=== PATIENT | male | born 1955 | race Caucasian/White ===

== ENCOUNTER 2023-06-20 19:10 | Inpatient (IN) | payer BC, MEDICARE, SELFPAY ==
--- NOTE | 2023-06-19 19:23 | ECG_ITS ---
The [facility] Test Date: 2023-06-20 Pat Name: FIONA BOSS Department: Room: [facility] Gender: Male [employer]: : 1955 Requested By: [id number] Order Number: [id number] Reading MD: RANJANA JOSEPH Measurements Intervals Murray Rate: 116 P: 16 HI: 172 QRS: -42 QRSD: 86 T: 26 QT: 298 QTc: 367 Interpretive Statements 1120 Sinus tachycardia 7200 Abnormal left axis deviation 9140 abnormal rhythm ECG No previous ECG available for comparison Electronically Signed On 06-21-2023 6:45:12 EDT by RANJANA JOSEPH
[2023-06-20] VITALS (19 sets, daily range): BP systolic 83–149; BP diastolic 59–100; PULSE 18–118; TEMP 36.6–40.3; O2SAT 90–95; BMI 25.7; BMI 27.1
--- NOTE | 2023-06-20 19:26 | XR_ITS ---
The [place] [id number] Patient Name: FIONA BOSS MRN: [id number] date: 1955 Sex: M Assigned Patient Location: ED.MAIN Current Patient Location: ED.MAIN Accession/Order Number: [id number] Exam Date: 06/20/2023 19:48 Report Date: 06/20/2023 21:07 At the request of: LINDY MARKER Procedure: XR chest 2V EXAMINATION: XR chest 2V, , 06/20/2023 7:48 PM EDT INDICATION: fever, cough HISTORY: Ordering Provider Reason for Exam: fever, cough Technologist Note: Additional: COMPARISON: None. TECHNIQUE: Chest x-ray: Two views. FINDINGS: Patchy infiltrates are seen in the right lung. No significant pleural effusion or obvious pneumothorax is seen. Heart is normal in size. Bony thorax is unremarkable. XR/XR chest 2V IMPRESSION: Patchy infiltrates are seen in the right lung. Electronically authenticated by: KEELEY VILLAR Date: 06/20/2023 21:07
--- NOTE | 2023-06-20 19:33 | ED_ITS ---
HPI HPI - General Adult General Chief complaint: Weakness Stated complaint: General Weakness Time Seen by Provider: 06/20/23 19:16 Source: patient and family Mode of arrival: Wheelchair Limitations: physical limitation History of Present Illness HPI narrative: 68-year-old male with history of hypothyroidism is brought to the emergency department by his for evaluation of a fever that started Ortega night. She has not taken his temperature but he has felt hot and had chills and been weak. His appetite has been decreased. He has had an occasional dry cough. He has also had body aches. He has been urinating normally and denies any dysuria or hematuria. She has been giving him ibuprofen and Advil for the fever. He did not have any medications since this morning before the patient's went to work. He has been eating, mostly fruit. He has not had any nausea vomiting and diarrhea. He admits to a mild headache. He appears weak. He does not have any skin rash. He has no neck pain or stiffness. He denies any chest pain. He has has been occasional dry cough. Related Data Home Medications ?Medication ?Instructions ?Recorded ?Confirmed levothyroxine 100 mcg tablet 100 mcg PO .once daily 06/20/23 06/20/23 Allergies Allergy/AdvReac Type Severity Reaction Status Date / Time aspirin Allergy Severe Anaphylaxis Verified 06/20/23 19:24 Penicillins Allergy Hives Verified 06/20/23 19:24 Opioid HPI Opioid Management Most Recent Opioid Data: Last Pain Assessment 06/21/23 02:00 Last MAR Pain Assessment 06/20/23 19:58 Last ORT Total Score 0 06/20/23 22:33 Last ORT Risk Category Low Risk 06/20/23 22:33 Review of Systems ROS Status of ROS 10 or more systems reviewed and unremark able except as noted in history and below [facility] Medical History (Updated 06/21/23 @ 02:42 by Meaghan Rowan MD) Hypothyroidism ?E03.9 - Hypothyroidism, unspecified (ICD-10) Family History (Updated 06/20/23 @ 22:37 by Bee Kuo) Other Family history of cancer Family history of stroke Social History (Updated 06/20/23 @ 22:38 by Bee Kuo) Within the past year, how often did you have a drink containing alcohol: never Score interpretation: A score less than 4 is consistent with normal alcohol consumption. Smoking status: Never smoker Non-prescribed substance use: denies use Previous occupational history: [employer] Highest level of school completed/degree received: Associate degree: occupational, technical, vocational program Are you now , , , , never or living with a partner: In a typical week, how many times do you talk on the telephone with family, friends, or neighbors: 3 or more times per week How often do you get together with friends or relatives: 3 or more times per week Little interest or pleasure in doing things: not at all Feeling down, depressed, or hopeless: not at all Feel stressed/tense/nervous/anxious/difficulty sleeping: not at all Do you think of yourself as: straight/heterosexual Gender Identity: male Exam Narrative Exam Narrative: Nurses note and vital signs reviewed; He is febrile, tachycardic and mildly hypoxic with pulse ox of 91 percent on room air General: Generally weak and pale, no respiratory distress Skin: Warm, dry, no pallor noted. There is no rash noted. Head: Normocephalic, atraumatic Eye: Normal conjunctiva, no drainage, EOMI. PERRL Ears, Nose, Mouth, and Throat: oral mucosa is sticky, there is no swelling of the tongue, uvula or pharyngeal soft tissues, no tonsillar erythema or hypertrophy noted Cardiovascular: Regular Rate and Rhythm S1S2, no murmurs, rubs or gallops, pulses are brisk and equal bilaterally Respiratory: Patient is in no distress, no accessory muscle use, lungs are clear to auscultation, no wheezing, rales or rhonchi Back: non-tender, no CVA tenderness bilaterally to percussion. GI: Normal bowel sounds, no tenderness to palpation, no masses appreciated. No rebound, guarding, or rigidity noted. Musculoskeletal: The patient has no evidence of calf tenderness, no pitting edema, symmetrical pulses noted bilaterally Neurological: A&O x4, normal speech, no focal deficits, generalized weakness requiring nurses to help him out of car Psychiatric: Cooperative Constitutional Vital Signs, click to edit/add: Last Vital Signs Temp 97.8 F 06/20/23 22:14 Pulse 69 06/21/23 02:00 Resp 20 06/20/23 22:44 BP 100/72 06/20/23 22:25 Pulse Ox 90 L 06/20/23 22:44 O2 Del Method Room Air 06/20/23 22:44 Course Vital Signs Vital signs: Vital Signs Temperature 98.3 F 06/20/23 19:19 Pulse Rate 118 H 06/20/23 19:19 Respiratory Rate 24 H 06/20/23 19:19 Blood Pressure 148/100 H 06/20/23 19:19 Pulse Oximetry 91 L 06/20/23 19:19 Oxygen Delivery Method Room Air 06/20/23 19:19 Temperature 97.8 F 06/20/23 22:14 Pulse Rate 69 06/21/23 02:00 Respiratory Rate 20 06/20/23 22:44 Blood Pressure 100/72 06/20/23 22:25 Pulse Oximetry 90 L 06/20/23 22:44 Oxygen Delivery Method Room Air 06/20/23 22:44 Medical Decision Making MDM Narrative Medical decision making narrative: This 68-year-old male history of hypothyroidism is brought to the emergency department by his for evaluation of a fever since last Sunday. He has a mild dry cough. He is very weak with body aches and chills. His appetite is been decreased but he has been eating fruit according to his . She has been giving him ibuprofen and Aleve for his fever. His last dose was earlier in the day. On arrival he had to be helped out of the car due to his generalized weakness. He was very warm to the touch and an oral temperature was normal. Rectal temperature was 104.5. A septic workup was ordered and he was given IV fluids, Tylenol and Toradol. He has a normal white count and hemoglobin. Electrolytes are normal with the exception of a mildly low sodium of 132 and potassium of 3.1. He had a normal lactic acid but procalcitonin was elevated. He was given oral potassium replacement. Chest x-ray shows right sided infiltrate and he was medicated with IV Levaquin as he is penicillin ALLERGIC. Respiratory panel was negative. His pulse ox on room air was in the low 90s and he was given a respiratory treatment and 125 mg of IV Solu-Medrol. Due to his high fever and pneumonia with hypoxia he will be admitted. The case was discussed with the hosp italist he is accepted for admission to [facility]. Blood cultures are pending at this time. Lab Data Labs: Lab Results 06/20/23 06/20/23 Range/Units 19:36 19:41 WBC 10.6 (4.0-11.0) 10^3/uL RBC 5.22 (4.70-6.10) 10^6/uL Hgb 15.3 (14.0-18.0) g/dL Hct 45.5 (42.0-54.0) % MCV 87.2 (80.0-94.0) fL MCH 29.3 (25.9-34.0) pg MCHC 33.6 (29.9-35.2) g/dL RDW 13.0 (11.0-15.0) % Plt Count 217 (150-450) 10^3/uL MPV 9.6 (9.5-13.5) fL Neut % (Auto) 85.6 H (43.0-75.0) % Lymph % (Auto) 7.8 L (20.5-60.0) % [place] % (Auto) 5.5 (1.7-12.0) % Eos % (Auto) 0.0 L (0.9-7.0) % Baso % (Auto) 0.3 (0.2-2.0) % Neut # (Auto) 9.1 H (1.4-6.5) 10^3/uL Lymph # (Auto) 0.8 L (1.2-3.8) 10^3/uL [place] # (Auto) 0.6 (0.3-0.8) 10^3/uL Eos # (Auto) 0.0 (0.0-0.7) 10^3/uL Baso # (Auto) 0.0 (0.0-0.1) 10^3/uL Abs Immat Gran (auto) 0.08 H (0.00-0.03) 10^3/uL Imm/Tot Granulo (auto) 0.8 H (0.0-0.5) % PT 11.2 (9.0-11.6) sec INR 1.06 APTT 32.6 (22.3-36.2) sec Sodium 132 L (136-145) mmol/L Potassium 3.1 L (3.5-5.1) mmol/L Chloride 97 L (98-107) mmol/L Carbon Dioxide 20.4 L (21.0-32.0) mmol/L Anion Gap 17.7 BUN 23.0 H (7.0-18.0) mg/dL Creatinine 1.68 H (0.70-1.30) mg/dL Est GFR ( Amer) 49 L (>=60) Est GFR (Non-Af Amer) 41 L (>=60) BUN/Creatinine Ratio 13.7 Glucose 141 H (74-106) mg/dL Lactate 2.0 (0.4-2.0) mmol/L Calcium 8.8 (8.5-10.1) mg/dL Total Bilirubin 1.2 H (0.2-1.0) mg/dL AST 38 H (15-37) U/L ALT 27 (16-63) U/L Alkaline Phosphatase 70 (46-116) U/L Total Protein 7.1 (6.4-8.2) g/dL Albumin 2.9 L (3.4-5.0) g/dL Globulin 4.2 g/dL Albumin/Globulin Ratio 0.7 Procalcitonin 0.63 H (0.00-0.50) ng/mL Adenovirus (PCR) Not detected (NOT DETECTE) C. pneumoniae DNA (PCR) Not detected (NOT DETECTE) Coronavirus Type OC43 Not detected (NOT DETECTE) Coronavirus Type HKU1 Not detected (NOT DETECTE) Coronavirus Type 229E Not detected (NOT DETECTE) Coronavirus Type NL63 Not detected (NOT DETECTE) Human Metapneumovir PCR Not detected (NOT DETECTE) M. pneumoniae (PCR) Not detected (NOT DETECTE) Parainfluenza PCR Not detected (NOT DETECTE) Parainfluenza 2 (PCR) Not detected (NOT DETECTE) Parainfluenza 3 (PCR) Not detected (NOT DETECTE) Parainfluenza 4 (PCR) Not detected (NOT DETECTE) RSV (RT-PCR) Not detected (NOT DETECTE) Entero/Rhino (PCR) Not detected (NOT DETECTE) SARS-CoV-2 (PCR) Not detected (NOT DETECTE) Bordetella pertussis (PCR) Not detected (NOT DETECTE) B parapertussis DNA PCR Not detected (NOT DETECTE) Influenza Type A (PCR) Not detected (NOT DETECTE) Influenza Type B (PCR) Not detected (NOT DETECTE) ECG Data Attestation: I personally reviewed and interpreted this ECG as follows: (Sinus tachycardia at 116 beats for minute, left axis deviation, no acute ST segment elevation or T-wave inversion) Discharge Plan Discharge Chief Complaint: Weakness Clinical Impression: Pneumonia Patient Disposition: Admitted As Inpatient Time of Disposition Decision: 21:48 Condition: Fair Discharge Date/Time: 06/20/23 22:25
[2023-06-20 19:54] LABS: Basophils Percent Auto 0.3 % (0.2-2.0); Hematocrit 45.5 % (42.0-54.0); Hemoglobin 15.3 g/dL (14.0-18.0); Immature Granulocytes Abs Auto 0.08 10^3/uL (0.00-0.03); Immature Granulocytes Pct Auto 0.8 % (0.0-0.5); Lymphocytes Absolute Auto 0.8 10^3/uL (1.2-3.8); Lymphocytes Percent Auto 7.8 % (20.5-60.0); Mean Corpuscular HGB Conc 33.6 g/dL (29.9-35.2); Mean Corpuscular Hemoglobin 29.3 pg (25.9-34.0); Mean Corpuscular Volume 87.2 fL (80.0-94.0); Mean Platelet Volume 9.6 fL (9.5-13.5); Monocytes Absolute Auto 0.6 10^3/uL (0.3-0.8); Monocytes Percent Auto 5.5 % (1.7-12.0); Neutrophils Absolute Auto 9.1 10^3/uL (1.4-6.5); Neutrophils Percent Auto 85.6 % (43.0-75.0); Platelet Count 217 10^3/uL (150-450); Red Blood Count 5.22 10^6/uL (4.70-6.10); White Blood Count 10.6 10^3/uL (4.0-11.0)
[2023-06-20 19:55] LABS: Adenovirus NOT DETECTED (NOT DETECTE); Bordetella parapertussis NOT DETECTED (NOT DETECTE); Coronavirus 229E NOT DETECTED (NOT DETECTE); Coronavirus HKU1 NOT DETECTED (NOT DETECTE); Coronavirus NL63 NOT DETECTED (NOT DETECTE); Coronavirus OC43 NOT DETECTED (NOT DETECTE); Human Metapneumovirus NOT DETECTED (NOT DETECTE); Human Rhinovirus/Enterovirus NOT DETECTED (NOT DETECTE); Influenza A NOT DETECTED (NOT DETECTE); Influenza B NOT DETECTED (NOT DETECTE); Mycoplasma pneumoniae NOT DETECTED (NOT DETECTE); Parainfluenza Virus 1 NOT DETECTED (NOT DETECTE); Parainfluenza Virus 2 NOT DETECTED (NOT DETECTE); Parainfluenza Virus 3 NOT DETECTED (NOT DETECTE); Parainfluenza Virus 4 NOT DETECTED (NOT DETECTE); Respiratory Syncytial Virus NOT DETECTED (NOT DETECTE); SARS-CoV-2 NOT DETECTED (NOT DETECTE)
[2023-06-20] MEDS: ACETAMINOPHEN 325 MG TABLET 650 MG PO (19:58)
[2023-06-20] MEDS: LACTATED RINGER'S SOLUTION 1,000 ML 1000 ML IV ×2 (19:58→22:19)
[2023-06-20 20:19] LABS: Alanine Aminotransferase 27 U/L (16-63); Albumin Globulin Ratio 0.7; Albumin Level 2.9 g/dL (3.4-5.0); Alkaline Phosphatase 70 U/L (46-116); Anion Gap 17.7; Aspartate Amino Transferase 38 U/L (15-37); BUN Creatinine Ratio 13.7; Bilirubin Total 1.2 mg/dL (0.2-1.0); Calcium 8.8 mg/dL (8.5-10.1); Carbon Dioxide 20.4 mmol/L (21.0-32.0); Chloride 97 mmol/L (98-107); Estimated GFR (African America 49 (>=60); Estimated GFR (Non-African Ame 41 (>=60); Globulin 4.2 g/dL; Glucose 141 mg/dL (74-106); Potassium 3.1 mmol/L (3.5-5.1); Sodium 132 mmol/L (136-145); Total Protein 7.1 g/dL (6.4-8.2)
[2023-06-20 20:21] LABS: Partial Thromboplastin Time 32.6 sec (22.3-36.2)
[2023-06-20 20:22] LABS: INR 1.06; Prothrombin Time 11.2 sec (9.0-11.6)
[2023-06-20] MEDS: LEVOFLOXACIN IN DEXTROSE 5 % 750 MG/150 ML IV.SOLN 100 MG IV (20:28)
[2023-06-20 20:31] LABS: PROCALCITONIN 0.63 ng/mL (0.00-0.50)
[2023-06-20] MEDS: KETOROLAC TROMETHAMINE 30 MG/ML VIAL IVP (20:31)
[2023-06-20] MEDS: POTASSIUM CHLORIDE 10 MEQ ER TABLET 20 MEQ PO (21:10)
[2023-06-20] MEDS: IPRATROPIUM/ALBUTEROL SULFATE 3 ML AMPUL.NEB IH (21:24)
[2023-06-20] MEDS: METHYLPREDNISOLONE SOD SUCC PF 125 MG/2 ML VIAL IVP (22:03)
[2023-06-20 23:22] LABS: Lactate/Lactic Acid 2.7 mmol/L (0.4-2.0)
[2023-06-20] MEDS: 0.9 % SODIUM CHLORIDE 1,000 ML 100 ML IV (23:38)
[2023-06-21] VITALS (57 sets, daily range): BP systolic 110–166; BP diastolic 72–108; PULSE 62–85; TEMP 34.4–36.4; O2SAT 87–96
[2023-06-21 04:52] LABS: Basophils Percent Auto 0.1 % (0.2-2.0); Hematocrit 42.6 % (42.0-54.0); Hemoglobin 14.3 g/dL (14.0-18.0); Immature Granulocytes Abs Auto 0.06 10^3/uL (0.00-0.03); Immature Granulocytes Pct Auto 0.7 % (0.0-0.5); Lymphocytes Absolute Auto 0.7 10^3/uL (1.2-3.8); Mean Corpuscular HGB Conc 33.6 g/dL (29.9-35.2); Mean Corpuscular Hemoglobin 29.4 pg (25.9-34.0); Mean Corpuscular Volume 87.7 fL (80.0-94.0); Mean Platelet Volume 9.9 fL (9.5-13.5); Monocytes Absolute Auto 0.4 10^3/uL (0.3-0.8); Monocytes Percent Auto 4.1 % (1.7-12.0); Neutrophils Absolute Auto 7.9 10^3/uL (1.4-6.5); Neutrophils Percent Auto 87.1 % (43.0-75.0); Platelet Count 206 10^3/uL (150-450); Red Blood Count 4.86 10^6/uL (4.70-6.10)
[2023-06-21 05:09] LABS: Lactate/Lactic Acid 1.8 mmol/L (0.4-2.0)
[2023-06-21] MEDS: LEVOTHYROXINE SODIUM 100 MCG TABLET PO (05:37)
[2023-06-21] MEDS: METHYLPREDNISOLONE SOD SUCC PF 125 MG/2 ML VIAL 40 MG IVP (05:40)
[2023-06-21 05:47] LABS: Alanine Aminotransferase 22 U/L (16-63); Albumin Globulin Ratio 0.6; Albumin Level 2.4 g/dL (3.4-5.0); Alkaline Phosphatase 60 U/L (46-116); Anion Gap 14.1; Aspartate Amino Transferase 27 U/L (15-37); BUN Creatinine Ratio 17.3; Calcium 8.6 mg/dL (8.5-10.1); Carbon Dioxide 22.1 mmol/L (21.0-32.0); Chloride 102 mmol/L (98-107); Estimated GFR (African America 54 (>=60); Estimated GFR (Non-African Ame 44 (>=60); Globulin 4.1 g/dL; Glucose 189 mg/dL (74-106); Potassium 3.2 mmol/L (3.5-5.1); Sodium 135 mmol/L (136-145); Total Protein 6.5 g/dL (6.4-8.2)
[2023-06-21 05:50] LABS: TSH W/ REFLEX FT4 2.896 uIU/mL (0.358-3.740)
--- NOTE | 2023-06-21 06:04 | CT_ITS ---
The [address] [address] Patient Name: FIONA BOSS MRN: [id number] date: 1955 Sex: M Assigned Patient Location: MS Current Patient Location: ICU Accession/Order Number: [id number] Exam Date: 06/21/2023 06:30 Report Date: 06/21/2023 06:45 At the request of: CALDERON APPLE Procedure: CT head/brain wo con INDICATION: 68 years old; Male. Tremors. Hypothermia. TECHNIQUE: CT Head (ax/cor/sag reformats). Ionizing radiation dose reduced via iterative reconstruction/FBP blend and body size kV/mA adjustment. Comparison: None FINDINGS: POSTOPERATIVE CHANGES: None. BRAIN PARENCHYMA: No intraparenchymal or extra-axial hemorrhage. No mass effect. No midline shift or herniation. Normal waldrop/white differentiation. VENTRICLES/EXTRA-AXIAL SPACES: Enlarged, consistent with atrophy. SINUSES/MASTOIDS: There is opacification of the visualized portion of the maxillary sinus on the right. Maxillary sinuses are not completely visible. Mastoids and middle ears are clear. MSK: No displaced or depressed calvarial fracture. OTHER: No hyperdense intraluminal thrombus. Vascular calcifications are present in the anterior and posterior circulation. CT/CT head/brain wo con IMPRESSION: 1. No acute intracranial abnormality. No hemorrhage or mass effect. 2. Atrophy. 3. Vascular calcification. 4. Opacification of the visualized portion of the maxillary sinus on the right. Electronically authenticated by: MARILYN DUTTON Date: 06/21/2023 06:45
--- NOTE | 2023-06-21 06:52 | PC.NURSE ---
arrived to room from CT on bed. transferred self onto ICU bed. Pt weak and fatigued. A and O x3. pale in color and clammy/diaphoretic. denies complaints of pain. report received from Bee KNAPP at bedside.
--- NOTE | 2023-06-21 08:52 | P.HP_ITS ---
HPI H&P: HPI History of Present Illness Chief complaint: Fever, Pneumonia with Hypoxia Narrative: Patient is a 68 y.o white male with past history only of hypothyroidism. He was in his normal state of health until this past sunday when he developed body aches, weakness, dry cough, fevers and chills. His is present at bedside and states he went to Urgent Care on sunday where they performed Covid and flu test that were negative. He was told he had a virus and it just needed to run it's course. Patient denies n/v/d, or urinary symptoms. He presented to the ER last night with increased weakness, Fever 104, chills, sweats, cough. ER evaluation showed infiltrates on the right lung consistent with Community acquired Pneumonia. Viral testing here was also negative. Patient was also found to have severe sepsis, with elevated lactate 2.7, elevated procalcitonin 0.63, tachycardia of 110, fever 104 and acute renal failure. He was given fluid resusitation which improved his lactate levels. Started on Levaquin of CAP. Patient also given Tylenol and Toradol for fever. 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 CT of the head obtained which was negative. repeat lactate normal 1.8. Bear Hugger placed and at my request patient was transferred to ICU. Thyroid labs were normal. Patient is not taking any other medications other than thyroid meds. Troponin and ProBNP, ddimer ordered and both normal but elevated Ddimer of 9.18. UA obtained which showed microscopic hematuria. CTA of the chest and abdomen pending. At the time of admission, patient complains only of significant chills and sweats. I have also encouraged warming IVF. Opioid HPI Opioid Management Most Recent Opioid Data: Last Pain Assessment 06/21/23 12:00 Last APR Pain Assessment 06/20/23 19:58 Last ORT Total Score 0 06/20/23 22:33 Last ORT Risk Category Low Risk 06/20/23 22:33 Review of Systems ROS Narrative ROS: a complete review of systems were reviewed with patient and are positive as below or listed in History of Chief Complaint. General: fever, chills, sweats Head: no headache, trauma, visual changes, nausea or vomiting Skin: no reported rashes, itching or sores Eyes: no blurriness of vision Ears: no reported hearing loss, vertigo, earache, or tinnitus Throat: no sore throat, hoarseness, swelling of neck, or tongue pain Heart: no chest pain Lungs: no shortness of breath but dry cough GI: no diarrhea or vomiting/nausea Urinary: no urinary urgency, frequency or pain Neuro: no numbness or tingling HEM: no bleeding issues or bruising ENDO: thyroid problems Psych: no anxiety or depression PFSH PFS Medical History (Updated 06/21/23 @ 12:29 by Arlene Mccracken DO) Hypothyroidism ?E03.9 - Hypothyroidism, unspecified (ICD-10) Family History Other Family history of cancer Family history of stroke Social History Within the past year, how often did you have a drink containing alcohol: never Score interpretation: A score less than 4 is consistent with normal alcohol consumption. Smoking status: Never smoker Non-prescribed substance use: denies use Previous occupational history: [employer] Highest level of school completed/degree received: Associate degree: occupational, technical, vocational program Are you now , , , , never or living with a partner: In a typical week, how many times do you talk on the telephone with family, friends, or neighbors: 3 or more times per week How often do you get together with friends or relatives: 3 or more times per week Little interest or pleasure in doing things: not at all Feeling down, depressed, or hopeless: not at all Feel stressed/tense/nervous/anxious/difficulty sleeping: not at all Do you think of yourself as: straight/heterosexual Gender Identity: male Meds Home Medications and Allergies Home Medications ?Medication ?Instructions ?Recorded ?Confirmed ?Type levothyroxine 100 mcg tablet 100 mcg PO .once daily 06/20/23 06/20/23 History Allergies Allergy/AdvReac Type Severity Reaction Status Date / Time aspirin Allergy Severe Anaphylaxis Verified 06/20/23 19:24 latex Allergy Mild Verified 06/21/23 08:49 Penicillins Allergy Hives Verified 06/20/23 19:24 Exam Narrative Exam Narrative: General: Patient is alert, and oriented to person, place and time with normal affect, proper hygiene Skin: no visible rashes, or ulcers, but skin pallor Head: atraumatic, acephalic Eyes: PERRLA, no nystagmus present, conjunctiva clear, no scleral icterus Ears: normal Tympanic Membrane on right, cerumen impaction of the left ear, normal gross auditory acuity Nose: symmetric, no discharge, no maxillary or frontal sinus tenderness Mouth/Throat: some erythema, no exudate, or tonsillar enlargement, normal dentition Neck: no masses palpated, normal thyroid Heart: Normal rate and rhythm, no murmurs/rubs/gallops Lungs: no audible wheezes, crackles and normal breath sounds all lung wallace Abdomen: Normal audible bowel sounds, no distension, No palpable masses, no organomegaly, no rebound/guarding/ or rigidity Musculoskeletal: no swelling bilateral lower extremities Neuro: CN II-X grossly intact Constitutional Vital Signs, click to edit/add: Last Vital Signs Temp 93.9 F L 06/21/23 05:44 Pulse 77 06/21/23 07:46 Resp 16 06/21/23 07:35 BP 120/79 06/21/23 06:55 Pulse Ox 93 L 06/21/23 06:43 O2 Del Method Room Air 06/21/23 06:43 Results Labs Labs: Short CBC 06/20/23 06/21/23 Range/Units 19:41 04:10 WBC 10.6 9.0 (4.0-11.0) 10^3/uL Hgb 15.3 14.3 (14.0-18.0) g/dL Hct 45.5 42.6 (42.0-54.0) % Plt Count 217 206 (150-450) 10^3/uL BMP 06/20/23 06/21/23 19:41 04:10 Sodium 132 L 135 L Potassium 3.1 L 3.2 L Chloride 97 L 102 Carbon Dioxide 20.4 L 22.1 BUN 23.0 H 27.0 H Creatinine 1.68 H 1.56 H Glucose 141 H 189 H Calcium 8.8 8.6 Liver Function 06/20/23 06/21/23 Range/Units 19:41 04:10 Total Bilirubin 1.2 H 1.0 (0.2-1.0) mg/dL AST 38 H 27 (15-37) U/L ALT 27 22 (16-63) U/L Alkaline Phosphatase 70 60 (46-116) U/L Albumin 2.9 L 2.4 L (3.4-5.0) g/dL Assessment and Plan Assessment and Plan (1) Severe sepsis: Assessment and Plan: Please see labs findings that support the diagnosis above, received IVF, continue with warm fluids NS @200, UA negative but with hematuria, chest x-ray positive for pneumonia, continue Levaquin but may need additional staph coverage. No history of MRSA or drug resistant infections. Blood cultures pending. trop and probnp ok but elevated d-dimer, CTA pending. Hypothermia most likely from severe sepsis. (2) Pneumonia: Assessment and Plan: as seen on chest X-ray, no hypoxia, continue levaquin. Qualifiers: Laterality: right Lung location: unspecified part of lung Pneumonia type: due to unspecified organism Qualified Code(s): J18.9 - Pneumonia, unspecified organism (3) Hypothermia: Assessment and Plan: sepsis causing. continue warm fluids, Bear hugger. Monitor for acute cardiac/ or systems decompensation as hypothermia that does not improve is concerning for serious deterioration. Qualifiers: Encounter type: initial encounter Qualified Code(s): T68.XXXA - Hypothermia, initial encounter (4) Hypothyroidism: Assessment and Plan: NOrmal TFT's, continue levothyroxine, appears in no thyroid storm. Qualifiers: Hypothyroidism type: acquired Qualified Code(s): E03.9 - Hypothyroidism, unspecified (5) JOE (acute kidney injury): Assessment and Plan: with UA showing microscopic hematuria, order CT abdomen. continue levaquin. IVF. Plan Patient is a full code continue lovenox for DVT prophylaxis Critical Care Time is 40min Patient is inpatient status and is expected to cross 2 midnights for medically necessary hospital care/treatment for severe sepsis and hypothermia.
[2023-06-21] MEDS: 0.9 % SODIUM CHLORIDE 1,000 ML 150 ML IV (09:44)
[2023-06-21 10:03] LABS: Troponin I High Sensitivity 5.1 pg/mL (4.0-76.1)
[2023-06-21 10:43] LABS: D Dimer 9.18 mg/L FEU (<=0.59)
[2023-06-21 10:46] LABS: Bilirubin Urine SMALL (NEGATIVE); Blood Urine MODERATE (NEGATIVE); Clarity Urine CLEAR (CLEAR); Color Urine DK. YELLOW (YELLOW); Glucose Urine UA NEGATIVE (NEGATIVE); Ketones Urine 15 mg/dL (NEGATIVE); Leukocyte Esterase Urine NEGATIVE (NEGATIVE); Nitrite Urine NEGATIVE (NEGATIVE); Protein Urine 100 mg/dL (NEG/TRACE); Specific Gravity Urine >=1.030 (1.005-1.025)
--- NOTE | 2023-06-21 10:53 | CT_ITS ---
[address] [address] Patient Name: FIONA BOSS MRN: [id number] date: 1955 Sex: M Assigned Patient Location: ICU Current Patient Location: ICU Accession/Order Number: [id number] Exam Date: 06/21/2023 11:28 Report Date: 06/21/2023 12:33 At the request of: CARLITOS OLIVEIRA Procedure: CT angio chest EXAMINATION: CT angio chest, CT abdomen w con HISTORY: elevated D-dimer COMPARISON: No relevant comparison available. TECHNIQUE: Multi-planar CT images were created with IV contrast. Axial, Coronal, and Sagittal images. Dose reduction techniques were achieved by using automated exposure control and/or adjustment of mA and/or kV according to patient size and/or use of iterative reconstruction technique. 3-D reconstruction was performed on a separate workstation. FINDINGS: VASCULATURE: Single, long strand of nonocclusive thrombus beginning at origin of left lower lobe pulmonary artery extending into lateral basilar segmental artery. LUNGS: Dense infiltrates versus partial consolidation of the basilar segments of the lower lobes bilaterally, and small amount within the posterior segment of the right upper lobe. PLEURA: No mass, effusion, or pneumothorax. MATILDA: Mild lymphadenopathy bilaterally. MEDIASTINUM: Minimal adenopathy. CARDIAC: No enlargement, pericardial effusion, or pericardial thickening. AORTA: No aneurysm or dissection. CHEST WALL: No mass or axillary adenopathy. BONES: No bone lesion or fracture. LIVER: A few small hypodensities favoring cysts or hemangiomas. BILIARY: Nonobstructing stone within gallbladder. PANCREAS: No lesion, fluid collection, ductal dilatation, or atrophy. SPLEEN: No enlargement or focal lesion. ADRENALS: No mass or enlargement. KIDNEYS: Nonobstructing 10 mm stone within left kidney. BOWEL/MESENTERY: Prominent diverticulosis throughout the visible colon without acute inflammatory changes. Normal appendix. No abnormal dilation, obstruction, or acute inflammatory changes. AORTA/VASCULAR: No aneurysm or dissection. RETROPERITONEUM: No mass or adenopathy. ABDOMINAL WALL: No mass or hernia. BONES: No bony lesion or fracture. OTHER: Negative. CT/CT angio chest IMPRESSION: 1. Small burden of nonobstructive pulmonary embolus within left lower lobe. 2. Dense, moderate-large amount of infiltrates versus consolidation within bilateral lower lobes and small amount within right upper lobe; pneumonia versus extensive atelectasis. 3. Mild lymphadenopathy, likely reactive. 4. Cholelithiasis. 5. Nonobstructing left nephrolithiasis. 6. Colonic diverticulosis. No acute bowel findings. Findings of pulmonary embolism or discussed with Nely in the radiology department via telephone at 12:24 PM to be relayed to the patient's location within the hospital and the ordering physician. . Electronically authenticated by: AMMY SABILLON Date: 06/21/2023 12:33
--- NOTE | 2023-06-21 10:53 | CT_ITS ---
[address] [address] Patient Name: FIONA BOSS MRN: [id number] date: 1955 Sex: M Assigned Patient Location: ICU Current Patient Location: ICU Accession/Order Number: [id number] Exam Date: 06/21/2023 11:28 Report Date: 06/21/2023 12:33 At the request of: CARLITOS OLIVEIRA Procedure: CT abdomen w con EXAMINATION: CT angio chest, CT abdomen w con HISTORY: elevated D-dimer COMPARISON: No relevant comparison available. TECHNIQUE: Multi-planar CT images were created with IV contrast. Axial, Coronal, and Sagittal images. Dose reduction techniques were achieved by using automated exposure control and/or adjustment of mA and/or kV according to patient size and/or use of iterative reconstruction technique. 3-D reconstruction was performed on a separate workstation. FINDINGS: VASCULATURE: Single, long strand of nonocclusive thrombus beginning at origin of left lower lobe pulmonary artery extending into lateral basilar segmental artery. LUNGS: Dense infiltrates versus partial consolidation of the basilar segments of the lower lobes bilaterally, and small amount within the posterior segment of the right upper lobe. PLEURA: No mass, effusion, or pneumothorax. MATILDA: Mild lymphadenopathy bilaterally. MEDIASTINUM: Minimal adenopathy. CARDIAC: No enlargement, pericardial effusion, or pericardial thickening. AORTA: No aneurysm or dissection. CHEST WALL: No mass or axillary adenopathy. BONES: No bone lesion or fracture. LIVER: A few small hypodensities favoring cysts or hemangiomas. BILIARY: Nonobstructing stone within gallbladder. PANCREAS: No lesion, fluid collection, ductal dilatation, or atrophy. SPLEEN: No enlargement or focal lesion. ADRENALS: No mass or enlargement. KIDNEYS: Nonobstructing 10 mm stone within left kidney. BOWEL/MESENTERY: Prominent diverticulosis throughout the visible colon without acute inflammatory changes. Normal appendix. No abnormal dilation, obstruction, or acute inflammatory changes. AORTA/VASCULAR: No aneurysm or dissection. RETROPERITONEUM: No mass or adenopathy. ABDOMINAL WALL: No mass or hernia. BONES: No bony lesion or fracture. OTHER: Negative. CT/CT abdomen w con IMPRESSION: 1. Small burden of nonobstructive pulmonary embolus within left lower lobe. 2. Dense, moderate-large amount of infiltrates versus consolidation within bilateral lower lobes and small amount within right upper lobe; pneumonia versus extensive atelectasis. 3. Mild lymphadenopathy, likely reactive. 4. Cholelithiasis. 5. Nonobstructing left nephrolithiasis. 6. Colonic diverticulosis. No acute bowel findings. Findings of pulmonary embolism or discussed with Nely in the radiology department via telephone at 12:24 PM to be relayed to the patient's location within the hospital and the ordering physician. . Electronically authenticated by: AMMY SABILLON Date: 06/21/2023 12:33
[2023-06-21 11:00] LABS: Urine Microscopic Indicated YES
[2023-06-21 11:20] LABS: Bacteria Urine TRACE #/HPF (NONE SEEN)
[2023-06-21 11:21] LABS: Crystals Seen? None Seen #/HPF (None Seen); Mucus Urine MODERATE (NONE SEEN); Squamous Epithelial Cell Urine RARE #/LPF (NONE/RARE)
[2023-06-21 11:23] LABS: Cast Seen? SEEN #/LPF (NONE SEEN); Coarse Granular Casts Urine MODERATE
[2023-06-21 11:24] LABS: Urine Culture Indicated NO
--- NOTE | 2023-06-21 11:50 | CM.NOTE ---
Rounds made with Dr. Mccracken, discussed plan of care with nursing. Pt has not had any urinary output, plan to bladder scan and send UA. Awaiting AM lab work for further testing. No discharge today. Dr. Mccracken will add PT and OT for evaluation.
[2023-06-21] MEDS: 0.9 % SODIUM CHLORIDE 1,000 ML 200 ML IV ×2 (12:09→19:33)
[2023-06-21] MEDS: GUAIFENESIN 600 MG TAB.ER.12H PO ×2 (12:09→22:04)
--- NOTE | 2023-06-21 12:31 | CA_ITS ---
Patient Name: FIONA BOSS MR#: [id number] : 1955 Exam Date: 06/21/2023 Ordering Doctor: CARLITOS OLIVEIRA . ECHOCARDIOGRAM REPORT PROCEDURE: CA ECHO DOPPLER COMPLETE INDICATIONS: new/acute Pulmonary embolus, severe sepsis, pneumonia COMPARISON: None. DESCRIPTION: COMPLETE ECHOCARDIOGRAM Real-time transthoracic echocardiography with 2D, M-mode, spectral and color flow Doppler performed. QUALITY: Technical quality was good. 74 , 210#, BSA 2.22 m2, BP 131/92 LEFT VENTRICLE: Normal chamber size. LV EF: Global left ventricular systolic function is difficult to assess but appears preserved; visually estimated ejection fraction is 60%. Unable to assess regional wall motion abnormalities. DIASTOLIC: Normal diastolic function. ATRIAL SEPTUM: Inadequately seen. LEFT ATRIUM: Normal chamber size. RIGHT ATRIUM: Normal chamber size. RIGHT VENTRICLE: Poorly seen but appears normal in size and systolic function. TRICUSPID VALVE: Normal mobility and thickness. No stenosis with no regurgitation. MITRAL VALVE: Normal mobility and thickness. No evidence of mitral valve stenosis. There is no mitral annular calcification. Trivial mitral regurgitation. AORTIC VALVE: Normal trileaflet appearance. No visible sclerosis. Normal leaflet mobility. No evidence of aortic valve stenosis. No aortic regurgitation. AORTIC ROOT: Normal diameter and appearance. Ascending aorta is normal in size. PULMONIC VALVE: Normal thickness and mobility. No stenosis. Trivial regurgitation. PERICARDIUM: No evidence of pericardial effusion. IVC: Not well visualized. CONCLUSION: 1. Global left ventricular systolic function is difficult to assess but appears preserved; visually estimated ejection fraction is 60% 2. Poorly seen right ventricle; appears normal in size and systolic function 3. Normal diastolic function 4. Valves are poorly seen; no significant valvular abnormalities Adult Echocardiography Procedure Report Left Ventricle LVEDD (3.7 - 5.6 cm): 4.94 cm LVESD (2.2 - 4.0 cm): 3.66 cm LVIVS thickness (0.6 - 1.2 cm): 0.95 cm LVPW thickness (0.5 - 1.0 cm): 0.86 cm e': 0.10 m/s E - e': 4.85 LVOT Max Gradient: 2.36 mm[Hg] LVOT Area (cm2): 0.77 m/s Peak Velocity (LVOT): 0.77 m/s Mean Velocity (LVOT): 0.51 m/s LVOT Diameter 2.40 cm Left Atrium Left Atrium Systolic Dimension: 3.63 cm Mitral Valve MV E to A Ratio: 0.59 Mitral Valve A-Wave Peak Velocity: 0.81 m/s Mitral Valve E-Wave Peak Velocity: 0.47 m/s Right Ventricle Aorta AO Root Diam: 3.15 cm Ascending Ao Diam: 3.45 cm Aortic Valve AoV Area (Peak Himanshu): 3.61 cm2, 3.61 cm2 AoV Area (VTI): 4.00 cm2, 4.00 cm2 Peak Velocity(Antegrade Flow): 0.96 m/s Peak Gradient(Antegrade Flow): 3.66 mm[Hg] Mean Velocity(Antegrade Flow): 0.67 m/s Mean Gradient(Antegrade Flow): 2.00 mm[Hg] Velocity Time Integral: 18.78 cm Tricuspid Valve Pulmonic Valve Peak Velocity: 0.62 m/s Peak Gradient: 1.56 mm[Hg] Right Atrium Dictated by: Savana Melo M.D. on 06/21/2023 at 16:02 Approved by: Savana Melo M.D. on 06/21/2023 at 16:07
[2023-06-21] MEDS: APIXABAN 5 MG TABLET 10 MG PO ×2 (14:10→22:04)
[2023-06-21] MEDS: LEVOFLOXACIN IN DEXTROSE 5 % 750 MG/150 ML IV.SOLN 100 MG IV (20:29)
[2023-06-22] VITALS (32 sets, daily range): BP systolic 103–149; BP diastolic 62–97; PULSE 67–104; TEMP 36.4–36.9; O2SAT 89–106
[2023-06-22] MEDS: 0.9 % SODIUM CHLORIDE 1,000 ML 200 ML IV ×2 (00:08→05:09)
[2023-06-22 05:06] LABS: Basophils Percent Auto 0.1 % (0.2-2.0); Hematocrit 41.5 % (42.0-54.0); Hemoglobin 13.9 g/dL (14.0-18.0); Immature Granulocytes Abs Auto 0.13 10^3/uL (0.00-0.03); Lymphocytes Absolute Auto 0.9 10^3/uL (1.2-3.8); Lymphocytes Percent Auto 6.4 % (20.5-60.0); Mean Corpuscular HGB Conc 33.5 g/dL (29.9-35.2); Mean Corpuscular Hemoglobin 29.3 pg (25.9-34.0); Mean Corpuscular Volume 87.4 fL (80.0-94.0); Mean Platelet Volume 9.9 fL (9.5-13.5); Monocytes Absolute Auto 0.9 10^3/uL (0.3-0.8); Monocytes Percent Auto 6.7 % (1.7-12.0); Neutrophils Absolute Auto 11.7 10^3/uL (1.4-6.5); Neutrophils Percent Auto 85.8 % (43.0-75.0); Platelet Count 221 10^3/uL (150-450); Red Blood Count 4.75 10^6/uL (4.70-6.10); Red Cell Distribution Width 13.2 % (11.0-15.0); White Blood Count 13.7 10^3/uL (4.0-11.0)
[2023-06-22 05:24] LABS: Alanine Aminotransferase 17 U/L (16-63); Albumin Globulin Ratio 0.6; Albumin Level 2.2 g/dL (3.4-5.0); Alkaline Phosphatase 65 U/L (46-116); Anion Gap 14.3; Aspartate Amino Transferase 25 U/L (15-37); BUN Creatinine Ratio 23.5; Bilirubin Total 0.6 mg/dL (0.2-1.0); Calcium 8.1 mg/dL (8.5-10.1); Carbon Dioxide 18.7 mmol/L (21.0-32.0); Chloride 112 mmol/L (98-107); Estimated GFR (African America >60 (>=60); Estimated GFR (Non-African Ame 52 (>=60); Globulin 3.8 g/dL; Glucose 231 mg/dL (74-106); Sodium 142 mmol/L (136-145)
[2023-06-22] MEDS: LEVOTHYROXINE SODIUM 100 MCG TABLET PO (06:43)
[2023-06-22] MEDS: APIXABAN 5 MG TABLET 10 MG PO ×2 (08:29→21:10)
--- NOTE | 2023-06-22 09:25 | PM.PN ---
Progress Note: Subjective Subjective Interval history: Patient has been off the bear hugger now for 12 hours. Maintaining core temp 97. Patient with hypoxia and was placed on [place] oxygen yesterday. Echo was good. He says overall feels better today, still weak but no fevers, chills or sweats today. Exam Narrative Exam Narrative: General: Patient is alert, and oriented to person, place and time with normal affect, proper hygiene Skin: no visible rashes, or ulcers, skin pallor Head: atraumatic, acephalic Eyes: PERRLA, no nystagmus present, conjunctiva clear, no scleral icterus Ears: normal gross auditory acuity Heart: Normal rate and rhythm, no murmurs/rubs/gallops Lungs: audible wheezes, no crackles Abdomen: Normal audible bowel sounds, no distension, No palpable masses, no organomegaly, no rebound/guarding/ or rigidity Musculoskeletal: no swelling bilateral lower extremities Neuro: CN II-X grossly intact Constitutional Vital Signs, click to edit/add: Last Vital Signs Temp 97.6 F 06/22/23 08:30 Pulse 76 06/22/23 08:30 Resp 26 H 06/22/23 08:30 BP 149/97 H 06/22/23 08:00 Pulse Ox 95 06/22/23 08:30 O2 Del Method Nasal Cannula 06/22/23 04:29 O2 Flow Rate 4 06/22/23 06:30 Progress Note: Objective Labs Labs: Short CBC 06/22/23 Range/Units 04:40 WBC 13.7 H (4.0-11.0) 10^3/uL Hgb 13.9 L (14.0-18.0) g/dL Hct 41.5 L (42.0-54.0) % Plt Count 221 (150-450) 10^3/uL BMP 06/22/23 04:40 Sodium 142 Potassium 3.0 L Chloride 112 H Carbon Dioxide 18.7 L BUN 32.0 H Creatinine 1.36 H Glucose 231 H Calcium 8.1 L Liver Function 06/22/23 Range/Units 04:40 Total Bilirubin 0.6 (0.2-1.0) mg/dL AST 25 (15-37) U/L ALT 17 (16-63) U/L Alkaline Phosphatase 65 (46-116) U/L Albumin 2.2 L (3.4-5.0) g/dL Urine 06/20/ Range/Units 10:20 Urine Color Dk. yellow (YELLOW) Urine Clarity Clear (CLEAR) Urine pH 6.0 (5.0-9.0) Ur Specific [place] >=1.030 A (1.005-1.025) Urine Protein 100 A (NEG/TRACE) mg/dL Urine Glucose (UA) Negative (NEGATIVE) mg/dL Progress Note: A&P Assessment and Plan (1) Pneumonia: Assessment and Plan: Blood cultures pending. as seen on chest X-ray, hypoxia, continue levaquin. Viral panel negative. Qualifiers: Laterality: right Lung location: unspecified part of lung Pneumonia type: due to unspecified organism Qualified Code(s): J18.9 - Pneumonia, unspecified organism (2) Pulmonary embolism on left: Assessment and Plan: diagnosed with positive ddimer and CTA of the chest. started on therapeutic Eliquis 10mg BID. Will need hypercoagulable work up as outpatient, no promoting/known family history, or history of cancers. Most likely provoked in the setting of severe sepsis. (3) Acute respiratory failure with hypoxia: Assessment and Plan: from #1 and #2, improving. add scheduled duonebs today, scheduled pulmicort, and OPEP (4) Hypothermia: Assessment and Plan: resolved. Qualifiers: Encounter type: initial encounter Qualified Code(s): T68.XXXA - Hypothermia, initial encounter (5) Hypothyroidism: Assessment and Plan: continue levothyroxine, normal TFT's Qualifiers: Hypothyroidism type: acquired Qualified Code(s): E03.9 - Hypothyroidism, unspecified (6) JOE (acute kidney injury): Assessment and Plan: improving with IVF, stopped fluids today. (7) Severe sepsis: Assessment and Plan: resolved. Plan Patient is a full code continue eliquis. Hopeful discharge in the 1-2 days given hypoxia, active PE and active pneumonia still concern for decompensation. Once discharged will need close follow up with PCP and referral to hem/onc for hypercoag work up.
[2023-06-22] MEDS: POTASSIUM CHLORIDE 10 MEQ ER TABLET 20 MEQ PO ×2 (10:30→21:11)
[2023-06-22] MEDS: GUAIFENESIN 600 MG TAB.ER.12H PO ×2 (10:30→21:11)
[2023-06-22] MEDS: BUDESONIDE 0.5 MG/2 ML AMPULE NEB IH ×2 (11:33→23:59)
[2023-06-22] MEDS: IPRATROPIUM/ALBUTEROL SULFATE 3 ML AMPUL.NEB IH ×3 (11:33→23:59)
--- NOTE | 2023-06-22 11:59 | CM.NOTE ---
Rounds made with Dr. Mccracken, pt verbalizes feeling better today. Dr. Mccracken discussed with patient plan of care moving forward, no discharge today and increase activity. Pt will also start Pep therapy today.
--- NOTE | 2023-06-22 12:40 | CM.NOTE ---
Pt and concerned regarding pt's job and [facility] paperwork to be completed. Talked with pt and , they have received [facility] paperwork. Directed to take paperwork to his family doctor, Dr. Field to complete and fax back to pt's place of employment ([employer]). Attempted to contact HR at [employer] per pt and request, went to voicemail and mailbox is full. Pt's states she has attempted to contact [employer] [facility] [employer] [facility] also and unable to leave message.
[2023-06-22] MEDS: LEVOFLOXACIN IN DEXTROSE 5 % 750 MG/150 ML IV.SOLN 100 MG IV (21:10)
[2023-06-23] VITALS (33 sets, daily range): BP systolic 106–147; BP diastolic 63–103; PULSE 78–110; TEMP 35.9–36.6; O2SAT 75–95
[2023-06-23 04:43] LABS: Basophils Percent Auto 0.2 % (0.2-2.0); Hematocrit 35.5 % (42.0-54.0); Hemoglobin 11.9 g/dL (14.0-18.0); Immature Granulocytes Pct Auto 1.1 % (0.0-0.5); Lymphocytes Absolute Auto 1.3 10^3/uL (1.2-3.8); Lymphocytes Percent Auto 14.4 % (20.5-60.0); Mean Corpuscular HGB Conc 33.5 g/dL (29.9-35.2); Mean Corpuscular Hemoglobin 29.2 pg (25.9-34.0); Mean Corpuscular Volume 87.2 fL (80.0-94.0); Mean Platelet Volume 10.2 fL (9.5-13.5); Monocytes Absolute Auto 1.1 10^3/uL (0.3-0.8); Monocytes Percent Auto 12.3 % (1.7-12.0); Neutrophils Absolute Auto 6.7 10^3/uL (1.4-6.5); Platelet Count 261 10^3/uL (150-450); Red Blood Count 4.07 10^6/uL (4.70-6.10); Red Cell Distribution Width 13.7 % (11.0-15.0); White Blood Count 9.3 10^3/uL (4.0-11.0)
[2023-06-23 05:01] LABS: Alanine Aminotransferase 18 U/L (16-63); Albumin Globulin Ratio 0.7; Albumin Level 2.1 g/dL (3.4-5.0); Alkaline Phosphatase 51 U/L (46-116); Anion Gap 14.9; Aspartate Amino Transferase 19 U/L (15-37); BUN Creatinine Ratio 21.8; Bilirubin Total 0.3 mg/dL (0.2-1.0); Carbon Dioxide 21.8 mmol/L (21.0-32.0); Chloride 107 mmol/L (98-107); Estimated GFR (African America >60 (>=60); Estimated GFR (Non-African Ame 53 (>=60); Globulin 3.2 g/dL; Glucose 238 mg/dL (74-106); Sodium 141 mmol/L (136-145); Total Protein 5.3 g/dL (6.4-8.2)
[2023-06-23 05:30] LABS: Potassium 2.7 mmol/L (3.5-5.1)
[2023-06-23] MEDS: IPRATROPIUM/ALBUTEROL SULFATE 3 ML AMPUL.NEB IH ×4 (05:56→23:03)
[2023-06-23] MEDS: LEVOTHYROXINE SODIUM 100 MCG TABLET PO (06:08)
[2023-06-23] MEDS: POTASSIUM CHLORIDE 40 MEQ in 0.9 % SODIUM CHLORIDE 250 ML 67.5 MEQ IV (07:39)
--- NOTE | 2023-06-23 09:21 | P.DS_ITS ---
DS: Providers Provider Date of admission: 06/20/23 22:25 Primary care physician: ARIANA MAGDALENO Consults: 06/21/23 Occupational Therapy Eval and Treat Routine Reason for consultation: weakness Physical Therapy Eval and Treat Routine Reason for consultation: weakness DS: Diagnosis Discharge Diagnosis (1) Pneumonia: Qualifiers: Laterality: right Lung location: unspecified part of lung Pneumonia type: due to unspecified organism Qualified Code(s): J18.9 - Pneumonia, unspecified organism (2) Pulmonary embolism on left: (3) Acute respiratory failure with hypoxia: (4) Hypothermia: Qualifiers: Encounter type: initial encounter Qualified Code(s): T68.XXXA - Hypothermia, initial encounter (5) Hypothyroidism: Qualifiers: Hypothyroidism type: acquired Qualified Code(s): E03.9 - Hypothyroidism, unspecified (6) JOE (acute kidney injury): (7) Severe sepsis: Plan (1) Pneumonia: Assessment and Plan: Blood cultures pending. as seen on chest X-ray, hypoxia, continue levaquin. Viral panel negative. Qualifiers: Laterality: right Lung location: unspecified part of lung Pneumonia type: due to unspecified organism Qualified Code(s): J18.9 - Pneumonia, unspecified organism (2) Pulmonary embolism on left: Assessment and Plan: diagnosed with positive ddimer and CTA of the chest. started on therapeutic Eliquis 10mg BID. Will need hypercoagulable work up as outpatient, no promoting/known family history, or history of cancers. Most likely provoked in the setting of severe sepsis. (3) Acute respiratory failure with hypoxia: Assessment and Plan: from #1 and #2, improving. add scheduled duonebs today, scheduled pulmicort, and OPEP (4) Hypothermia: Assessment and Plan: resolved. Qualifiers: Encounter type: initial encounter Qualified Code(s): T68.XXXA - Hypothermia, initial encounter (5) Hypothyroidism: Assessment and Plan: continue levothyroxine, normal TFT's Qualifiers: Hypothyroidism type: acquired Qualified Code(s): E03.9 - Hypothyroidism, unspecified (6) JOE (acute kidney injury): Assessment and Plan: improving with IVF, stopped fluids today. (7) Severe sepsis: Assessment and Plan: resolved. DS: Summary Hospital Course Hospital Course: [id number] evaluation for wheeled walker. Recommended by physical therapy based on their evaluation for strength and gait training. Likely needs outpatient physical therapy as well. Walker necessary for safe ambulation, getting to the bathroom, getting to the kitchen for food, outside ambulation as well. Time Spent with Patient Time attestation: Total time spent providing and/or coordinating discharge services: Time spent: greater than 30 minutes Exam Constitutional Vital Signs, click to edit/add: Last Vital Signs Temp 97.8 F 06/23/23 07:41 Pulse 92 H 06/23/23 08:00 Resp 24 H 06/23/23 07:41 BP 112/63 06/23/23 07:41 Pulse Ox 91 L 06/23/23 08:00 O2 Del Method Room Air 06/23/23 06:00 O2 Flow Rate 2 06/22/23 11:35 DS: Data Data Completed and Pending Labs on day of discharge: Labs from last 24 hours 06/23/23 03:52 WBC 9.3 RBC 4.07 L Hgb 11.9 L Hct 35.5 L MCV 87.2 MCH 29.2 MCHC 33.5 RDW 13.7 Plt Count 261 MPV 10.2 Neut % (Auto) 72.0 Lymph % (Auto) 14.4 L [place] % (Auto) 12.3 H Eos % (Auto) 0.0 L Baso % (Auto) 0.2 Neut # (Auto) 6.7 H Lymph # (Auto) 1.3 [place] # (Auto) 1.1 H Eos # (Auto) 0.0 Baso # (Auto) 0.0 Abs Immat Gran (auto) 0.10 H Imm/Tot Granulo (auto) 1.1 H Sodium 141 Potassium 2.7 L* Chloride 107 Carbon Dioxide 21.8 Anion Gap 14.9 BUN 29.0 H Creatinine 1.33 H Est GFR ( Amer) >60 Est GFR (Non-Af Amer) 53 L BUN/Creatinine Ratio 21.8 Glucose 238 H Calcium 8.0 L Total Bilirubin 0.3 AST 19 ALT 18 Alkaline Phosphatase 51 Total Protein 5.3 L Albumin 2.1 L Globulin 3.2 Albumin/Globulin Ratio 0.7 Preliminary micro results at discharge 06/20/23 19:41 - Preliminary Blood NO GROWTH AT 36-48 HOURS. FINAL TO FOLLOW. 06/20/23 19:30 Blood Culture Result 1 - Preliminary Blood NO GROWTH AT 36-48 HOURS. FINAL TO FOLLOW. Discharge Plan Discharge Disposition: Home, Self-Care Condition: Fair Discharge Medications: New benzonatate 100 mg Capsule 200 mg PO Q8H PRN (Reason: Cough) Qty: 20 1RF potassium chloride 10 mEq Tablet,Er Particles/Crystals 20 meq PO TID Qty: 40 0RF Eliquis 5 mg Tablet 10 mg PO BID Qty: 60 11RF Rx Instructions: 2 tabs bid for 5 days then 1 po BID levofloxacin 750 mg tablet 750 mg PO DAILY 10 Days Qty: 10 0RF Continued levothyroxine 100 mcg tablet 100 mcg PO .once daily Print Language: Citizen Of [place] Forms: Portal Instructions
[2023-06-23] MEDS: GUAIFENESIN 600 MG TAB.ER.12H PO ×2 (09:47→22:20)
[2023-06-23] MEDS: POTASSIUM CHLORIDE 10 MEQ ER TABLET 20 MEQ PO ×3 (09:48→22:21)
[2023-06-23] MEDS: APIXABAN 5 MG TABLET 10 MG PO ×2 (09:51→22:22)
--- NOTE | 2023-06-23 10:28 | P.PN_ITS ---
Progress Note: Subjective Subjective Interval history: Temperature down slightly overnight. But improved this morning. Patient states his breathing is overall improved. Does still seem to have some mild conversational dyspnea. Exam Constitutional Vital Signs, click to edit/add: Last Vital Signs Temp 97.8 F 06/23/23 07:41 Pulse 100 H 06/23/23 10:00 Resp 27 H 06/23/23 10:00 BP 112/63 06/23/23 07:41 Pulse Ox 93 L 06/23/23 10:00 O2 Del Method Room Air 06/23/23 06:00 O2 Flow Rate 2 06/22/23 11:35 Documenting provider has reviewed patient's vital signs: yes Common normals: apparent distress (Mild conversational dyspnea) Respiratory Common normals: no retractions and no use of accessory muscles; abnormal respiratory effort (Mild conversational dyspnea) and not clear to ascultation bilaterally (Right lower lobe bronchi) Cardio Common normals: regular rate and regular rhythm GI Common normals: Normal to inspection, nondistended, normoactive bowel sounds present Extremity Common normals: normal to inspection, full ROM and normal capillary refill Progress Note: Objective Labs Labs: Short CBC 06/23/23 Range/Units 03:52 WBC 9.3 (4.0-11.0) 10^3/uL Hgb 11.9 L (14.0-18.0) g/dL Hct 35.5 L (42.0-54.0) % Plt Count 261 (150-450) 10^3/uL BMP 06/23/23 03:52 Sodium 141 Potassium 2.7 L* Chloride 107 Carbon Dioxide 21.8 BUN 29.0 H Creatinine 1.33 H Glucose 238 H Calcium 8.0 L Liver Function 06/23/23 Range/Units 03:52 Total Bilirubin 0.3 (0.2-1.0) mg/dL AST 19 (15-37) U/L ALT 18 (16-63) U/L Alkaline Phosphatase 51 (46-116) U/L Albumin 2.1 L (3.4-5.0) g/dL Progress Note: A&P Assessment and Plan (1) Pneumonia: Qualifiers: Laterality: right Lung location: unspecified part of lung Pneumonia type: due to unspecified organism Qualified Code(s): J18.9 - Pneumonia, unspecified organism (2) Pulmonary embolism on left: (3) Acute respiratory failure with hypoxia: (4) Hypothermia: Qualifiers: Encounter type: initial encounter Qualified Code(s): T68.XXXA - Hypothermia, initial encounter (5) Hypothyroidism: Qualifiers: Hypothyroidism type: acquired Qualified Code(s): E03.9 - Hypothyroidism, unspecified (6) JOE (acute kidney injury): (7) Severe sepsis: Plan Community-acquired pneumonia: - RLL -still has some significant dyspnea with conversation. Will see how he does with ambulation. Patient highly motivated for returning to home just not sure his strength and shortness of breath would warrant that today. Pulmonary embolism on left: Continue with Eliquis Acute respiratory failure with hypoxia: Improving-back to baseline of supplemental oxygen is being off Hypothermia: Likely related to the pneumonia as outlined above. Was a little bit low overnight but has improved this morning. Hypothyroidism: Continue with supplementation JOE (acute kidney injury): Continues to improve Severe sepsis: With overall state resolving with white blood cell count improving, still hypothermia overnight but is improved this morning. Moderate protein calorie malnutrition-continue supplementation Iron deficiency anemia-continue to monitor is down somewhat today Hypokalemia-increase supplementation Severe hyperglycemia may be related to current treatment plan, higher yesterday. Improved this morning. Continue to monitor Admission status: Community-acquired pneumonia, medically necessary treatment spanning 2 midnights secondary to all of the diagnoses as outlined above. Inpatient status
--- NOTE | 2023-06-23 10:49 | PT.DAILY ---
Physical Therapy Daily Note PT Daily Note/Assess Start: 06/23/23 10:41 Freq: Status: Active Protocol: Document 06/23/23 09:50 SILVESTRE (Rec: 06/23/23 10:49 [id number]) Physical Therapy Daily Note/Assessment Time In/Time Out Time In 09:50 Time Out 10:15 Subjective Subjective Patient reports feeling much better. Eager to work with PT today. Per nursing to ambulate without O2 and to check SPO2 pre and post gait. Therapeutic Activity Time Therapeutic Activity Minutes (minutes) 10 Therapeutic Activity Units 1 Therapeutic Activity Treatment Bed Mobility Ability Modified Independent Chair Transfer Ability Modified Independent Therapeutic Activity Comments SPO2 pre gait 96 percent. Gait 150' with RW SBA with assist for IV follow. Verbal cues to slow gabriel, and energy conservation. Patient verbalizes understanding. SPO2 post gait 93 percent. Neuromuscular Reeducation Neuromuscular Reeducation Minutes ( 15 minutes) Neuromuscular Reeducation Units 1 Neuromuscular Reeducation Static and dynamic balance training x 15 min using Modified Rhomberg, Rhomberg, Tandem stance, and initiating standing CC exercises. Patient demonstrates fair plus balance. Total Physical Therapy Time Total Therapy Minutes 25 Total Physical Therapy Units 2 Summary Daily Note Summary Improved ability with gait and standing tolerance today. At this time PT recommends patient using RW at home due to decreased balance, and for energy conservation with gait. Also would recommend OP PT or HH PT depending on patient's medical status and endurance at time of DC. Patient would like to RTW multimedia specialist, and due to balance issues would benefit from additional therapy.
[2023-06-23] MEDS: BUDESONIDE 0.5 MG/2 ML AMPULE NEB IH ×2 (11:42→23:03)
[2023-06-23 12:46] LABS: Anion Gap 16.6; BUN Creatinine Ratio 18.5; Calcium 8.6 mg/dL (8.5-10.1); Carbon Dioxide 20.8 mmol/L (21.0-32.0); Chloride 107 mmol/L (98-107); Estimated GFR (African America >60 (>=60); Estimated GFR (Non-African Ame 52 (>=60); Glucose 191 mg/dL (74-106); Potassium 3.4 mmol/L (3.5-5.1); Sodium 141 mmol/L (136-145)
[2023-06-23] MEDS: LEVOFLOXACIN IN DEXTROSE 5 % 750 MG/150 ML IV.SOLN 100 MG IV (22:20)
[2023-06-24] VITALS (7 sets, daily range): BP systolic 134–155; BP diastolic 96–103; PULSE 91–110; TEMP 36.3–37.2; O2SAT 90–95
[2023-06-24] MEDS: IPRATROPIUM/ALBUTEROL SULFATE 3 ML AMPUL.NEB IH (04:49)
[2023-06-24] MEDS: POTASSIUM CHLORIDE 10 MEQ ER TABLET 20 MEQ PO (05:38)
[2023-06-24] MEDS: LEVOTHYROXINE SODIUM 100 MCG TABLET PO (05:39)
[2023-06-24 05:41] LABS: Alanine Aminotransferase 26 U/L (16-63); Albumin Globulin Ratio 0.7; Albumin Level 2.4 g/dL (3.4-5.0); Alkaline Phosphatase 58 U/L (46-116); Aspartate Amino Transferase 35 U/L (15-37); BUN Creatinine Ratio 11.6; Bilirubin Total 0.5 mg/dL (0.2-1.0); Calcium 8.8 mg/dL (8.5-10.1); Carbon Dioxide 23.7 mmol/L (21.0-32.0); Chloride 107 mmol/L (98-107); Estimated GFR (African America >60 (>=60); Estimated GFR (Non-African Ame 59 (>=60); Globulin 3.5 g/dL; Glucose 115 mg/dL (74-106); Potassium 3.7 mmol/L (3.5-5.1); Sodium 141 mmol/L (136-145); Total Protein 5.9 g/dL (6.4-8.2)
[2023-06-24 05:44] LABS: Basophils Percent Auto 0.4 % (0.2-2.0); Eosinophils Absolute Auto 0.1 10^3/uL (0.0-0.7); Eosinophils Percent Auto 1.9 % (0.9-7.0); Hematocrit 37.7 % (42.0-54.0); Hemoglobin 12.8 g/dL (14.0-18.0); Immature Granulocytes Abs Auto 0.25 10^3/uL (0.00-0.03); Immature Granulocytes Pct Auto 3.3 % (0.0-0.5); Lymphocytes Absolute Auto 1.3 10^3/uL (1.2-3.8); Lymphocytes Percent Auto 16.7 % (20.5-60.0); Mean Corpuscular Volume 88.5 fL (80.0-94.0); Mean Platelet Volume 9.6 fL (9.5-13.5); Monocytes Absolute Auto 1.3 10^3/uL (0.3-0.8); Monocytes Percent Auto 16.8 % (1.7-12.0); Neutrophils Absolute Auto 4.6 10^3/uL (1.4-6.5); Neutrophils Percent Auto 60.9 % (43.0-75.0); Platelet Count 348 10^3/uL (150-450); Red Blood Count 4.26 10^6/uL (4.70-6.10); Red Cell Distribution Width 14.1 % (11.0-15.0); White Blood Count 7.6 10^3/uL (4.0-11.0)
[2023-06-24] MEDS: APIXABAN 5 MG TABLET 10 MG PO (08:31)
--- NOTE | 2023-06-24 09:36 | P.DS_ITS ---
DS: Providers Provider Date of admission: 06/20/23 22:25 Primary care physician: ARIANA FIELD Consults: 06/21/23 Occupational Therapy Eval and Treat Routine Reason for consultation: weakness Physical Therapy Eval and Treat Routine Reason for consultation: weakness DS: Diagnosis Discharge Diagnosis (1) Pneumonia: Qualifiers: Laterality: right Lung location: unspecified part of lung Pneumonia type: due to unspecified organism Qualified Code(s): J18.9 - Pneumonia, unspecified organism (2) Pulmonary embolism on left: (3) Acute respiratory failure with hypoxia: (4) Hypothermia: Qualifiers: Encounter type: initial encounter Qualified Code(s): T68.XXXA - Hypothermia, initial encounter (5) Hypothyroidism: Qualifiers: Hypothyroidism type: acquired Qualified Code(s): E03.9 - Hypothyroidism, unspecified (6) JOE (acute kidney injury): (7) Severe sepsis: Plan (1) Pneumonia: Qualifiers: Laterality: right Lung location: unspecified part of lung Pneumonia type: due to unspecified organism Qualified Code(s): J18.9 - Pneumonia, unspecified organism - Improving at time of discharge (2) Pulmonary embolism on left: Improving at time of discharge (3) Acute respiratory failure with hypoxia: Improving at time of discharge (4) Hypothermia: Qualifiers: Encounter type: initial encounter Qualified Code(s): T68.XXXA - Hypothermia, initial encounter-resolved at discharge (5) Hypothyroidism: Qualifiers: Hypothyroidism type: acquired Qualified Code(s): E03.9 - Hypothyroidism, unspecified -stable discharge (6) JOE (acute kidney injury): Improving at time of discharge (7) Severe sepsis: Resolved at discharge Plan Community-acquired pneumonia: - RLL - improving at the time of discharge Pulmonary embolism on left: Continue with Eliquis - improving at the time of discharge Acute respiratory failure with hypoxia: - improving at the time of discharge Hypothermia: Likely related to the pneumonia as outlined above. - improving at the time of discharge Hypothyroidism: Continue with supplementation JOE (acute kidney injury): Continues to improve Severe sepsis: - improving at the time of discharge Moderate protein calorie malnutrition-continue supplementation Iron deficiency anemia-continue to monitor is down somewhat today Hypokalemia- - improving at the time of discharge Severe hyperglycemia may be related to current treatment plan, higher yesterday. - improving at the time of discharge Admission status: Community-acquired pneumonia, medically necessary treatment spanning 2 midnights secondary to all of the diagnoses as outlined above. Inpatient status ? DS: Summary Hospital Course Hospital Course: Patient admitted with increasing cough and shortness of breath. In the emergency room found to have right-sided pneumonia, also left pulmonary embolism. Uncertain source. No signs of DVT, echocardiogram was normal. Patient was placed on Eliquis for the pulmonary embolism placed on antibiotics and aerosol treatments for the pneumonia. Also had issues with elevated kidney function, that was improving at the time of discharge. Also had significant hypokalemia. This required aggressive supplementation to improve. Today his potassium is back to baseline. His kidney function is overall improving. He still has dyspnea with ambulation but with right-sided pneumonia and left-sided pulmonary embolism that would be expected. He has been off supplemental oxygen including overnight. At this point he is medically stable for discharge. Continue with medications as listed above. Follow-up with PCP later this week. [id number] evaluation for wheeled walker. Recommended by physical therapy based on their evaluation for strength and gait training. Likely needs outpatient physical therapy as well. Walker necessary for safe ambulation, getting to the bathroom, getting to the kitchen for food, outside ambulation as well. Time Spent with Patient Time attestation: Total time spent providing and/or coordinating discharge services: Time spent: greater than 30 minutes Exam Constitutional Vital Signs, click to edit/add: Last Vital Signs Temp 97.7 F 06/24/23 07:52 Pulse 102 H 06/24/23 07:54 Resp 22 H 06/24/23 07:52 BP 155/103 H 06/24/23 07:52 Pulse Ox 92 L 06/24/23 07:54 O2 Del Method Room Air 06/24/23 07:52 O2 Flow Rate 2 06/22/23 11:35 Documenting provider has reviewed patient's vital signs: yes Common normals: apparent distress (Mild conversational dyspnea) Respiratory Common normals: no retractions and no use of accessory muscles; abnormal respiratory effort (Mild conversational dyspnea) and not clear to ascultation bilaterally (Right lower lobe bronchi) Cardio Common normals: regular rate and regular rhythm GI Common normals: Normal to inspection, nondistended, normoactive bowel sounds present Extremity Common normals: normal to inspection, full ROM and normal capillary refill DS: Data Data Completed and Pending Labs on day of discharge: Labs from last 24 hours 06/24/23 06/23/23 04:18 12:30 WBC 7.6 RBC 4.26 L Hgb 12.8 L Hct 37.7 L MCV 88.5 MCH 30.0 MCHC 34.0 RDW 14.1 Plt Count 348 MPV 9.6 Neut % (Auto) 60.9 Lymph % (Auto) 16.7 L Clinch % (Auto) 16.8 H Eos % (Auto) 1.9 Baso % (Auto) 0.4 Neut # (Auto) 4.6 Lymph # (Auto) 1.3 Clinch # (Auto) 1.3 H Eos # (Auto) 0.1 Baso # (Auto) 0.0 Abs Immat Gran (auto) 0.25 H Imm/Tot Granulo (auto) 3.3 H Sodium 141 141 Potassium 3.7 3.4 L Chloride 107 107 Carbon Dioxide 23.7 20.8 L Anion Gap 14.0 16.6 BUN 14.0 25.0 H Creatinine 1.21 1.35 H Est GFR ( Amer) >60 >60 Est GFR (Non-Af Amer) 59 L 52 L BUN/Creatinine Ratio 11.6 18.5 Glucose 115 H 191 H Calcium 8.8 8.6 Total Bilirubin 0.5 AST 35 ALT 26 Alkaline Phosphatase 58 Total Protein 5.9 L Albumin 2.4 L Globulin 3.5 Albumin/Globulin Ratio 0.7 Preliminary micro results at discharge 06/20/23 19:41 - Preliminary Blood NO GROWTH AT 36-48 HOURS. FINAL TO FOLLOW. 06/20/23 19:30 Blood Culture Result 1 - Preliminary Blood NO GROWTH AT 36-48 HOURS. FINAL TO FOLLOW. Discharge Plan Discharge Disposition: Home, Self-Care Condition: Fair Discharge Medications: New benzonatate 100 mg Capsule 200 mg PO Q8H PRN (Reason: Cough) Qty: 20 1RF potassium chloride 10 mEq Tablet,Er Particles/Crystals 20 meq PO TID Qty: 40 0RF Eliquis 5 mg Tablet 10 mg PO BID Qty: 60 11RF Rx Instructions: 2 tabs bid for 5 days then 1 po BID levofloxacin 750 mg tablet 750 mg PO DAILY 10 Days Qty: 10 0RF ([place] [facility] [place] .Route Qty: 1 0RF Rx Instructions: As directed -0 F2F completed on 06/22 for safe ambulation Continued levothyroxine 100 mcg tablet 100 mcg PO .once daily Activity: resume usual activities as tolerated Print Language: Georgian Patient Instructions: Benzonatate (By mouth) (Alan Lugo), Potassium Chloride (By mouth), Levofloxacin (By mouth) (Levaquin, Levaquin Leva- morena), Apixaban (By mouth) (Eliquis), Pulmonary Embolism (DC), Blood Thinners (DC) Forms: Portal Instructions Follow Up Appointments: Call Dr Field office on Sunday to schedule follow up appointment. [phone] Discharge Date/Time: 06/24/23 09:32
--- NOTE | 2023-06-25 10:55 | CM.DCFOLLOWU ---
Person spoke with: patient's How are you feeling? tired, but not bad How is your pain? none Did you understand your discharge instructions? yes Do you have any questions about your discharge instructions? no Were you given any prescriptions at discharge? yes Were you able to get your prescriptions filled? yes except for the Eliquis, it will be in today Do you understand how to take your medications as ordered? yes Do you have any questions about your follow up appointment and do you plan to keep your follow up appointment? no questions, has follow up scheduled for Is there anything else that you would like to discuss? no Questions/Comments/Concerns/Other: N/A
--- NOTE | 2023-06-25 11:36 | SWNOTE1 ---
SW received call from [facility] and they received a script for walker, but need the face sheet and documentation. SW sent over face sheet and doctor's dc summary with face to face documentation.
== END 2023-06-24 09:32 | disposition home or self-care (01) | DRG 871 ==
LOC: ER 21:53 → MS 22:30 → ICU 06-21 06:46
PROVIDERS: Nurse Practitioner Acute Care; Admitting Provider Family Medicine; Emergency Provider Emergency Medicine; PCP Family Medicine; Visit Provider Family Medicine
DX: B37.7 Candidal sepsis (principal); I26.99 Other pulmonary embolism without acute cor pulmonale; J18.9 Pneumonia, unspecified organism; J96.01 Acute respiratory failure with hypoxia; N17.9 Acute kidney failure, unspecified; E44.0 Moderate protein-calorie malnutrition; R65.20 Severe sepsis without septic shock; E03.9 Hypothyroidism, unspecified; R31.29 Other microscopic hematuria; E87.6 Hypokalemia; D50.9 Iron deficiency anemia, unspecified; R73.9 Hyperglycemia, unspecified; R68.0 Hypothermia, not associated with low environmental temperature; Z79.890 Hormone replacement therapy; Z20.822 Contact with and (suspected) exposure to COVID-19; Z68.27 Body mass index [BMI] 27.0-27.9, adult
CPT/HCPCS: 0202U; 36415; 51798; 70450; 71046; 71275; 74160; 80048; 80053; 81001; 83605; 83880; 84145; 84443; 84484; 85025; 85378; 85610; 85730; 87040; 87070; 87106; 87205; 93005; 93306; 94640; 94667; 94668; 94761; 96365; 96366; 96367; 96375; 96376; 97112; 97161; 97165; 97530; 99285; J2919; J3480; Q9967

== ENCOUNTER 2023-07-23 09:43 | Emergency (ER) | payer BC, MEDICARE, SELFPAY ==
[2023-07-23 09:47] VITALS: BP 178/102; PULSE 81; TEMP 36.8; O2SAT 97; BMI 26.3
--- OUTSIDE RECORDS SUMMARY | 2023-07-23 09:51 | XMS_ITS ---
Patient Summarization (C-CDA 2.1 CCD) Created on: July 23, 2023 CALDWELLTRICIA : 1955 Sex: Male Author Organization Sample organization Care Team Providers Care Trades Helper Name Role Phone JESSICA SUH Unavailable Unavailable MICHAEL ROCHA Attending Unavailable MICHAEL ROCHA Attending Unavailable Allergies Allergy Classification Reported Allergen(s) Allergy Type Date of Onset Reaction(s) Facility (1 source) Aspirin Drug Allergy [address] [facility] (1 source) Latex Allergy to substance [address] [facility] (1 source) pencillin Allergy to substance [address] [facility] Encounters Encounter Date Encounter Type Care Provider Facility Start: 07-19-2023 End: 07-19-2023 ambulatory MICHAEL ROCHA Not Available Start: 06-28-2023 End: 06-28-2023 ambulatory MICHAEL ROCHA Not Available Start: 06-17-2023 End: 06-17-2023 ambulatory [facility] Work Phone: Start: 06-17-2023 End: 06-17-2023 Patient encounter procedure [facility]ly [facility] Work Phone: Start: 03-29-2017 End: 03-29-2017 Ambulatory JESSICA SUH [facility] Medications Current Medications Medication Drug Class(es) Dates Sig (Normalized) Sig (Original) cholecalciferol 0.025 mg oral tablet (1 source) Vitamin D Start: 06-17-2023 take 25 ug by mouth once daily Cholecalciferol (Vitamin D3) Active 25 MCG PO Daily June 17, 2023 12:00am levothyroxine sodium 0.1 mg oral tablet (1 source) l-Thyroxine Start: 06-17-2023 take 100 ug by mouth once daily Levothyroxine Active 100 MCG PO Daily June 17, 2023 12:00am [place] 7-Cdv-Kjm-Fish Oil (Fish Oil) 100-160-1,000 mg capsule (1 source) Start: 06-17-2023 [place] 7-Ned-Uct-Fish Oil (Fish Oil) 100-160-1,000 mg capsule Active CAP PO June 17, 2023 12:00am Payers Date Payer Category Payer Unknown [id number] 1955 Unknown [id number] 1955 Unknown [id number] Plan of Treatment Date Care Activity Detail Author [facility] Problems Problem Classification Problem Date Documented Da te Episodic/Chronic Unclassified (1 source) Unknown / UNK(Unknown) Onset: 03-29-2017 Results Test Name Value Interpretation Reference Range Facility OV 03-29-2017 [facility] Office Visit (ENDOAV) ----TRICIA CALDWELL ([id number]) 1955 MDate Time Provider Department03/29/17 11:20 AM JESSICA SUH ENDOAV During your visit today, we recorded the following information about you: Pulse Respiration Blood pressure Weight 77/minute 16/minute 130/92 99.2 kg Height 1.88 Alfredo Suh MD 03/29/2017 11:40 AM SignedSelf referralHISTORY OF PRESENT ILLNESS:Tricia Caldwell is here for evaluation of hypothyroidism. He was diagnosedapproximately 8 years ago and has been on levothyroxine since that time. Hewas on name brand synthroid for a period of time. He did feel more energeticwith name brand synthroid but switched due to cost. He had routine blood workfor a physical in 09/2016 and was noted to have mildly elevated TSH. He wasgenerally feeling well at the time. He denies any recent illness around thattime frame.He does have family history of thyroid disease mother and brother. He thinksthey have hypothyroidism. He continues to feel well.He has repeat blood work in 01/2017 and TSH was in normal range at 3.59.He takes his levothyroxine first thing in the morning by itself with water andwaits at least 30 minutes before eating. He is not taking any othermedications or supplements. He currently feels well.Eye symptoms: No blurred or double visionDysphagia: NoNew neck lump: NoVoice change: NoDyspnea: NoCough: NoPalpitations: NoTremor: NoHeat intolerance: NoCold intolerance: NoWeight change: StableChange in bowel movements: NoHistory of ionizing radiation: NoFamily history of thyroid cancer: NoPAST MEDICAL HISTORYDiagnosis Date- HypothyroidismFAMILY HISTORYProblem Relation Age of Onset- Thyroid Mother Hypothyroidism- Thyroid Brother- Hypertension Brother- sleep apnea [OTHER] BrotherSocial HistorySubstance Use Topics- Smoking status: Never Smoker- Smokeless tobacco: Never Used- Alcohol use Not on fileREVIEW OF SYSTEMS:WEIGHT: StableEYES:No Blurring and DiplopiaHYDRATION: No polydypsia or thirstCARDIAC: No chest pain, dyspnea, palpitations or edemaGI: no nausea, fullness, vomiting, diarrhea, constipation, GI bleeding orheartburnGU:no dysuria, frequency, hesitancy, hematuria, polyuria or nocturiaLIBIDO: normalSEXUAL/REPRODUCTIVE: Denies EDSKIN: no rashes or changes in skin texture. He did have redness on both shinsfew months ago but resolved.MUSCULO-SKELETAL: No joint pain, stiffness, swelling, cramping or weaknessNERVOUS SYSTEM: no numbness, paresthesias, weakness, cramping, burning ordizzinessDEPRESSION: noPHYSICAL EXAM:BP 130/92 Pulse 77 Resp 16 Ht 6' 2ANDquot; (1.88m) Wt 218 lb 12.8 oz(99.2kg) BMI 28.08 kg/(m2).APPEARANCE: Well appearing, alert, in no acute distress, well-hydrated, wellnourished.EYES TREVOR, extra occular movements normalHENT:NCAT, OP clear, mmmNECK Supple, no adenopathy; thyroid symmetric, normal sizeTHYROID normal to inspection, palpation and auscultationHEART RRR with normal S1 and S2, no murmurs,LUNGS clear to auscultation, no resp distressABD bowel sounds normoactive, soft, non-tender, non-distended, no HSMEXTREMITIES No deformities and No edemaNEURO Awake, alert and oriented x 3, No involuntary motions. and ReflexessymmetricalSKIN Skin color, texture, turgor normal, no suspicious rashes or lesionsLABS AND IMAGIN09/03/14 TSH 2.27, ft4 0.868/ TSH 5. TSH 3.59IMPRESSION AND RECOMMENDATIONS:62 year old male with hypothyroidism. He is clinically and biochemicallyeuthyroid.-Cont inue current levothyroxine dose-Reviewed appropriate way to take levothyroxine-Recommend TSH annually or sooner if concerning symptoms-Follow up prnReferring Provider: SELF [200]Allergies As of Date: 03/29/2017 Noted Allergy ReactionASPIRIN 03/29/2017 7 - Swelling Comments: Throat and eyes swellPENICILLIN 03/29/2017 16 - UnknownLATEX 03/29/2017 2 - RashNEOMYCIN 03/29/2017 2 - RashDate Reviewed: 03/29/2017Reviewed by: Rodrigo Brunner MA - Fully AssessedReason for Visit: New Patient [172] Thyroid Problem [110]Primary Visit Diagnosis:Acquired hypothyroidism [E03.9]Prescriptions as of 03/29/2017 Sig: LEVOTHYROXINE 100 MCG TABLET take 1 tablet by mouth daily *Medication notes this encounter LEVOTHYROXINE 100 MCG TABLET >> Rodrigo Brunner MA 03/29/2017 11:00 AM >> RODRIGO BRUNNER MA Eryn Mar 29, 2017 11:00 AM Received from: External PharmacyProblem List As Of Date: 03/29/2017(None)Disposition: Return if symptoms worsen or fail to improve.Follow-up and Disposition History RecordedEncounter Number: [id number] Status:Closed by JESSICA SUH MD on 03/29/17 Normal [facility] PROGRESSon 03-29-2017 PROGRESS HNO ID: [id number] thor: Jessica Gabriel: (none)Author Type: PhysicianType: Progress NotesFiled: 03/29/2017 11:40 AMNote Text:Self referralHISTORY OF PRESENT ILLNESS:Tricia Caldwell is here for evaluation of hypothyroidism. He was diagnosedapproximately 8 years ago and has been on levothyroxine since that time.He was on name brand synthroid for a period of time. He did feel moreenergetic with name brand synthroid but switched due to cost. He hadroutine blood work for a physical in 09/2016 and was noted to have mildlyelevated TSH. He was generally feeling well at the time. He denies anyrecent illness around that time frame.He does have family history of thyroid disease mother and brother. Hethinks they have hypothyroidism. He continues to feel well.He has repeat blood work in 01/2017 and TSH was in normal range at 3.59.He takes his levothyroxine first thing in the morning by itself with waterand waits at least 30 minutes before eating. He is not taking any othermedications or supplements. He currently feels well.Eye symptoms: No blurred or double visionDysphagia: NoNew neck lump: NoVoice change: NoDyspnea: NoCough: NoPalpitations: NoTremor: NoHeat intolerance: NoCold intolerance: NoWeight change: StableChange in bowel movements: NoHistory of ionizing radiation: NoFamily history of thyroid cancer: NoPAST MEDICAL HISTORYDiagnosis Date- HypothyroidismFAMILY HISTORYProblem Relation Age of Onset- Thyroid Mother Hypothyroidism- Thyroid Brother- Hypertension Brother- sleep apnea [OTHER] BrotherSocial HistorySubstance Use Topics- Smoking status: Never Smoker- Smokeless tobacco: Never Used- Alcohol use Not on fileREVIEW OF SYSTEMS:WEIGHT: StableEYES:No Blurring and DiplopiaHYDRATION: No polydypsia or thirstCARDIAC: No chest pain, dyspnea, palpitations or edemaGI: no nausea, fullness, vomiting, diarrhea, constipation, GI bleeding orheartburnGU:no dysuria, frequency, hesitancy, hematuria, polyuria or nocturiaLIBIDO: normalSEXUAL/REPRODUCTIVE: Denies EDSKIN: no rashes or changes in skin texture. He did have redness on bothshins few months ago but resolved.MUSCULO-SKELETAL: No joint pain, stiffness, swelling, cramping or weaknessNERVOUS SYSTEM: no numbness, paresthesias, weakness, cramping, burning ordizzinessDEPRESSION: noPHYSICAL EXAM:BP 130/92 Pulse 77 Resp 16 Ht 6' 2 (1.88m) Wt 218 lb 12.8 oz(99.2kg) BMI 28.08 kg/(m2).APPEARANCE: Well appearing, alert, in no acute distress, well-hydrated,well nourished.EYES TREVOR, extra occular movements normalHENT:NCAT, OP clear, mmmNECK Supple, no adenopathy; thyroid symmetric, normal sizeTHYROID normal to inspection, palpation and auscultationHEART RRR with normal S1 and S2, no murmurs,LUNGS clear to auscultation, no resp distressABD bowel sounds normoactive, soft, non-tender, non-distended, no HSMEXTREMITIES No deformities and No edemaNEURO Awake, alert and oriented x 3, No involuntary motions. and ReflexessymmetricalSKIN Skin color, texture, turgor normal, no suspicious rashes or lesionsLABS AND IMAGIN09/03/14 TSH 2.27, ft4 0.868/ TSH 5. TSH 3.59IMPRESSION AND RECOMMENDATIONS:62 year old male with hypothyroidism. He is clinically and biochemicallyeuthyroid.-Cont inue current levothyroxine dose-Reviewed appropriate way to take levothyroxine-Recommend TSH annually or sooner if concerning symptoms-Follow up prn Normal [facility] Social History Date Type Detail Facility Start: 06-17-2023 Tobacco smoking stat us NHIS Never smoked tobacco (finding) [facility] Start: 1955 Sex Assigned At Male F [facility] Vital Signs Date Time Vital Sign Value Performing Clinician Facility 06-17-2023 12:07-0400 Body height 187.96 cm [facility] 06-17-2023 12:07-0400 Body mass index (BMI) [Ratio] 28.8 kg/m2 [facility] 06-17-2023 12:07-0400 Body temperature 100.7 [degF] [facility] 06-17-2023 12:07-0400 Body weight 102.05 kg [facility] 06-17-2023 12:07-0400 Heart rate 107 /min [facility] 06-17-2023 12:07-0400 Respiratory rate 18 /min [facility] 06-17-2023 12:07-0400 SaO2% (BldA) [Mass fraction] 95 % [facility] Evaluation note Note Date & Type Note Facility Evaluation note No assessment information availa ble [facility] Work Phone: Summary Purpose Family History No Family History Records FoundNo Family History Records Found Advance Directives No Advanced Directives Records Found Advance Directive Response Recorded Date/ Time Advance Directives No June 16 11:57am Chief Complaint and Reason for Visit Chief Complaint Cough, Congestion, F ever, Bodyache Additional Source Comments (unrecognized sect ion and content) No Status Records FoundNo Status Records Found INFORMATION SOURCE (unrecogn ized section and content) DATE CREATED AUTHOR 08/20/2017 [facility] DATE CREATED AUTHOR AUTHOR'S ORGANIZ ATION 07/21/2023 [facility] Care Teams (unrecognized sec tion and content) Team Status: Active Member Role Status Dates Víctor Field MD Primary Care Provider Active Team Status: Inactive Member Role Status Dates Carito Velasquez APRN Attending Provider Active Start: June 17, 2023 End: June 17, 2023 Vcítor Field MD Primary Care Provider Active S tart: June 17, 2023 End: June 17, 2023 Goals (unrecognized section and content) Goals may be documented in a n alternate section FOR RECORDS PERTAINING TO PATIENTS WHO ARE OR HAVE BEEN ENROLLED IN A CHEMICAL DEPENDENCY/SUBSTANCEABUSE PROGRAM, SOME INFORMATION MAY BE OMITTED. This clinical summary was aggregated from multiple sources. Caution should be exercised in using it in the provision of clinical care. This summary normalizes information from multiple sources, and as a consequence, information in this document may materially change the coding, format and clinical context of patient data. In addition, data may be omitted in some cases. CLINICAL DECISIONS SHOULD BE BASED ON THE PRIMARY CLINICAL RECORDS. [facility] provides no warranty or guarantee of the accuracy or completeness of information in this document.
[2023-07-23 10:46] LABS: Alanine Aminotransferase 18 U/L (16-63); Albumin Globulin Ratio 0.9; Albumin Level 3.3 g/dL (3.4-5.0); Alkaline Phosphatase 81 U/L (46-116); Anion Gap 8.7; Aspartate Amino Transferase 17 U/L (15-37); BUN Creatinine Ratio 11.4; Bilirubin Total 0.7 mg/dL (0.2-1.0); Calcium 8.7 mg/dL (8.5-10.1); Carbon Dioxide 32.3 mmol/L (21.0-32.0); Chloride 103 mmol/L (98-107); Estimated GFR (African America >60 (>=60); Estimated GFR (Non-African Ame 54 (>=60); Globulin 3.6 g/dL; Glucose 105 mg/dL (74-106); Sodium 139 mmol/L (136-145); Total Protein 6.9 g/dL (6.4-8.2)
--- NOTE | 2023-07-23 11:00 | ED_ITS ---
HPI HPI - General Adult General Chief complaint: Urogenital-Male Stated complaint: blood in urine Time Seen by Provider: 07/23/23 09:48 Source: patient Mode of arrival: walk-in Limitations: no limitations History of Present Illness HPI narrative: Patient coming to the ER with 1 episode of hematuria that he noticed today when he woke up in the morning, he have no history of abdominal pain nausea vomiting or any back pain, patient recently was started on anticoagulation after he was diagnosed with a blood clot in his right upper extremity, the patient have no other complaints at the moment and he mentioned that after that the bleeding resolved Related Data Home Medications ?Medication ?Instructions ?Recorded ?Confirmed levothyroxine 100 mcg tablet 100 mcg PO .once daily 06/20/23 07/23/23 apixaban 5 mg tablet (Eliquis) 5 mg PO BID 07/23/23 07/23/23 Previous Rx's ?Medication ?Instructions ?Recorded benzonatate 100 mg capsule 200 mg (2 x 100 mg) PO Q8H PRN 06/23/23 Cough #20 caps levofloxacin 750 mg tablet 750 mg PO DAILY 10 days #10 tabs 06/23/23 potassium chloride 10 mEq 20 meq (2 x 10 mEq) PO TID #40 tabs 06/23/23 tablet,extended release(part/cryst) walker #1 ea 06/23/23 Allergies Allergy/AdvReac Type Severity Reaction Status Date / Time aspirin Allergy Severe Anaphylaxis Verified 07/23/23 09:51 latex Allergy Mild Verified 07/23/23 09:51 Penicillins Allergy Hives Verified 07/23/23 09:51 adhesive tape AdvReac Mild sensitivity Verified 07/23/23 09:51 Opioid HPI Opioid Management Most Recent Opioid Data: Last ORT Total Score 0 06/20/23 22:33 Last ORT Risk Category Low Risk 06/20/23 22:33 Review of Systems ROS Status of ROS 10 or more systems reviewed and unremark able except as noted in history and below [facility] Medical History (Updated 07/23/23 @ 11:35 by Sonam Keane MD) Pulmonary embolism on left ?I26.99 - Other pulmonary embolism without acute cor pulmonale (ICD-10) Acute respiratory failure with hypoxia ?J96.01 - Acute respiratory failure with hypoxia (ICD-10) JOE (acute kidney injury) ?N17.9 - Acute kidney failure, unspecified (ICD-10) Hypothermia ?T68.XXXA - Hypothermia, initial encounter (ICD-10) Severe sepsis ?A41.9 - Sepsis, unspecified organism (ICD-10) ?R65.20 - Severe sepsis without septic shock (ICD-10) Pneumonia ?J18.9 - Pneumonia, unspecified organism (ICD-10) Hypothyroidism ?E03.9 - Hypothyroidism, unspecified (ICD-10) Family History Other Family history of cancer Family history of stroke Social History Within the past year, how often did you have a drink containing alcohol: never Score interpretation: A score less than 4 is consistent with normal alcohol consumption. Smoking status: Never smoker Non-prescribed substance use: denies use Previous occupational history: [employer] Highest level of school completed/degree received: Associate degree: occupational, technical, vocational program Are you now , , , , never or living with a partner: In a typical week, how many times do you talk on the telephone with family, friends, or neighbors: 3 or more times per week How often do you get together with friends or relatives: 3 or more times per week Little interest or pleasure in doing things: not at all Feeling down, depressed, or hopeless: not at all Feel stressed/tense/nervous/anxious/difficulty sleeping: not at all Do you think of yourself as: straight/heterosexual Gender Identity: male Exam Narrative Exam Narrative: Nurses notes and vital signs reviewed and patient is not hypoxic. General: Well-appearing and in no apparent distress. Skin: Warm, dry, no pallor noted. No rash. Head: Normocephalic, atraumatic. Neck: Supple, non-tender. Eye: Pupils are equal, round and EOMI. No scleral icterus. Ears, Nose, Mouth, and Throat: TM are clear, no nasal mucosal hypertrophy. Oral mucosa is moist, no posterior oropharynx erythema, uvula is mid-line Cardiovascular: Regular Rate and Rhythm without murmur, gallop or rub. Respiratory: No accessory muscle use or respiratory distress. Lungs are clear to auscultation, no wheezing, rales or rhonchi Chest Wall: no tenderness Back: No midline thoracic or lumbar vertebral tenderness. No CVA tenderness Musculoskeletal: normal ROM, no calf or popliteal tenderness, no lower extremity edema/swelling GI: Abdomen is soft, non-distended. Normal bowel sounds. No masses appreciated. No tenderness to palpation. No rebound, guarding, or rigidity noted. Neurological: A&O x4. No cranial nerve dysfunction observed. No truncal ataxia. Moves all extremities. Sensation intact. Psychiatric: Cooperative and interactive. Normal mood and affect. Constitutional Vital Signs, click to edit/add: Last Vital Signs Temp 98.2 F 07/23/23 09:47 Pulse 70 07/23/23 11:29 Resp 18 07/23/23 11:29 BP 150/101 H 07/23/23 11:29 Pulse Ox 97 07/23/23 11:29 O2 Del Method Room Air 07/23/23 09:47 Course Vital Signs Vital signs: Vital Signs Temperature 98.2 F 07/23/23 09:47 Pulse Rate 81 07/23/23 09:47 Respiratory Rate 18 07/23/23 09:47 Blood Pressure 178/102 H 07/23/23 09:47 Pulse Oximetry 97 07/23/23 09:47 Oxygen Delivery Method Room Air 07/23/23 09:47 Temperature 98.2 F 07/23/23 09:47 Pulse Rate 70 07/23/23 11:29 Respiratory Rate 18 07/23/23 11:29 Blood Pressure 150/101 H 07/23/23 11:29 Pulse Oximetry 97 07/23/23 11:29 Oxygen Delivery Method Room Air 07/23/23 09:47 Medical Decision Making [facility] Narrative Medical decision making narrative: The patient hematuria resolved Urinalysis showed 1-2 RBCs and there is no signs of infection The patient chemistry shows possible dehydration with alkalosis and the patient drank at least 3 bottles of water each 500 cc before he gave us urine sample The patient was instructed on hydration He is set to follow-up with his primary care doctor for further evaluation of his blood pressure , the patient also to come back in case of any coming hematuria again right now the hematuria could be secondary to the left-sided kidney stone that he have with no signs of obstruction no abdominal pain no back pain The patient was instructed about alarming symptoms to bring him back to the ER including back pain fever or any continuous hematuria The patient is to follow up with primary care physician in next 2-3 days or to return to the emergency department should any of the signs or symptoms worsen or new symptoms develop. The patient agrees with the following Diagnosis and Treatment plan and the patient will be discharged home. Lab Data Labs: Lab Results 07/23/23 07/23/23 Range/Units 10:25 10:55 Sodium 139 (136-145) mmol/L Potassium 5.0 (3.5-5.1) mmol/L Chloride 103 (98-107) mmol/L Carbon Dioxide 32.3 H (21.0-32.0) mmol/L Anion Gap 8.7 BUN 15.0 (7.0-18.0) mg/dL Creatinine 1.32 H (0.70-1.30) mg/dL Est GFR ( Amer) >60 (>=60) Est GFR (Non-Af Amer) 54 L (>=60) BUN/Creatinine Ratio 11.4 Glucose 105 (74-106) mg/dL Calcium 8.7 (8.5-10.1) mg/dL Total Bilirubin 0.7 (0.2-1.0) mg/dL AST 17 (15-37) U/L ALT 18 (16-63) U/L Alkaline Phosphatase 81 (46-116) U/L Total Protein 6.9 (6.4-8.2) g/dL Albumin 3.3 L (3.4-5.0) g/dL Globulin 3.6 g/dL Albumin/Globulin Ratio 0.9 Urine Color Lt. yellow (YELLOW) Urine Clarity Clear (CLEAR) Urine pH 7.0 (5.0-9.0) Ur Specific [place] 1.010 (1.005-1.025) Urine Protein Negative (NEG/TRACE) mg/dL Urine Glucose (UA) Negative (NEGATIVE) mg/dL Urine Ketones Negative (NEGATIVE) mg/dL Urine Occult Blood Small A (NEGATIVE) Urine Nitrite Negative (NEGATIVE) Urine Bilirubin Negative (NEGATIVE) Urine Urobilinogen 0.2 (0.2-1.0) EU/dL Ur Leukocyte Esterase Negative (NEGATIVE) Urine RBC 2-5 A (0-2) #/HPF Urine WBC None seen (NONE SEEN) #/HPF Ur Squamous Epith Cells None seen (NONE/RARE) #/LPF Urine Crystals None seen (None Seen) #/HPF Urine Bacteria None seen (NONE SEEN) #/HPF Urine Casts None seen (NONE SEEN) #/LPF Urine Mucus None seen (NONE SEEN) Ur Culture Indicated? No Discharge Plan Discharge Stand Alone Forms: Portal Instructions Chief Complaint: Urogenital-Male Clinical Impression: Hematuria Qualifiers: Hematuria type: unspecified type Qualified Code(s): R31.9 - Hematuria, unspecified Patient Disposition: Home, Self-Care Time of Disposition Decision: 11:35 Prescriptions / Home Meds: No Action Eliquis 5 mg Tablet 5 mg PO BID Rx Instructions: 2 tabs bid for 5 days then 1 po BID levothyroxine 100 mcg tablet 100 mcg PO .once daily benzonatate 100 mg Capsule 200 mg PO Q8H PRN (Reason: Cough) Qty: 20 1RF potassium chloride 10 mEq Tablet,Er Particles/Crystals 20 meq PO TID Qty: 40 0RF levofloxacin 750 mg tablet 750 mg PO DAILY 10 Days Qty: 10 0RF (DME) walker Misc See Rx Instructions .Route Qty: 1 0RF Rx Instructions: As directed -0 F2F completed on 06/22 for safe ambulation Print Language: Yoruba Instructions: Hematuria (ED) Referrals: ARIANA MAGDALENO [Primary Care Provider] - 1 week
[2023-07-23 11:14] LABS: Bilirubin Urine NEGATIVE (NEGATIVE); Blood Urine SMALL (NEGATIVE); Clarity Urine CLEAR (CLEAR); Color Urine LT. YELLOW (YELLOW); Glucose Urine UA NEGATIVE (NEGATIVE); Ketones Urine NEGATIVE (NEGATIVE); Leukocyte Esterase Urine NEGATIVE (NEGATIVE); Nitrite Urine NEGATIVE (NEGATIVE); Protein Urine NEGATIVE (NEG/TRACE); Urobilinogen Urine 0.2 EU/dL (0.2-1.0)
[2023-07-23 11:15] LABS: Urine Microscopic Indicated YES
[2023-07-23 11:22] LABS: Bacteria Urine NONE SEEN #/HPF (NONE SEEN); Cast Seen? NONE SEEN #/LPF (NONE SEEN); Crystals Seen? None Seen #/HPF (None Seen); Mucus Urine NONE SEEN (NONE SEEN); Squamous Epithelial Cell Urine NONE SEEN #/LPF (NONE/RARE); WBC Urine NONE SEEN #/HPF (NONE SEEN)
[2023-07-23 11:23] LABS: Urine Culture Indicated NO
[2023-07-23 11:29] VITALS: BP 150/101; PULSE 70; O2SAT 97
== END 2023-07-23 11:39 | disposition home or self-care (01) ==
PROVIDERS: Emergency Provider Emergency Medicine; PCP Family Medicine
DX: R31.9 Hematuria, unspecified (principal)
CPT/HCPCS: 36415; 80053; 81001; 99283

== ENCOUNTER 2023-11-02 16:39 | Outpatient (OUT) | payer BC, MEDICARE, SELFPAY ==
--- NOTE | 2023-11-02 16:51 | US_ITS ---
[address] [address] Patient Name: FIONA BOSS MRN: [id number] date: 1955 Sex: M Assigned Patient Location: [facility] Current Patient Location: Accession/Order Number: [id number] Exam Date: 11/02/2023 18:38 Report Date: 11/05/2023 07:39 At the request of: AMAURY BRIGHT Procedure: US renal BI EXAMINATION: US renal BI HISTORY: Kidney stone COMPARISON: No relevant comparison available. TECHNIQUE: Ultrasound examination was performed of the bladder. FINDINGS: Right Kidney: Normal in size, contour and echotexture. The cortex measures 1.5 cm. No solid mass, hydronephrosis or obstructing nephrolithiasis. Height: 4.33 cm Length: 10.64 cm Width: 4.88 cm Left Kidney: Normal in size, contour and echotexture. The cortex measures 1.9 cm. No solid mass, hydronephrosis or obstructing nephrolithiasis. 5 mm nonobstructing nephrolith lower pole Height: 5.31 cm Length: 11.38 cm Width: 5.93 cm Urinary bladder measures 8.4 x 9.2 x 7.6 cm a volume of 111 mL. The prostate gland measures 4.9 x 3.0 x 4.6 cm. Heterogeneous echotexture with no focal mass US/US renal BI IMPRESSION: 5 mm nonobstructing left nephrolith Electronically authenticated by: CAPRICE CUEVA Date: 11/05/2023 07:39
--- NOTE | 2023-11-02 16:51 | XR_ITS ---
The [address] [address] Patient Name: FIONA BOSS MRN: [id number] date: 1955 Sex: M Assigned Patient Location: [facility] Current Patient Location: [facility] Accession/Order Number: [id number] Exam Date: 11/02/2023 16:55 Report Date: 11/05/2023 10:12 At the request of: AMAURY BRIGHT Procedure: XR abdomen 1V EXAMINATION: XR abdomen 1V HISTORY: Kidney stone COMPARISON: 06/21/2023 FINDINGS: KIDNEY/URETER - RIGHT: No visible renal or ureteral calcifications. KIDNEY/URETER - LEFT: 9 mm calcification lower pole of the left kidney PELVIS: No visible ureteral calcifications. Any visible calcifications favor phleboliths. BOWEL: No abnormal dilation or deviation. BONES: No acute abnormality. Moderate spondylosis OTHER: Negative. No abnormal gaseous collections. XR/XR abdomen 1V IMPRESSION: 9 mm left nephrolith Electronically authenticated by: CAPRICE CUEVA Date: 11/05/2023 10:12
--- OUTSIDE RECORDS SUMMARY | 2023-11-02 17:04 | XMS_ITS | CCD ---
Author Organization [facility] Care Team Providers Care Corporate Human Resources Manager Name Role Phone JESSICA SUH Unavailable Unavailable MICHAEL ROCHA Attending Unavailable MICHAEL ROCHA Attending Unavailable MICHAEL ROCHA Attending Unavailable Gladis Gutierrez Attending Unavailable ARIANA MAGDALENO Referring Unavailable Allergies Allergy Classification Reported Allergen(s) Allergy Type Date of Onset Reaction(s) Facility (1 source) Aspirin Drug Allergy 4 Anaphylaxis [facility] (1 source) Latex Allergy to substance 4 Rash [facility] (1 source) pencillin Allergy to substance 4 Unknown Reaction [facility] Medications Current Medications Medication Drug Class(es) Dates [...] MCG PO Daily June 17, 2023 12:00am [place] 5-Bhe-Mah-Fish Oil (Fish Oil) 100-160-1,000 mg capsule (1 source) Start: 06-17-2023 [place] 9-Hbj-Wjm-Fish Oil (Fish Oil) 100-160-1,000 mg capsule Active CAP PO June 17, 2023 12:00am Problems Problem Classification Problem Date Documented Da te Episodic/Chronic Unclassified (1 source) Unknown / UNK(Unknown) Onset: 03-29-2017 Results Test Name Value Interpretation Reference Range Facility CNOVon 03-29-2017 CNOV Office Visit (ENDOAV) ----TRICIA BOSS ([id number]) 1955 MDate Time Provider Department03/29/17 11:20 AM JESSICA SUH During your visit today, we recorded the following information about you: Pulse Respiration Blood pressure Weight 77/minute 16/minute 130/92 99.2 kg Height 1.88 Alfredo Suh MD 03/29/2017 11:40 AM SignedSelf referralHISTORY OF PRESENT ILLNESS:Tricia Boss is here for evaluation of hypothyroidism. He [...] to improve.Follow-up and Disposition History RecordedEncounter Number: [id number] Status:Closed by JESSICA SUH MD on 03/29/17 Normal [facility] PROGRESSon 03-29-2017 PROGRESS HNO ID: [id number] thor: Jessica Gabriel: (none)Author Type: PhysicianType: Progress NotesFiled: 03/29/2017 11:40 AMNote Text:Self referralHISTORY OF PRESENT ILLNESS:Tricia Boss is here for evaluation of hypothyroidism. He [...] sooner if concerning symptoms-Follow up prn Normal [facility] Vital Signs Date Time Vital Sign Value Performing Clinician Facility 06-17-2023 12:07-0400 Body height 187.96 cm [facility] 06-17-2023 12:07-0400 Body mass index (BMI) [Ratio] 28.8 kg/m2 [facility] 06-17-2023 12:07-0400 Body temperature 100.7 [degF] [facility] 06-17-2023 12:07-0400 Body weight 102.05 kg [facility] 06-17-2023 12:07-0400 Heart rate 107 /min [facility] 06-17-2023 12:07-0400 Respiratory rate 18 /min [facility] 06-17-2023 12:07-0400 SaO2% (BldA) [Mass fraction] 95 % [facility] Encounters Encounter Date Encounter Type Care Provider Facility Start: 11-14-2023 ambulatory Gladis Gutierrez Facility:[facility] Start: 07-27-2023 ambulatory Gladis Gutierrez Facility:[facility] Start: 07-26-2023 End: 07-26-2023 ambulatory MICHAEL ROCHA Not Available Start: 07-19-2023 End: 07-19-2023 ambulatory MICHAEL RCOHA Not Available Start: 06-28-2023 End: 06-28-2023 ambulatory MICHAEL ROCHA Not Available Start: 06-17-2023 End: 06-17-2023 ambulatory [facility] Work Phone: Start: 06-17-2023 End: 06-17-2023 Patient encounter procedure [facility] Work Phone: Start: 03-29-2017 End: 03-29-2017 Ambulatory JESSICA SUH [facility] Plan of Treatment Date Care Activity Detail Author [facility] Payers Date Payer Category Payer Medicare [id number] 2017 Unknown [id number] 1955 Unknown [id number] 1955 Unknown [id number] 1955 Unknown [id number] Social History Date Type Detail Facility Start: 06-17-2023 Tobacco smoking stat us NHIS Never smoked tobacco (finding) [facility] Start: 1955 Sex Assigned At Male F [facility] Evaluation note Note Date & Type Note Facility Evaluation note No assessment information availa ble [facility] Work Phone: Summary Purpose Family History No Family History Records FoundNo Family History Records FoundNo Family History Records Found Advance Directives No Advanced Directives Records Found Advance Directive Response Recorded Date/ Time Advance Directives No June 16 024 11:57am Chief Complaint and Reason for Visit Chief Complaint Cough, Congestion, F ever, Bodyache Additional Source Comments (unrecognized sect ion and content) No Status Records FoundNo Status Records FoundNo Status Records Found INFORMATION SOURCE (unrecogn ized section and content) DATE CREATED AUTHOR 08/20/2017 [facility] DATE CREATED AUTHOR AUTHOR'S ORGANIZ ATION 07/27/2023 [facility] DATE CREATED AUTHOR AUTHOR'S ORGANIZ ATION 07/30/2023 [facility] Care Teams (unrecognized sec tion and content) Team Status: Active Member Role Status Dates Ariana Magdaleno MD Primary Care Provider Active Team Status: Inactive Member Role Status Dates Carito Irvin Velasquez APRN Attending Provider Active Start: June 17, 2023 End: June 17, 2023 Ariana Magdaleno MD Primary Care Provider Active S tart: [...] BE BASED ON THE PRIMARY CLINICAL RECORDS. [employer] provides no warranty or guarantee of the accuracy or completeness of information in this document.
== END 2023-11-02 16:40 | disposition home or self-care (01) ==
LOC: RAD 16:42
PROVIDERS: PCP Family Medicine; Visit Provider Urology
DX: N20.0 Calculus of kidney (principal)
CPT/HCPCS: 74018; 76775

== ENCOUNTER 2023-12-18 07:16 | Outpatient (OUT) | payer BC, MEDICARE, SELFPAY ==
--- NOTE | 2023-12-18 | CT_ITS ---
[address] [address] Patient Name: FIONA BOSS MRN: [id number] date: 1955 Sex: M Assigned Patient Location: LAB Current Patient Location: Accession/Order Number: [id number] Exam Date: 12/18/2023 07:45 Report Date: 12/19/2023 06:42 At the request of: MAKENNA VIDALES Procedure: CT angio chest EXAMINATION: CT angio chest HISTORY: History of pulmonary embolism Z86.711 COMPARISON: CTA chest 06/21/2023 TECHNIQUE: Multi-planar CT images were created with IV contrast. Axial, Coronal, and Sagittal images. Dose reduction techniques were achieved by using automated exposure control and/or adjustment of mA and/or kV according to patient size and/or use of iterative reconstruction technique. 3-D reconstruction was performed on a separate workstation. FINDINGS: VASCULATURE: No pulmonary embolism or abnormal opacity. LUNGS: Geographic shaped 2.1 cm opacity within right posterior costophrenic angle and 0.8 cm within left posterior costophrenic angle. Mild haziness of the lower lobe parenchyma bilaterally suggestive of infiltrates or atelectasis. PLEURA: No mass, effusion, or pneumothorax. MATILDA: No mass or adenopathy. MEDIASTINUM: No mass or adenopathy. CARDIAC: No enlargement, pericardial effusion, or pericardial thickening. AORTA: No aneurysm or dissection. CHEST WALL: No mass or axillary adenopathy. BONES: No bone lesion or fracture. LIMITED ABDOMEN: No suspicious findings. Limited images of the upper abdomen. OTHER: Negative. CT/CT angio chest IMPRESSION: 1. Clearing of previously seen pulmonary emboli. 2. Geographic shaped opacity within the posterior costophrenic angle on the right and left, with clearing of the rest of the previously seen dense infiltrates/consolidation. This may represent residual infiltrates/consolidation or masses. Consider follow-up CT chest in 1 month with full lung expansion at time of imaging to document clearing versus stability. Electronically authenticated by: AMMY SABILLON Date: 12/19/2023 06:42
--- OUTSIDE RECORDS SUMMARY | 2023-12-18 07:18 | XMS_ITS | CCD ---
Author Organization [facility] Inform ion Partnership [facility] Care Team Providers Care Vertical Lathe Operator Name Role Phone JESSICA SUH Unavailable Unavailable REED KATE Primary Care Physician REED KATE Attending Unavail able REED KATE Admitting Unavail able MAKENNA FAJARDO Attending Unavailable LAURE ROCHA Attending Unavailable LAURE ROCHA Attending Unavailable LAURE ROCHA Attending Unavailable Víctor Magdaleno MD Primary Care Provider [phone] Laure Rocha NP Unavailable MD REED KATE Attending Unav ailable VÍCTOR MAGDALENO Referring Unavailable Gladis Gutierrez Attending Unavailable VÍCTOR MAGDALENO Referring Unavailable MD REED KATE Admitting Unav ailable MD REED KATE Attending Unav ailable Allergies Allergy Classification Reported Allergen(s) Allergy Type Date of Onset Reaction(s) Facility (7 sources) Aspirin; Translations: [Aspirin] Drug Allergy 8 Swelling (finding), Swelling [facility] (7 sources) Latex; Translations: [Latex] Allergy to substance 8 Weal (disorder), Rash [facility] (1 source) pencillin Allergy to substance 4 Unknown Reaction [facility] (3 sources) bacitracin / neomycin / polymyxin b; Translations: [bacitracin/cynthia mycin/polymyxin B topical] Drug Allergy Eruption of skin (disorder) [facility] (3 sources) Penicillin; Translations: [penicillin] Drug Allergy Weal (disorder) [facility] (3 sources) Neomycin Drug Allergy 8 Rash [facility] (3 sources) Penicillins Drug Allergy 8 [facility] Medications Current Medications Medication Drug Class(es) Dates Sig (Normalized) Sig (Original) albuterol 0.83 mg/ml inhalation solution (6 sources) beta2-Adrenergic Agonist Start: 07-26-2023 albuterol (2.5 MG/3ML) 0.083% nebulizer solution Indications: Atelectasis, bilateral , History of pneumonia Take 3 mL (2.5 mg) by nebulization every 6 (six) hours if needed for wheezing or shortness of breath 75 mL 11 07/26/2023 Active Start: 06-28-2023 albuterol (2.5 MG/3ML) 0.083% nebulizer solution Indications: Community acquired pneumonia, bilateral , SOB (shortness of breath) Take 3 mL (2.5 mg) by nebulization in the morning and 3 mL (2.5 mg) at noon and 3 mL (2.5 mg) in the evening and 3 mL (2.5 mg) before bedtime. Do all this for 14 days. 168 mL 06/28/2023 Active apixaban 5 mg oral tablet (5 sources) Factor Xa Inhibitor Start: 11-23-2023 take 1 tablet by mouth twice daily Eliquis 5 mg oral tablet 5 mg = 1 tab(s), Oral, BID Start Date: 11/23/23 Status: Ordered Start: 06-25-2023 take 2 tablets by [facility] twice daily, then take 1 tablet by mouth twice daily Eliquis 5 MG tablet take 2 tablet by mouth twice a day for 5 days then take 1 tablet twice a day 06/25/2023 Active benzonatate 100 mg oral capsule (3 sources) Non-narcotic Antitussive Start: 06-23-2023 End: 12-05-2023 take 2 capsules by mouth every eight hours for cough benzonatate (Tessalon) 100 MG capsule take 2 capsule by mouth every 8 hours if needed for cough 06/23/2023 12/05/2023 Discontinued (Other) cholecalciferol 0.025 mg oral tablet (1 source) Vitamin D Start: 04-21-2024 take 25 ug by mouth once daily Cholecalciferol (Vitamin D3) Active 25 MCG PO Daily June 17, 2023 12:00am levoFLOXacin 750 mg oral tablet (3 sources) Quinolone Antimicrobial Start: 06-23-2023 End: 12-05-2023 take 1 tablet by mouth once daily levoFLOXacin (Levaquin) 750 MG tablet Take 1 tablet by mouth Daily 06/23/2023 12/05/2023 Discontinued (Other) levothyroxine sodium 0.1 mg oral tablet (6 sources) l-Thyroxine Start: 11-23-2023 take 1 tablet by mouth once daily levothyroxine 100 mcg (0.1 mg) Tab 100 mcg = 1 tab(s), Oral, Daily Start Date: 11/23/23 Status: Ordered Start: 09-10-2023 take 1 tablet by ta th once daily in the morning levothyroxine (Synthroid, Levoxyl) 100 MCG tablet Indications: Acquired hypothyroidism (CMS/HCC) take 1 tablet by mouth every morning 90 tablet 3 09/10/2023 Active Start: 06-17-2023 take 100 ug by mouth once daily Levothyroxine Active 100 MCG PO Daily June 17, 2023 12:00am montelukast 10 mg oral tablet (3 sources) Leukotriene Receptor Antagonist Start: 07-26-2023 End: 12-05-2023 take 1 tablet by mouth at bedtime montelukast (Singulair) 10 MG tablet Indications: Seasonal allergies Take 1 tablet (10 mg) by mouth at bedtime 30 tablet 2 07/26/2023 12/05/2023 Discontinued (Other) [place] 8-Mqx-Lzw-Fish Oil (Fish Oil) 100-160-1,000 mg capsule (1 source) Start: 06-17-2023 [place] 1-Yet-Wet-Fish Oil (Fish Oil) 100-160-1,000 mg capsule Active CAP PO June 17, 2023 12:00am microencapsulated potassium chloride 10 meq extended release oral tablet (3 sources) Start: 06-23-2023 End: 12-05-2023 potassium chloride CR (Klor-Con M10) 10 MEQ ER tablet take 2 tablet by mouth three times a day 06/23/2023 12/05/2023 Discontinued (Other) Problems Problem Classification Problem Date Documented Da te Episodic/Chronic Acute and unspecified renal failure (3 sources) Acute renal failure syndrome; Translations: [Acute kidney failure, unspecified] Onset: 11-30-2023 11-30-2023 Episodic Biliary tract disease (2 sources) Gallstone 11-23-2023 Episodic Calculus of urinary tract (3 sources) Kidney stone; Translations: [Calculus of kidney] Onset: 11-23-2023 11-23-2023 Episodic Deficiency and other anemia (2 sources) Iron deficiency anemia 11-23-2023 Episodic Disorders of lipid metabolism (7 sources) Pure hypercholesterolemi a; Translations: [Pure hypercholesterolemi a, unspecified] Onset: 09-13-2022 11-23-2023 Chronic Genitourinary symptoms and ill-defined conditions (5 sources) Mike hematuria; Translations: [Blood in urine] Onset: 11-23-2023 11-23-2023 Episodic Hyperplasia of prostate (3 sources) Benign prostatic hypertrophy with outflow obstruction; Translations: [Benign prostatic hyperplasia with lower urinary tract symptoms] Onset: 11-23-2023 11-23-2023 Chronic Immunizations and screening for infectious disease (2 sources) Patient encounter status; Translations: [Encounter for screening for other viral diseases] 12-05-2023 Episodic Other aftercare (1 source) Long-term current use of anticoagulant; Translations: [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 anticoagulants] Onset: 11-23-2023 Episodic Other liver diseases (3 sources) Decreased liver function; Translations: [Other specified diseases of liver] Onset: 09-13-2022 09-13-2022 Chronic Other screening for suspected conditions (not mental disorders or infectious disease) (6 sources) Decreased liver function; Translations: [Patient encounter status] Onset: 09-13-2022 11-23-2023 Episodic Pulmonary heart disease (2 sources) H/O: pulmonary embolus; Translations: [Personal history of pulmonary embolism] 12-05-2023 Episodic Thyroid disorders (9 sources) Acquired hypothyroidism; Translations: [Hypothyroidism] Onset: 09-13-2022 11-23-2023 Chronic Unclassified (1 source) Unknown / UNK(Unknown) Onset: 03-29-2017 Unclassified (2 sources) Drug therapy finding 11-23-2023 Results Test Name Value Interpretation Reference Range Facility Provider Letteron 12-10-2023 Provider Letter Provider Letter December 10, 2023 TRICIA CALDWELL [address] [place] [address] : 1955 Dear Mr.Huston Caldwell, We have been trying to reach you with no success. It is important that you return our call upon receiving this letter. Also, at the time of your call, please provide us with your current information. Thank you for your prompt attention to this matter. Sincerely, [facility] [address] [place] [address] [facility] Ambulatory Visit Summaryon 0 11-23-2023 Ambulatory Visit Summary Ambulatory Visit Summary TRICIA CALDWELL :1955 Visit Date:11/23/2023 Ambulatory Visit Instructions Your Diagnosis Kidney stones BPH with urinary obstruction Gross hematuria Anticoagulated Tests Performed XR Abdomen 1 View -- Results Pending -- Please visit your patient portal for your results or contact your primary care physician. Your Care Team Attending Physician - REED KATE MD Referring Physician - VÍCTOR MAGDALENO MD This Is Your Medications List Contact prescribing physician if questions or concerns apixaban (Eliquis 5 mg oral tablet) levothyroxine (levothyroxine 100 mcg (0.1 mg) Tab) Discharge Vitals Heart Rate (Peripheral) 84 Respiratory Rate 16 Blood Pressure 138/86 Height 189 cm Height 74 in Weight 98 kg Weight 215.6 lb BMI 27.43 What to do next You Need to Schedule the Following Appointments Follow Up with LAVINIA MERCADO, DWIGHT MCBRIDE When: Where: Medications What How Much When Instructions Unchanged apixaban (Eliquis 5 mg oral tablet) 1 Tablets By Mouth 2 times a day Contact prescribing physician if questions or concerns Unchanged levothyroxine (levothyroxine 100 mcg (0.1 mg) Tab) 1 Tablets By Mouth Every day Contact prescribing physician if questions or concerns Allergies Latex (Hives) Neosporin (Rash) aspirin (Swelling) penicillin (Hives) Problems Ongoing - Any problem that you are currently receiving treatment for. Acquired hypothyroidism Anticoagulated BPH with urinary obstruction Decreased liver function Gall stone Gross hematuria Iron deficiency anemia Kidney stones Pure hypercholesterolemia Patient Survey You may receive a survey via text or e-mail asking about your office visit. Please share your experience with us by completing your survey. We appreciate your feedback and thank you for choosing us for your care. Education Materials Dietary Guidelines to Help Prevent Kidney Stones Kidney stones are deposits of minerals and salts that form inside your kidneys. Your risk of developing kidney stones may be greater depending on your diet, your lifestyle, the medicines you take, and whether you have certain medical conditions. Most people can lower their risks of developing kidney stones by following these dietary guidelines. Your dietitian may give you more specific instructions depending on your overall health and the type of kidney stones you tend to develop. What are tips for following this plan? Reading food labels ? Choose foods with no salt added or low-salt labels. Limit your salt (sodium) intake to less than 1,500 mg a day. ? Choose foods with calcium for each meal and snack. Try to eat about 300 mg of calcium at each meal. Foods that contain 200?500 mg of calcium a serving include: ? 8 oz (237 mL) of milk, iyqgcks-xjakbaihlbtw-vgfut milk, and calcium-fortifiedfruit juice. Calcium-fortified means that calcium has been added to these drinks. ? 8 oz (237 mL) of kefir, yogurt, and soy yogurt. ? 4 oz (114 g) of tofu. ? 1 oz (28 g) of cheese. ? 1 cup (150 g) of dried figs. ? 1 cup (91 g) of cooked broccoli. ? One 3 oz (85 g) can of sardines or mackerel. Most people need 1,000?1,500 mg of calcium a day. Talk to your dietitian about how much calcium is recommended for you. Shopping ? Buy plenty of fresh fruits and vegetables. Most people do not need to avoid fruits and vegetables, even if these foods contain nutrients that may contribute to kidney stones. ? When shopping for convenience foods, choose: ? Whole pieces of fruit. ? Pre-made salads with dressing on the side. ? Low-fat fruit and yogurt smoothies. ? Avoid buying frozen meals or prepared deli foods. These can be high in sodium. ? Look for foods with live cultures, such as yogurt and kefir. ? Choose high-fiber grains, such as whole-wheat breads, oat bran, and wheat cereals. Cooking ? Do not add salt to food when cooking. Place a salt shaker on the table and allow each person to add their own salt to taste. ? Use vegetable protein, such as beans, textured vegetable protein (TVP), or tofu, instead of meat in pasta, casseroles, and soups. Meal planning ? Eat less salt, if told by your dietitian. To do this: ? Avoid eating processed or pre-made food. ? Avoid eating fast food. ? Eat less animal protein, including cheese, meat, poultry, or fish, if told by your dietitian. To do this: ? Limit the number of times you have meat, poultry, fish, or cheese each week. Eat a diet free of meat at least 2 days a week. ? Eat only one serving each day of meat, poultry, fish, or seafood. ? When you prepare animal proteins, cut pieces into small portion sizes. For most meat and fish, one serving is about the size of the palm of your hand. ? Eat at least five servings of fresh fruits and vegetables each day. To do this: ? Ke (more content not included)... Normal [facility] Reminderson 11-23-2023 Reminders Reminders From: Arlene Emerson To: EU - Administrative; Sent: 11/23/2023 08:47:04 EDT Show up: 05/22/2024 08:46:00 EDT Subject: 9 month f/u Due Date/Time: 08/22/2024 08:46:00 EDT Reminder/Recall Pt needs 9 month f/u w/KUB & micro UA w/ KNA Normal [facility] URINALYSISOrdered By: SYSTEM SYSTEM on 11-23-2023 Bilirubin Ql (U) Negative Normal Negativemg/ dL [facility] UA Auto SS Clarity (U) Clear (11/23/23 9:30 AM) Normal Clear [facility] UA Auto SS Color (U) Colorless 1 *ABN* (11/23/23 9:30 AM) Invalid Interpretation Code Yellow [facility] UA Auto SS Comment on above: Interpretive Data: M icroscopic readings are only performed on those samples that meet specific criteria set forth by [facility]. Glucose Ql (U) Negative Normal Negativemg/ dL [facility] UA Auto SS Hemoglobin Auto test strip (U) [Mass/Vol] 1+ mg/dL Invalid Interpretation Code Negativemg/ dL [facility] UA Auto SS Ketones Auto test strip Ql (U) Negative Normal Negativemg/ dL [facility] UA Auto SS Leukocyte esterase Auto test strip Ql (U) Negative Normal NegativeLeu /uL [facility] UA Auto SS Mucus Auto Ql (U) Negative Normal Negativegr a ded/LPF FT UA Auto SS Nitrite Auto test strip Ql (U) Negative Normal Negativemg/ dL [facility] UA Auto SS pH (U) 5.5 *NA* (11/23/23 9:30 AM) Invalid Interpretation Code 5.0 - 9.0 [facility] UA Auto SS Protein Ql (U) Negative Normal Negativemg/ dL [facility] UA Auto SS Specific gravity (U) [Rel density] 1.004 *NA* (11/23/23 9:30 AM) Invalid Interpretation Code 1.005 - 1.030 [facility] UA Auto SS Urobilinogen (U) [Mass/Vol] Negative Normal Negativemg/ dL [facility] UA Auto SS URINALYSISOrdered By: Harpreet Waddell on 11-23-2023 UA Spec Desc Random Urine (11/23/23 9:30 AM) Normal [facility] UA Auto SS Urinalysis with Microon 10-28 Bilirubin Ql (U) Negative Normal Negative [facility] Comment on above: Performed By: #### 4 [id number] #### [facility] [address] [place] [address] Clarity (U) Clear Normal Clear [facility] Comment on above: Performed By: #### 4 [id number] #### [facility] [address] [place] [address] Color (U) Colorless Abnormal Yellow [facility] Comment on above: Result Comment: Micr oscopic readings are only performed on those samples that meet specific criteria set forth by [facility]. Performed By: #### 4 [id number] #### [facility] [address] [place] [address] Glucose Ql (U) Negative Normal Negative [facility] Comment on above: Performed By: #### 4 [id number] #### [facility] [address] [place] [address] Hemoglobin Auto test strip (U) [Mass/Vol] 1+ mg/dL Abnormal Negative [facility] Comment on above: Performed By: #### 4 [id number] #### [facility] [address] [place] [address] Ketones Auto test strip Ql (U) Negative Normal Negative [facility] Comment on above: Performed By: #### 4 [id number] #### [facility] [address] [place] [address] Leukocyte esterase Auto test strip Ql (U) Negative Normal Negative [facility] Comment on above: Performed By: #### 4 [id number] #### [facility] [address] [place] [address] Mucus Auto Ql (U) Negative Normal Negative [facility] Comment on above: Performed By: #### 4 [id number] #### [facility] [address] [place] [address] Nitrite Auto test strip Ql (U) Negative Normal Negative [facility] Comment on above: Performed By: #### 4 [id number] #### [facility] [address] [place] [address] pH (U) 5.5 [pH] Invalid Interpretation Code 5.0-9.0 [facility] Comment on above: Performed By: #### 4 [id number] #### [facility] [address] [place] [address] Protein Ql (U) Negative Normal Negative [facility] Comment on above: Performed By: #### 4 [id number] #### [facility] [address] [place] [address] Specific gravity (U) [Rel density] 1.004 Invalid Interpretation Code 1.005-1.030 [facility] Comment on above: Performed By: #### 4 [id number] #### [facility] [address] [place] [address] Urobilinogen (U) [Mass/Vol] Negative Normal Negative [facility] Comment on above: Performed By: #### 4 [id number] #### [facility] [address] [place] [address] Type of Urine collection method Random Urine Normal [facility] Comment on above: Performed By: #### 4 [id number] #### [facility] [address] [place] [address] Urology Office/Clinic Noteon 11-23-2023 Urology Office/Clinic Note Urology Office/Clinic Note Chief Complaint New patient left nephrolithiasis HPI Staff 68 yo male referred by Dr. Magdaleno for left nephrolithiasis. CT Abdomen w IV con 06/21/23 [facility]. KUB 11/02/23 [facility]. Renal US 11/02/23 [facility]. PSA: 04/17/19 - 0.619 07/08/20 - 0.516 08/18/21 - 0.58 IPSS: 4 Dysuria: denies Incomplete bladder emptying: denies Hematuria: denies Frequency: denies Urgency: denies Nocturia:once a night Stream: denies hesitancy, has a steady stream Leaking: denies Post void dripping: denies Wearing pads/ Depends: denies Urge incontinence: denies Stress incontinence: denies Incontinence without Sensory Awareness: denies Abdominal pain: denies Flank pain: denies Sexual complaints: _ History of Present Illness Tests reviewed: reviewed UA, CT, KUB, KYE, labs, external records. I have reviewed the previous health record information and history for this patient from external provider. I have reviewed and verified the staff HPI to be accurate for this encounter. There have been no associated fever, chills, flank pain, or blood in the urine. Denies any urinary infections since last encounter. Review of Systems PHQ Score Initial Depression Screen Score: 0 SCORE ROS - Provider Constitutional: denies weight loss, denies hot flashes. Eyes: denies eye problems. Gastrointestinal: denies nausea, denies vomiting. Cardiovascular: denies chest pain or angina. Integumentary: no dryness Musculoskeletal: denies musculoskeletal symptoms. ENMT: denies otolaryngeal symptoms. Respiratory: no shortness of breath. Heme/Lymph: denies easy bleeding tendency, denies easy bruising tendency. Psychiatric: no confusion, no anxiety. Genitourinary: See HPI. Physical Exam Vitals & Measurements HR: 84(Peripheral) RR: 16 BP: 138/86 HT: 74 in HT: 189 cm WT: 98 kg WT: 215.6 lb BMI: 27.43 General Appearance: alert, no distress, well nourished, well developed male. Head: normocephalic . Eyes: normal orbit and globe. ENMT: normal examination of external ears. Skin: warm, dry, no bruising. Psychiatric: cooperative, affect appropriate for age, normal judgement, euthymic mood. Assessment/Plan [address] male [address] Dr[address] Magdaleno for left nephrolithiasis. No prior abdominal surgeries or anesthesia complications. Denies diabetes or high cholestetrol. Portions of this record may have been created with voice recognition artificial intelligence software, specifically [employer], [employer] and or [employer]. Substitutions may have occurred due to the inherent limitations of voice recognition and artificial intelligence software. 1. Kidney stones (N20.0: Calculus of kidney) CT Abdomen w IV con 06/21/23 [facility] - nonobstructing 10 mm stone within left kidney. Upon personal review, agree with findings. 510 Hounsfield units. KUB 11/02/23 [facility] - 9 mm stone LLP. Renal US 11/02/23 [facility] - 5 mm stone LLP. No hydro. Latest kidney fxn 07/2023 ~Cr 1.41, eGFR 54. Hx of stones in the past, believes he passed them on his own. Never caught a stone. Denies hx of surgical management. Denies family hx of kidney stones. Denies pain currently. Denies fever, chills, N/V, difficulty urinating. Drinks 1/2 gallon of water daily. Pt states his diet consists of fruits, vegetables, and chocolate. Advised pt to limit sodium intake and to eat minimal animal protein. Discussed surgical management of stone but due to pt being asymptomatic we will cont to monitor. -Monitor for stone passage symptoms, present to the ER with fever, chills, N/V, difficulty urinating -Dietary modifications -Follow up in 9 mos w/ KUB 2. BPH with urinary obstruction (N40.1: Benign prostatic hyperplasia with lower urinary tract symptoms) PSA: 02/20/20 - 0.619 07/08/20 - 0.516 08/18/21 - 0.58 Primary care checks PSA. Continue annual prostate cancer screening. Renal US 11/02/23 [facility] - prostate measures 35 mL. IPSS 4. Not taking any BPH meds. Nocturia 1x. Strong stream. Denies hesitancy. Emptying well. 3. Gross hematuria (R31.0: Gross hematuria) Witnessed gross hematuria 3-4 months ago. One episode. Pt states he went to the ER and was sent home without diagnosis. UA today shows trace-intact blood. 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 No smoking history. Discussed potential etiologies and implications of hematuria with patient. These include: Prostatic disease (prostatitis, BPH, cancer), trauma (recent catheterization, etc), Tumor (renal, urothelial, prostatic, urethral, etc), infection/inflammation (UTI, cystitis, recent catheterization, interstitial cystitis, radiation), stones, period/menses (pseudohematuria), obstructive uropathy (urolithiasis, stricture, etc), nephritis (glomeurlonephritis, Alport's syndrome, Garcias's IgA nephropathy, interstitial nephritis, etc), Tuberculosis, thrombosis (renal vein thrombosis, renal infarct, pseudoaneurysm, etc) and hematologic (bleeding disorders, anticoagulation, sickle cells d (more content not included)... [facility] Comment on above: Result Comment: Elec tronically Signed By: LAVINIA MERCADO, REED\.chantel\Date and Time Signed: 11/23/23 08:54 EDT Raudel 03-29-2017 [facility] Office Visit (ENDOAV) TRICIA CALDWELL ([id number]) 1955 MDate Time Provider Department03/29/17 11:20 AM [...] male with hypothyroidism. He is clinically and biochemicallyeuthyroid.-Co ntinue current levothyroxine dose-Reviewed appropriate way to take [...] 03/29/2017 11:00 AM >> RODRIGO BRUNNER MA Mar 29, 2017 11:00 AM Received from: External PharmacyProblem List As Of Date: 03/29/2017(None)Dispositio n: Return if symptoms worsen or fail to improve.Follow-up and Disposition History RecordedEncounter Number: [id number] Status:Closed by JESSICA SUH MD on 03/29/17 Normal [facility] PROGRESSon 03-29-2017 PROGRESS HNO ID: [id number] thor: Jessica Gabriel: (none)Author Type: PhysicianType: Progress [...] male with hypothyroidism. He is clinically and biochemicallyeuthyroid.-Co ntinue current levothyroxine dose-Reviewed appropriate way to take levothyroxine-Recommend TSH annually or sooner if concerning symptoms-Follow up prn [facility] Vital Signs Date Time Vital Sign Value Performing Clinician Facility 12-05-2023 09:29-0400 Body height 188 cm Makenna Fajardo ECOLOGY TEACHER Work Phone: [facility] 12-05-2023 09:29-0400 Body mass index (BMI) [Ratio] 27.35 kg/m2 Makenna Fajardo ECOLOGY TEACHER Work Phone: [facility] 12-05-2023 09:29-0400 Body weight 96.62 kg Makenna Fajardo ECOLOGY TEACHER Work Phone: [facility] 12-05-2023 09:29-0400 Diastolic blood pressure 88 mm[Hg] Maknena Fajardo ECOLOGY TEACHER Work Phone: [facility] 12-05-2023 09:29-0400 Heart rate 75 /min Makenna Fajardo ECOLOGY TEACHER Work Phone: [facility] [facility] 12-05-2023 09:29-0400 SaO2% (BldA) [Mass fraction] 98 % Makenna Fajardo ECOLOGY TEACHER Work Phone: [facility] 12-05-2023 09:29-0400 Systolic blood pressure 138 mm[Hg] Makenna Fajardo ECOLOGY TEACHER Work Phone: [facility] 11-23-2023 08:12-0400 Diastolic blood pressure 86 mm[Hg] REED NKANSAH-AMANKRA [facility] 11-23-2023 08:12-0400 Heart rate 84 /min REED NKANSAH-AMANKRA [facility] 11-23-2023 08:12-0400 Respiratory rate 16 /min REED NKANSAH-AMANKRA [facility] 11-23-2023 08:12-0400 Systolic blood pressure 138 mm[Hg] REED NKANSAH-AMANKRA [facility] 06-17-2023 12:07-0400 Body height 187.96 cm [facility] 06-17-2023 12:07-0400 Body mass index (BMI) [Ratio] 28.8 kg/m2 [facility] 06-17-2023 12:07-0400 Body temperature 100.7 [degF] [facility] 06-17-2023 12:07-0400 Body weight 102.05 kg [facility] 06-17-2023 12:07-0400 Heart rate 107 /min [facility] 06-17-2023 12:07-0400 Respiratory rate 18 /min [facility] 06-17-2023 12:07-0400 SaO2% (BldA) [Mass fraction] 95 % [facility] Encounters Encounter Date Encounter Type Care Provider Facility Start: 12-05-2023 End: 12-05-2023 Bamboo flowsheet Makenna Fajardo ECOLOGY TEACHER Work Phone: [facility] Start: 12-05-2023 End: 12-05-2023 Bamboo flowsheet Makenna Fajardo ECOLOGY TEACHER Work Phone: [facility] Start: 12-05-2023 End: 12-05-2023 Assay of hemosiderin, quant Makenna Fajardo ECOLOGY TEACHER Work Phone: [facility] Start: 12-05-2023 End: 12-05-2023 Patient encounter procedure Makenna Fajardo ECOLOGY TEACHER Work Phone: [facility] Comment on above: Medicare annual well ness visit, initial (Primary Dx); Nocturia; Screening for lipid disorders; Screening for colon cancer; Hypothyroidism, unspecified type (CMS/HCC); Acquired hypothyroidism (CMS/HCC); History of pulmonary embolism; Pure hypercholesterolemia (CMS/HCC); Encounter for hepatitis C screening test for low risk patient; Routine general medical examination at health care facility Start: 12-05-2023 End: 12-05-2023 ambulatory MAKENNA FAJARDO Not Available Start: 12-05-2023 ambulatory Gladis Gutierrez Facility:[facility] Start: 11-23-2023 End: 11-23-2023 ambulatory REED LAVINIA [place] Start: 11-23-2023 End: 11-23-2023 Lab Drop off REED KATE [facility] Start: 11-23-2023 End: 11-23-2023 ambulatory MD REED KATE Facility:[facility] Start: 11-23-2023 End: 11-23-2023 Patient encounter procedure REED KATE [facility] Start: 07-27-2023 ambulatory MD REED KATE Facility:[facility] Start: 07-26-2023 End: 07-26-2023 ambulatory LAURE Sampson ROCHA Not Available Start: 07-19-2023 End: 07-19-2023 ambulatory LAURE Sampson ROCHA Not Available Start: 06-28-2023 End: 06-28-2023 ambulatory LAURE Sampson ROCHA Not Available Start: 06-17-2023 End: 06-17-2023 ambulatory [facility] Work Phone: Start: 06-17-2023 End: 06-17-2023 Patient encounter procedure [facility] [address] [facility] [place] Work Phone: Start: 03-29-2017 End: 03-29-2017 Ambulatory JESSICA SUH [facility] Plan of Treatment Date Care Activity Detail Author Start: 12-05-2023 End: 12-04-2024 CT Chest W contrast IV and CT angiogram Pulmonary arteries for pulmonary embolus W contrast IV CT chest pulmonary embolism w IV contrast Imaging Routine History of pulmonary embolism Expected: 12/05/2023, Expires: 12/04/2024 [facility] Comment on above: Expected: 12/05/2023 , Expires: 12/04/2024 Start: 12-05-2023 End: 12-04-2024 HEPATITIS C AB W/RFL RNS, PCR W/RFL GENOTYPE,LIPA HEPATITIS C AB W/RFL RNS, PCR W/RFL GENOTYPE,LIPA Lab Routine Encounter for hepatitis C screening test for low risk patient Expected: 12/05/2023 (Approximate), Expires: 12/04/2024 [facility] Comment on above: Expected: 12/05/2023 (Approximate), Expires: 12/04/2024 Start: 12-05-2023 End: 12-04-2024 Lipid 1996 panel - Serum or Plasma Lipid panel Lab Routine Medicare annual wellness visit, initial Screening for lipid disorders Expected: 12/05/2023 (Approximate), Expires: 12/04/2024 [facility] Work Phone: Comment on above: Expected: 12/05/2023 (Approximate), Expires: 12/04/2024 Start: 12-05-2023 End: 12-04-2024 Prostate specific Ag [Mass/volume] in Serum or Plasma PSA Lab Routine Nocturia Medicare annual wellness visit, initial Expected: 12/05/2023 (Approximate), Expires: 12/04/2024 [facility] Comment on above: Expected: 12/05/2023 (Approximate), Expires: 12/04/2024 Start: 12-05-2023 End: 12-04-2024 TSH W/REFLEX TO FT4 TSH W/REFLEX TO FT4 Lab Routine Medicare annual wellness visit, initial Hypothyroidism, unspecified type (CMS/HCC) Expected: 12/05/2023 (Approximate), Expires: 12/04/2024 [facility] Comment on above: Expected: 12/05/2023 (Approximate), Expires: 12/04/2024 Start: 12-05-2023 End: 12-05-2023 Patient encounter procedure 12/05/2023 9:30 AM EDT Office Visit [facility] [address] [facility] [address] [place] [address] Makenna Fajardo NP [address] [facility] [address] [place] [address] Arrived [facility] Comment on above: Arrived Start: 10-28-2023 Influenza vaccination Influenza Vacc ine (#1) [facility] Start: 1955 Screening for malign ant neoplasm of colon [facility] Noninvasive colorect al cancer DNA and occult blood screening [Presence] in Stool Cologuard colon cancer screening Lab Routine Screening for colon cancer Ordered: 12/05/2023 [facility] Comment on above: Ordered: 12/05/2023 [facility] Immunizations Immunization Date Immunization Notes Care Provider Ulises chiang 11-16-2023 pneumococcal 20-renea nt conjugate vaccine REED NKANSAH-AMANKRA [facility] 06-09-2020 SARS-CoV-2 (COVID-19 ) mRNA-1273 vaccine REED NKANSAH-AMANKRA [facility] 05-12-2020 SARS-CoV-2 (COVID-19 ) mRNA-1273 vaccine REED NKANSAH-AMANKRA [facility] 11-28-2019 influenza virus vaccine, unspecified formulation REED NKANSAH-AMANKRA [facility] 11-28-2019 Influenza, injectabl e, Madin [place] Canine Kidney, preservative free, quadrivalent Makenna Fajardo NP Work Phone: [facility] Payers Date Payer Category Payer Medicare MEDICARE MEDICAR E PART B [id number] 2019-[place] [address] Medicare [id number] 2019 Medicare [id number] 2017 Unknown BCBS BCBS [id number] 2017-Present [phone] [address] [place] [address] [id number] 2017 Unknown [id number] 1955 Unknown [id number] 9 1954 Unknown [id number] 9 1954 Unknown [id number] 9 1954 Unknown [id number] 9 1954 Unknown [id number] 1954 Unknown [id number] Social History Date Type Detail Facility Start: 06-17-2023 End: 11-23-2023 Tobacco smoking status NHIS Never smoked tobacco (finding) [facility] Start: 1955 Sex Assigned At Male F [facility] Tobacco smoking status Never [facility] Start: 12-05-2023 Sex Assigned At Male F [facility] Tobacco smoking status [facility] Tobacco smoking consumption unknown [facility] Start: 1955 Sex assigned at Not on file [facility] Start: 12-05-2023 History of Social function [facility] Functional Status Date Assessment Result Facility 11-23-2023 Functional Status N/A [facility] History of Present illness Narrative 12-05-2023 Makenna Fajardo, ECOLOGY TEACHER - 12/05/2023 9:30 AM EDT Note Date & Type Note Facility 12-05-2023 History of Presen t illness Narrative Images from the original note were not included. Subjective Patient ID: Tricia Caldwell is a 68 y.o. male who presents for Medicare Annual Wellness Visit Initial (Pt BP today is 152/102). Here for wellness, has not had any issues. Review of Systems Constitutional: Negative. HENT: Negative. Eyes: Negative. Respiratory: Negative. Cardiovascular: Negative. Gastrointestinal: Negative. Genitourinary: Negative. Musculoskeletal: Negative. Skin: Negative. Neurological: Negative. Psychiatric/Behavioral: Negative. All other systems reviewed and are negative. Objective Physical Exam Vitals reviewed. Constitutional: Appearance: Normal appearance. HENT: Head: Normocephalic. Right Ear: Tympanic membrane normal. Left Ear: Tympanic membrane normal. Nose: Nose normal. Mouth/Throat: Mouth: Mucous membranes are moist. Pharynx: Oropharynx is clear. Eyes: Conjunctiva/sclera: Conjunctivae normal. Pupils: Pupils are equal, round, and reactive to light. Cardiovascular: Rate and Rhythm: Normal rate. Heart sounds: Normal heart sounds. Pulmonary: Effort: Pulmonary effort is normal. Breath sounds: Normal breath sounds. Abdominal: General: Bowel sounds are normal. Musculoskeletal: General: Normal range of motion. Cervical back: Neck supple. Skin: General: Skin is warm and dry. Neurological: General: No focal deficit present. Mental Status: He is alert. Psychiatric: Mood and Affect: Mood normal. Assessment/Plan Diagnoses and all orders for this visit: History of pulmonary embolism - CT chest pulmonary embolism w IV contrast; Future Await results of CT. Pt would like to stop the Eliquis is negative as it has been 6 months. Nocturia - PSA; Future Await PSA Medicare annual wellness visit, initial - Lipid panel; Future - PSA; Future - TSH W/REFLEX TO FT4; Future Reviewed all relevant preventative screenings with the patient in detail. Medicare Wellness form completed and will be scanned into patient's chart. All needed testing was ordered. Will continue with yearly Medicare Wellness exams. Screening for lipid disorders - Lipid panel; Future Await lab Screening for colon cancer - Cologuard colon cancer screening Await lab Hypothyroidism, unspecified type (CMS/HCC) - TSH W/REFLEX TO FT4; Future Pt will need his medication sent in once we get the lab back. Acquired hypothyroidism (CMS/HCC) Pt will need his medication sent in once we get the lab back Pure hypercholesterolemia (CMS/HCC) Await lab results Encounter for hepatitis C screening test for low risk patient - HEPATITIS C AB W/RFL RNS, PCR W/RFL GENOTYPE,LIPA; Future Await lab results Routine general medical examination at health care facility Reviewed all relevant preventative screenings with the patient in detail. Medicare Wellness form completed and will be scanned into patient's chart. All needed testing was ordered. Will continue with yearly Medicare Wellness exams. documented in this encounter [facility] Evaluation + Plan note 11-23-2023 Note Date & Type Note Facility 11-23-2023 Evaluation + Plan note Diagnostic Tests PendingUrinalysis with Micro 06/26/24Basic Metabolic Panel 11/23/[address] [facility] Discharge instructions 11-23-2023 Note Date & Type Note Facility 11-23-2023 Hospital Discharg e instructions Patient Education 11/23/2023 08:33:11 Dietary Guidelines to Help Prevent Kidney Stones Dietary Guidelines to Help Prevent Kidney Stones Kidney stones are deposits of minerals and salts that form inside your kidneys. Your risk of developing kidney stones may be greater depending on your diet, your lifestyle, the medicines you take, and whether you have certain medical conditions. Most people can lower their risks of developing kidney stones by following these dietary guidelines. Your dietitian may give you more specific instructions depending on your overall health and the type of kidney stones you tend to develop. What are tips for following this plan? Reading food labels Choose foods with no salt added or low-salt labels. Limit your salt (sodium) intake to less than 1,500 mg a day. Choose foods with calcium for each meal and snack. Try to eat about 300 mg of calcium at each meal. Foods that contain 200 500 mg of calcium a serving include: ?8 oz (237 mL) of milk, nwubirj-znzaqqhmkpwv-ubxlt milk, and calcium-fortifiedfruit juice. Calcium-fortified means that calcium has been added to these drinks. ?8 oz (237 mL) of kefir, yogurt, and soy yogurt. ?4 oz (114 g) of tofu. ?1 oz (28 g) of cheese. ?1 cup (150 g) of dried figs. ?1 cup (91 g) of cooked broccoli. ?One 3 oz (85 g) can of sardines or mackerel. Most people need 1,000 1,500 mg of calcium a day. Talk to your dietitian about how much calcium is recommended for you. Shopping Buy plenty of fresh fruits and vegetables. Most people do not need to avoid fruits and vegetables, even if these foods contain nutrients that may contribute to kidney stones. When shopping for convenience foods, choose: ?Whole pieces of fruit. ?Pre-made salads with dressing on the side. ?Low-fat fruit and yogurt smoothies. Avoid buying frozen meals or prepared deli foods. These can be high in sodium. Look for foods with live cultures, such as yogurt and kefir. Choose high-fiber grains, such as whole-wheat breads, oat bran, and wheat cereals. Cooking Do not add salt to food when cooking. Place a salt shaker on the table and allow each person to add their own salt to taste. Use vegetable protein, such as beans, textured vegetable protein (TVP), or tofu, instead of meat in pasta, casseroles, and soups. Meal planning Eat less salt, if told by your dietitian. To do this: ?Avoid eating processed or pre-made food. ?Avoid eating fast food. Eat less animal protein, including cheese, meat, poultry, or fish, if told by your dietitian. To do this: ?Limit the number of times you have meat, poultry, fish, or cheese each week. Eat a diet free of meat at least 2 days a week. ?Eat only one serving each day of meat, poultry, fish, or seafood. ?When you prepare animal proteins, cut pieces into small portion sizes. For most meat and fish, one serving is about the size of the palm of your hand. Eat at least five servings of fresh fruits and vegetables each day. To do this: ?Keep fruits and vegetables on hand for snacks. ?Eat one piece of fruit or a handful of berries with breakfast. ?Have a salad and fruit at lunch. ?Have two kinds of vegetables at dinner. You may be told to limit foods that are high in a substance called oxalate. These include: ?Spinach (cooked), rhubarb, beets, sweet potatoes, and Icelandic chard. ?Peanuts. ?Potato chips, trinidadian fries, and baked potatoes with skin on. ?Nuts and nut products. ?Chocolate. If you regularly take a diuretic medicine, make sure to eat at least 1 or 2 servings of fruits or vegetables that are high in potassium each day. These include: ?Avocado. ?Banana. ?[place], prune, carrot, or tomato juice. ?Baked potato. ?Cabbage. ?Beans and split peas. Lifestyle Drink enough fluid to keep your urine pale yellow. This is the most important thing you can do. Spread your fluid intake throughout the day. If you drink alcohol: ?Limit how much you have to: ?0 1 drink a day for women who are not . ?0 2 drinks a day for men. ?Know how much alcohol is in your drink. In the [place] one drink equals one 12 oz bottle of beer (355 mL), one 5 oz glass of wine (148 mL), or one 1 oz glass of hard liquor (44 mL). Lose weight if told by your health care provider. Work with your dietitian to find an eating plan and weight loss strategies that work best for you. General information Talk to your health care provider and dietitian about taking daily supplements. Depending on your health and the cause of your kidney stones, you may be told: ?Do not take high-dose supplements of vitamin C (1,000 mg a day or more). ?To take a calcium supplement. ?To take a daily probiotic supplement. ?To take other supplements such as magnesium, fish oil, or vitamin B6. Take yyeq-bgh-skhqfaf and prescription medicines only as told by your health care provider. These include supplements. What foods should I limit? Limit your intake of the following foods, or eat them as told by your dietitian. Vegetables Spinach. Rhubarb. Beets. Canned vegetables. Pickles. Olives. Baked potatoes with skin. Grains Wheat bran. Baked goods. Salted crackers. Cereals high in sugar. Meats and other proteins Nuts. Nut butters. Large portions of meat, poultry, or fish. Salted, precooked, or cured meats, such as sausages, meat loaves, and hot dogs. Dairy Cheeses. Beverages Regular soft drinks. Regular vegetable juice. Seasonings and condiments Seasoning blends with salt. Salad dressings. Soy sauce. Ketchup. Barbecue sauce. Other foods Canned soups. Canned pasta sauce. Casseroles. Pizza. Lasagna. Frozen meals. Potato chips. Luxembourgish fries. The items listed above may not be a complete list of foods and beverages you should limit. Contact a dietitian for more information. What foods should I avoid? Talk to your dietitian about specific foods you should avoid based on the type of kidney stones you have and your overall health. Fruits Grapefruit. The item listed above may not be a complete list of foods and beverages you should avoid. Contact a dietitian for more information. Summary Kidney stones are deposits of minerals and salts that form inside your kidneys. You can lower your risk of kidney stones by making changes to your diet. The most important thing you can do is drink enough fluid. Drink enough fluid to keep your urine pale yellow. Talk to your dietitian about how much calcium you should have each day, and eat less salt and animal protein as told by your dietitian. This information is not intended to replace advice given to you by your health care provider. Make sure you discuss any questions you have with your health care provider. Document Revised: 05/25/2022 Document Reviewed: 05/25/2022 [employer] Patient Education 2023 [employer]. Follow Up Care 11/20/2023 10:57:19 With:LAVINIA MERCADO, REED, URL Address: When: Unknown [facility] Clinical Note 11-23-2023 Note Date & Type Note Facility 11-23-2023 Note Patient Education Nephrology Dietary Guidelines to Help Prevent Kidney Stones Kidney stones are deposits of minerals and salts that form inside your kidneys. Your risk of developing kidney stones may be greater depending on your diet, your lifestyle, the medicines you take, and whether you have certain medical conditions. Most people can lower their risks of developing kidney stones by following these dietary guidelines. Your dietitian may give you more specific instructions depending on your overall health and the type of kidney stones you tend to develop. What are tips for following this plan? Reading food labels ? Choose foods with no salt added or low-salt labels. Limit your salt (sodium) intake to less than 1,500 mg a day. ? Choose foods with calcium for each meal and snack. Try to eat about 300 mg of calcium at each meal. Foods that contain 200?500 mg of calcium a serving include: ? 8 oz (237 mL) of milk, mzjufwo-cdkjzplababd-jdehw milk, and calcium-fortifiedfruit juice. Calcium-fortified means that calcium has been added to these drinks. ? 8 oz (237 mL) of kefir, yogurt, and soy yogurt. ? 4 oz (114 g) of tofu. ? 1 oz (28 g) of cheese. ? 1 cup (150 g) of dried figs. ? 1 cup (91 g) of cooked broccoli. ? One 3 oz (85 g) can of sardines or mackerel. Most people need 1,000?1,500 mg of calcium a day. Talk to your dietitian about how much calcium is recommended for you. Shopping ? Buy plenty of fresh fruits and vegetables. Most people do not need to avoid fruits and vegetables, even if these foods contain nutrients that may contribute to kidney stones. ? When shopping for convenience foods, choose: ? Whole pieces of fruit. ? Pre-made salads with dressing on the side. ? Low-fat fruit and yogurt smoothies. ? Avoid buying frozen meals or prepared deli foods. These can be high in sodium. ? Look for foods with live cultures, such as yogurt and kefir. ? Choose high-fiber grains, such as whole-wheat breads, oat bran, and wheat cereals. Cooking ? Do not add salt to food when cooking. Place a salt shaker on the table and allow each person to add their own salt to taste. ? Use vegetable protein, such as beans, textured vegetable protein (TVP), or tofu, instead of meat in pasta, casseroles, and soups. Meal planning ? Eat less salt, if told by your dietitian. To do this: ? Avoid eating processed or pre-made food. ? Avoid eating fast food. ? Eat less animal protein, including cheese, meat, poultry, or fish, if told by your dietitian. To do this: ? Limit the number of times you have meat, poultry, fish, or cheese each week. Eat a diet free of meat at least 2 days a week. ? Eat only one serving each day of meat, poultry, fish, or seafood. ? When you prepare animal proteins, cut pieces into small portion sizes. For most meat and fish, one serving is about the size of the palm of your hand. ? Eat at least five servings of fresh fruits and vegetables each day. To do this: ? Keep fruits and vegetables on hand for snacks. ? Eat one piece of fruit or a handful of berries with breakfast. ? Have a salad and fruit at lunch. ? Have two kinds of vegetables at dinner. ? You may be told to limit foods that are high in a substance called oxalate. These include: ? Spinach (cooked), rhubarb, beets, sweet potatoes, and Icelandic chard. ? Peanuts. ? Potato chips, trinidadian fries, and baked potatoes with skin on. ? Nuts and nut products. ? Chocolate. ? If you regularly take a diuretic medicine, make sure to eat at least 1 or 2 servings of fruits or vegetables that are high in potassium each day. These include: ? Avocado. ? Banana. ? [place], prune, carrot, or tomato juice. ? Baked potato. ? Cabbage. ? Beans and split peas. Lifestyle ? Drink enough fluid to keep your urine pale yellow. This is the most important thing you can do. Spread your fluid intake throughout the day. ? If you drink alcohol: ? Limit how much you have to: ? 0?1 drink a day for women who are not . ? 0?2 drinks a day for men. ? Know how much alcohol is in your drink. In the [place] one drink equals one 12 oz bottle of beer (355 mL), one 5 oz glass of wine (148 mL), or one 1? oz glass of hard liquor (44 mL). ? Lose weight if told by your health care provider. Work with your dietitian to find an eating plan and weight loss strategies that work best for you. General information ? Talk to your health care provider and dietitian about taking daily supplements. Depending on your health and the cause of your kidney stones, you may be told: ? Do not take high-dose supplements of vitamin C (1,000 mg a day or more). ? To take a calcium supplement. ? To take a daily probiotic supplement. ? To take other supplements such as magnesium, fish oil, or vitamin B6. ? Take kura-git-zecxdif and prescription medicines only as told by your health care provider. These include suppleme (more content not included)... [facility] Evaluation + Plan note Note Date & Type Note Facility Evaluation + Plan note No data available for this section [facility] Evaluation note Note Date & Type Note Facility Evaluation note No assessment information availa [facility] Work Phone: Evaluation note Note Date & Type Note Facility Evaluation note Diagnosis Medicare annual wellness visit, initial- Primary Nocturia Screening for lipid disorders Screening for colon cancer Special screening for malignant neoplasms, colon Hypothyroidism, unspecified type (CMS/HCC) Acquired hypothyroidism (CMS/HCC) Unspecified hypothyroidism History of pulmonary embolism Personal history of venous thrombosis and embolism Pure hypercholesterolemia (CMS/HCC) Pure hypercholesterolemia Encounter for hepatitis C screening test for low risk patient Routine general medical examination at health care facility Routine general medical examination at a health care facility documented in this encounter [facility] Discharge instructions Note Date & Type Note Facility Hospital Discharge instructions No data available for this section [facility] Progress note Note Date & Type Note Facility Progress note No data available for this section [facility] Latricia Summary Purpose Family History No Family History Records Found No data available for this section No data available for this section No Family History Records FoundNo Family History Records FoundNo Family History Records Found Advance Directives No Advanced Directives Records Found Advance Directive Response Recorded Date/ Time Advance Directives No June 16 024 11:57am Chief Complaint and Reason for Visit Chief Complaint Cough, Congestion, F ever, Bodyache Reason for Referral Specialty Diagnoses / Procedures Referred By Contac t Referred To Contact Diagnoses History of pulmonary embolism Procedures CT chest pulmonary embolism w IV contrast Makenna Fajardo, ECOLOGY TEACHER [facility] [address] [place] [address] [facility] [address] [place] [address] Phone: [phone] Referral ID Status Reason Start Date Expiration Date V isits Requested Visits Authorized [id number] Pending Review 12/05/2023 06/02/2024 1 1 Additional Source Comments (unrecognized sect ion and content) No Status Records FoundNo Status Records FoundNo Status Records FoundNo Status Records Found INFORMATION SOURCE (unrecogn ized section and content) DATE CREATED AUTHOR 08/20/2017 [facility] DATE CREATED AUTHOR AUTHOR'S ORGANIZ ATION 12/01/2023 [facility] DATE CREATED AUTHOR AUTHOR'S ORGANIZ ATION 12/07/2023 [facility] DATE CREATED AUTHOR AUTHOR'S ORGANIZ ATION 12/12/2023 [facility] Care Teams (unrecognized sec tion and content) Team Status: Active Member Role Status Dates Víctor Magdaleno MD Primary Care Provider Active Team Status: Inactive Member Role Status Dates Carito Velasquez APRN Attending Provider Active Start: June 17, 2023 End: June 17, 2023 Víctor Magdaleno MD Primary Care Provider Active S tart: June 17, 2023 End: June 17, 2023 Vertical Lathe Operator Relationship Specialty Start Date End Date Víctor Magdaleno MD [address] [facility] [address] [place] [address] PCP - General Family Medicine 07/04/22 Laure Rocha, ECOLOGY TEACHER [address] [facility] [address] [place] [address] PCP - [employer] 08/27/23 Vertical Lathe Operator Relationship Specialty Start Date End Date Víctor Magdaleno MD [address] [facility] [address] [place] [address] PCP - General Family Medicine 07/04/22 Laure Rcoha NP [address] [facility] [address] [place] [address] PCP - [employer] 08/27/23 Goals (unrecognized section and content) Goals may be documented in a n alternate section No data available for this section No data available for this section Reason for Visit (unrecogniz ed section and content) Reason Comments Medicare Annual Wellness Visit Initial P t BP today is 152/102 FOR RECORDS PERTAINING TO PATIENTS WHO ARE [...] BE BASED ON THE PRIMARY CLINICAL RECORDS. [facility]. provides no warranty or guarantee of the accuracy or completeness of information in this document.
[2023-12-18 07:33] LABS: Estimated GFR (African America 59 (>=60 mL/min/1.73m^2); Estimated GFR (Non-African Ame 48 (>=60 mL/min/1.73m^2)
== END 2023-12-18 07:17 | disposition home or self-care (01) ==
LOC: LAB 07:17
PROVIDERS: PCP Family Medicine; Visit Provider Nurse Practitioner Family
DX: R91.8 Other nonspecific abnormal finding of lung field (principal); Z86.711 Personal history of pulmonary embolism; N17.9 Acute kidney failure, unspecified
CPT/HCPCS: 36415; 71275; 82565; Q9967

== ENCOUNTER 2025-01-06 07:45 | Outpatient (OUT) | payer MEDICARE, OTHER, SELFPAY ==
--- OUTSIDE RECORDS SUMMARY | 2024-12-30 09:00 | XMS_ITS | Encounter Summary ---
Author Organization [facility] Address [address] [place] [address] Care Team Providers Care Flush Tester Name Role Phone Víctor Field MD Primary Care Provider [phone] Reason for Visit * ReasonCommentsMedicare Annual Wellness Visit SubsequentQuestions on lab work for his TSH Encounter Details DateTypeDepartmentCare Team (Latest Contact Info)Hhsyoddtfym76/04/2025 9:00 AM ESTOffice Visit [facility] [address] [place] [id number] Víctor Field MD [address] [facility] [address] [place] [address] Routine general medical examination at health care facility (Primary Dx); Acquired hypothyroidism; Stage 3a chronic kidney disease (CKD) (CMS-HCC); Pulmonary embolus, left (HCC); Abnormal fasting glucose Social History Tobacco UseTypesPacks/DayYears UsedDateSmoking Tobacco: NeverSmokeless Tobacco: Never Tobacco Cessation:Counseling Given: Not Answered PHQ-2AnswerDate RecordedPatient Health Questionnaire-2 Fylqs80503/01/2024Sex and Gender InformationValueDate RecordedSex Assigned at BirthNot on fileLegal Sex Male05/10/2022 6:38 PM EDTGender IdentityNot on fileSexual OrientationNot on filedocumented as of this encounter Last Filed Vital Signs Vital SignReadingTime TakenCommentsBlood Zgmaztsn961/8211 9:09 AM EST Qrauq810112/30/2024 9:09 AM ESTTemperature--Respiratory Rate--Oxygen Saturation 100%12/30/2024 9:09 AM ESTInhaled Oxygen Concentration--Dgesgu86.2 kg (212 lb) 12/30/2024 9:09 AM KNEDfzovd374 cm (6' 2 )12/30/2024 9:09 AM ESTBody Mass Index 27.22103/01/2024 9:09 AM ESTdocumented in this encounter Functional Status * Over the past 2 weeks, how often have you been bothered by any of the following problems?QuestionAnswerDate of AssessmentAuthorLittle interest or pleasure in doing thingsNot at all12/30/2024 9:00 AM Belem De Leon MA Feeling down, depressed, or hopelessNot at all12/30/2024 9:00 AM Belem De Leon MAPatient Health Questionnaire-2 Eltmc26503/01/2024 9:00 AM Belem De Leon MA documented as of this encounter Progress Notes * Víctor Field MD - 12/30/2024 9:26 AM ESTAssociated Problem(s): Abnormal fasting glucose Normal 2 weeks ago * Víctor Field MD - 12/30/2024 9:23 AM ESTAssociated Problem(s): Pulmonary embolus, left (HCC) On Anticoagulation Watch for bleeding Reviewed CT scan showing changes within the lungs during Hospitalization CT Scan of 11/2023 resolved New clear etiology No Family History * Víctor Field MD - 12/30/2024 9:21 AM ESTAssociated Problem(s): Stage 3a chronic kidney disease (CKD) (CMS-HCC) Avoid NSAIDs such as Ibuprofen, Motrin, Naprosyn. Increase fluids. * Víctor Field MD - 12/30/2024 9:19 AM ESTAssociated Problem(s): Routine general medical examination at health care facility Colonoscopy every 10 years or Cologuard every 3 years ages 50-75 Flu Vaccine yearly Pneumovax and Prevnar Mammo yearly for women and PSA yearly for men Labs/Screening yearly to rule out Diabetes, Chronic Kidney disease and liver disease Hepatitis Screen forat risk populations Shingles vaccine after65 if indicated Tetanus Vaccine every 10 years Lipids yearly under the age of 75 If Smoking history: one time CT scan of chest and Ultrasound of Aorta to screen for Anuerysm * Víctor Field MD - 12/30/2024 9:00 AM EST Images from the original note were not included. Subjective : Chief Complaint: Tricia Caldwell is an 69 y.o. male here for an annual wellness visit. 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 Current Outpatient Medications Medication Sig Dispense Refill apixaban (Eliquis) 5 MG tablet Take 1 tablet (5 mg) by mouth in the morning and 1 tablet (5 mg) before bedtime. 200 tablet 2 levothyroxine (Synthroid, Levoxyl) 100 MCG tablet Take 1 tablet (100 mcg) by mouth in the morning. 100 tablet 3 No current facility-administered medications for this visit. Review of Systems Constitutional: Negative for chills, fatigue, fever and unexpected weight change. Respiratory: Negative for cough. Cardiovascular: Negative for chest pain. Gastrointestinal: Negative for abdominal pain, blood in stool, constipation, diarrhea, nausea and vomiting. Genitourinary: Negative for dysuria, enuresis, frequency and hematuria. Musculoskeletal: Negative for back pain and joint swelling. Neurological: Negative for dizziness, tremors, syncope, facial asymmetry, speech difficulty, light-headedness and headaches. Psychiatric/Behavioral: Negative for agitation, behavioral problems, confusion and dysphoric mood. The patient is not nervous/anxious. List of current healthcare providers: Patient Care Team: Víctor Field MD as PCP - General (Family Medicine) Medicare Annual Visit Over the past 2 weeks, how often have you been bothered by any of the following problems? Little interest or pleasure in doing things: Not at all Feeling down, depressed, or hopeless: Not at all Patient Health Questionnaire-2 Score: 0 Ruben Fall Risk History of Falling, Immediate or Within 3 Months: No Health Risk Assessment Form Do you need help eating, bathing, using the toilet, dressing, or getting around your home?: No Can you prepare your own meals?: Yes Can you do your own housework without help?: Yes Can you shop for groceries or clothes without help?: Yes Do you exercise for about 20 minutes 3 or more days a week?: Yes How confident are you that you can control and manage most of your health problems?: Very confident Can you mange your money, credit cards and accounts, pay bills and taxes?: Yes Vision Screening: Yes, no gross abnormalities Hearing Screening: Yes, no gross abnormalities Cognitive Screening Self Assessment: No overt cognitive deficiency is apparent by direct observation Three Word Registration: Banana, Bibo, Chair Clock Drawing: Normal Clock - 2 Three Word Recall: All 3 words correct - 3 Total Score (0-5 Points): 5 Pain Assessment Pain Score: 0 - No pain Advance Care Planning Do you have a living will?: No Do you have a medical power of attorney general?: No Objective : BP 138/82 Pulse 61 Ht 6' 2 Wt 212 lb SpO2 100% BMI 27.22 kg/m?? No results found. Physical Exam Vitals reviewed. Constitutional: Appearance: Normal appearance. HENT: Head: Normocephalic. Neck: Vascular: No carotid bruit. Cardiovascular: Rate and Rhythm: Normal rate and regular rhythm. Pulses: Normal pulses. Pulmonary: Effort: Pulmonary effort is normal. Breath sounds: Normal breath sounds. Neurological: General: No focal deficit present. Mental Status: He is alert and oriented to person, place, and time. Psychiatric: Mood and Affect: Mood normal. Assessment/Plan : The following health maintenance schedule was reviewed with the patient and provided in printed form in the after visit summary: Health Maintenance Topic Date Due Colorectal Cancer Screening Never done Influenza Vaccine (1) 10/27/2024 Pneumococcal Vaccine: 65+ Years Completed COVID-19 Vaccine Discontinued Advance Care Planning Patient willing to discuss ACP. If in place, renew periodically. If not in place, recommend obtaining ACP. Assessment/Plan Problem List Items Addressed This Visit Hypothyroidism Relevant Medications levothyroxine (Synthroid, Levoxyl) 100 MCG tablet Routine general medical examination at health care facility - Primary Colonoscopy every 10 years or Cologuard every 3 years ages 50-75 Flu Vaccine yearly Pneumovax and Prevnar Mammo yearly for women and PSA yearly for men Labs/Screening yearly to rule out Diabetes, Chronic Kidney disease and liver disease Hepatitis Screen forat risk populations Shingles vaccine after65 if indicated Tetanus Vaccine every 10 years Lipids yearly under the age of 75 If Smoking history: one time CT scan of chest and Ultrasound of Aorta to screen for Anuerysm Stage 3a chronic kidney disease (CKD) (CMS-HCC) Avoid NSAIDs such as Ibuprofen, Motrin, Naprosyn. Increase fluids. Pulmonary embolus, left (HCC) On Anticoagulation Watch for bleeding Reviewed CT scan showing changes within the lungs during Hospitalization CT Scan of 11/2023 resolved New clear etiology No Family History Relevant Orders CT chest w and wo IV contrast Abnormal fasting glucose Normal 2 weeks ago Orders Placed This Encounter Procedures CT chest w and wo IV contrast Standing Status: Future Expected Date: 12/30/2024 Expiration Date: 12/30/2025 Reason for exam:: Previous Atelectasis and PE Electronically signed by Víctor Field MD on December 30, 2024 documented in this encounter Miscellaneous Notes * Addendum Note - Belem Vale MA - 12/30/2024 9:00 AM ESTAddended by: BELEM VALE on: 12/30/2024 09:54 AM Modules accepted: Orders documented in this encounter Plan of Treatment Not on file documented as of this encounter Visit Diagnoses Diagnosis Routine general medical examination at health care facility- Primary Routine general medical examination at a health care facility Acquired hypothyroidism Unspecified hypothyroidism Stage 3a chronic kidney disease (CKD) (CMS-HCC) Pulmonary embolus, left (HCC) Other pulmonary embolism and infarction Abnormal fasting glucose documented in this encounter Care Teams Team MemberRelationshipSpecialtyStart DateEnd Date Víctor Field MD [address] [place] [address] [address] [place] [address] PCP - GeneralFamily Medicine07/04/22documented as of this encounter
--- OUTSIDE RECORDS SUMMARY | 2025-01-06 07:50 | XMS_ITS | Clinical Summary ---
Author Organization [facility] Address [address] [place] [address] Care Team Providers Care Archives Technician Name Role Phone Pcp, No Unavailable Unavailable Víctor Field MD Primary Care Provider [phone] Allergies Active AllergyReactionsCriticalityNoted DateCommentsAspirinSwellingHigh 03/29/2017 Throat and eyes swell VrscjSanlCev63/01/3694IoucatobDaobQgu68/01/0587IyekrudoowVyzdfajIfrh22/01/2018 Medications MedicationSigDispense QuantityRefillsLast FilledStart DateEnd DateStatus levothyroxine (SYNTHROID) 100 mcg tablet take 1 tablet by mouth daily EXCEPT SUNDAY AND SUNDAY TAKE 1/2 TABLET0 03/12/2017Active Family History Medical HistoryRelationCommentsHypertensionBrotherThyroidBrothersleep apnea BrotherThyroidMotherHypothyroidismRelationStatusCommentsBrotherMother Social History Tobacco UseTypesPacks/DayYears UsedDateSmoking Tobacco: NeverSmokeless Tobacco: NeverArea Deprivation IndexAnswerDate RecordedNational Score (1-100), lower number is lower riskNot on file02/02/2020State Score (1-10), lower number is lower riskNot on file02/02/2020Data from: https://www.neighborhoodatlas.medicine.[facility].edu/. Last address used for calculationNot on file02/02/2020Sex and Gender InformationValueDate RecordedSex Assigned at BirthNot on fileLegal HnpWlzg38/02/2012 9:02 AM ESTGender Identity Not on fileSexual OrientationNot on file Last Filed Vital Signs Vital SignReadingTime TakenCommentsBlood Vjzilqsu838/9203/29/2017 11:02 AM EST Hpwsi7163/02/2017 11:02 AM ESTTemperature--Respiratory Ijgm314203/29/2017 11:02 AM ESTOxygen Saturation--Inhaled Oxygen Concentration--Ckkejd63.2 kg (218 lb 12.8 oz)03/29/2017 11:02 AM WVEUxlgjw589 cm (6' 2 )03/29/2017 11:02 AM ESTBody Mass Index28.0903/29/2017 11:02 AM EST Plan of Treatment Health MaintenanceDue DateLast DoneCommentsAnxiety Vzzvbvebe51/30/1972Depression Zwtwhbeud55/30/1972Hepatitis C Uqcbupylm91/30/1972DTaP,Tdap,Td Vaccine (1 - Tdap)1973Lipid Geeddfmbb60/30/1989CT Qkllnjagcdrw01/30/1999Cologuard (FIT-DNA)02/24/19995438Dfkkwviikrt61/30/1999Colorectal Cancer Lclxzxraf50/30/1999 Diabetes Kgtqqdbul22/30/1999Fecal Occult Blood02/24/19991839Ayzastmittrxy30/30/1999 Pneumococcal Vaccine: 50+ (1 of 1 - PCV)02/25/2004Shingrix Vaccine (1 of 2) 02/25/2004Advance Directive Jhhbibmvky61/01/2025ovid-19 Vaccine (1 - 2024- season)2024Influenza Vaccine (#1)RSV Vaccine (1 - 1- dose 75+ series)2029 Insurance Care Teams Team MemberRelationshipSpecialtyStart DateEnd Date [place], Rugen Mabalay, MD [address] [place] [address] PCP - GeneralFami Medicine11/03/16 Pcp, No Family Medicine10/12/16
--- OUTSIDE RECORDS SUMMARY | 2025-01-06 07:50 | XMS_ITS | Encounter Summary ---
Author Organization [facility] Address [address] [place] [address] Care Team Providers Care Stone Rigger Name Role Phone Víctor Magdaleno MD Primary Care Provider Laure Johnson NP Unavailable Encounter Details DateTypeDepartmentCare Team (Latest Contact Info)Onpesrrzcoi04/23/2024linisync Result Encounter [facility] External Department Unsolicited Makenna Vidales, POWER LINEMAN TECHNICIAN [address] [facility] [address] [place] [address] Social History Tobacco UseTypesPacks/DayYears UsedDateSmoking Tobacco: Never AssessedPHQ-2 AnswerDate RecordedPatient Health Questionnaire-2 Yonep733Sex and Gender InformationValueDate RecordedSex Assigned at BirthNot on fileLegal SexMale 05/10/2022 6:38 PM EDTGender IdentityNot on fileSexual OrientationNot on file documented as of this encounter Plan of Treatment Not on file documented as of this encounter Procedures Procedure NamePriorityDate/TimeAssociated DiagnosisCommentsCT ANGIOGRAM CHEST 12/19/2023 6:42 AM EDT documented in this encounter Results * CT angiogram chest (12/19/2023 6:42 AM EDT)Anatomical RegionLateralityModality Body, ChestComputed TomographySpecimen (Source)Anatomical Location / LateralityCollection Method / VolumeCollection TimeReceived Time12/19/2023 6:42 AM EDT Narrative 12/19/2023 6:45 AM EDT [facility] ?[address] ? [place] [address] ? CT Scan Report ? Signed ? Patient: CALDWELL,FIONA F ? MR#: [id number] ?? : 1955 ?Acct:[id number] ?? Age/Sex: 68 / M ?ADM Date: 10/22/24 ?? Loc: LAB ? Attending Dr: MAKENNA VIDALES ? Ordering Physician: MAKENNA VIDALES ?? Date of Service: 12/18/23 ?? Procedure(s): CT angio chest ?? Accession Number(s): [id number] ? cc: RASTA,VÍCTOR ? [facility] ? [address] ? [place] [address] ? Patient Name: ?? FIONA CALDWELL ? MRN: [facility]:[id number] ? date: 1955 ?Sex: M ?? Assigned Patient Location: LAB ?? Current Patient Location: ? Accession/Order Number: [id number] ?? Exam Date: 12/18/2023 ??07:45 ?Report Date: 12/19/2023 ??06:42 ? At the request of: ?? MAKENNA ??SOBEIDA ? Procedure: ??CT angio chest ? EXAMINATION: CT angio chest ? HISTORY: History of pulmonary embolism Z86.711 ? COMPARISON: CTA chest 06/21/2023 ? TECHNIQUE: Multi-planar CT images were created with IV contrast. Axial, ?? Coronal, and Sagittal images. Dose reduction techniques were achieved by using ? automated exposure control and/or adjustment of mA and/or kV according to ?? patient size and/or use of iterative reconstruction technique. 3-D ?? reconstruction was performed on a separate workstation. ? FINDINGS: ?? VASCULATURE: No pulmonary embolism or abnormal opacity. ?? LUNGS: Geographic shaped 2.1 cm opacity within right posterior costophrenic ?? angle and 0.8 cm within left posterior costophrenic angle. Mild haziness of ?? the ?? lower lobe parenchyma bilaterally suggestive of infiltrates or atelectasis. ?? PLEURA: No mass, effusion, or pneumothorax. ?? MATILDA: No mass or adenopathy. ?? MEDIASTINUM: No mass or adenopathy. ?? CARDIAC: No enlargement, pericardial effusion, or pericardial thickening. ?? AORTA: No aneurysm or dissection. ?? CHEST WALL: No mass or axillary adenopathy. ?? BONES: No bone lesion or fracture. ?? LIMITED ABDOMEN: No suspicious findings. Limited images of the upper abdomen. ?? OTHER: Negative. ? CT/CT angio chest ?? IMPRESSION: ? 1. Clearing of previously seen pulmonary emboli. ?? 2. Geographic shaped opacity within the posterior costophrenic angle on the ?? right and left, with clearing of the rest of the previously seen dense ?? infiltrates/consolidation. This may represent residual ?? infiltrates/consolidation or masses. Consider follow-up CT chest in 1 month ?? with full lung expansion at time of imaging to document clearing versus ?? stability. ? Electronically authenticated by: CARLTON ??RAMANDEEP ?? Date: 12/19/2023 ??06:42 ? Dictated By: ?Carlton Kang M.D. ? Signed By: ?12/19/2345 ? DD/ 0642 ? TD/TT: ? Acidizer Water Well: Procedure Note Radiology, Radiologist, MD - 12/19/[address] [place] [id number] [address] Scan Report Signed Patient: FIONA CALDWELL FMR#: [id number] : 1955cct:[id number] Age/Sex: 68 / MADM Date: 12/18/23 Loc: LAB Attending Dr: MAKENNA VIDALES Ordering Physician: MAKENNA VIDALES Date of Service: 12/18/23 Procedure(s): CT angio chest Accession Number(s): [id number] cc: VÍCTOR MAGDALENO [address] [address] Patient Name: FIONA CALDWELL MRN: [facility]:[id number] date: 1955 Sex: M Assigned Patient Location: LAB Current Patient Location: Accession/Order Number: [id number] Exam Date: 12/18/2023 07:45 Report Date: 12/19/2023 06:42 At the request of: MAKENNA VIDALES Procedure: CT angio chest EXAMINATION: CT angio chest HISTORY: History of pulmonary embolism Z86.711 COMPARISON: CTA chest 06/21/2023 TECHNIQUE: Multi-planar CT images were created with IV contrast. Axial, Coronal, and Sagittal images. Dose reduction techniques were achieved byusing automated exposure control and/or adjustment of mA and/or kV according to patient size and/or use of iterative reconstruction technique. 3-D reconstruction was performed on a separate workstation. FINDINGS: VASCULATURE: No pulmonary embolism or abnormal opacity. LUNGS: Geographic shaped 2.1 cm opacity within right posteriorcostophrenic angle and 0.8 cm within left posterior costophrenic angle. Mild hazinessof the lower lobe parenchyma bilaterally suggestive of infiltrates oratelectasis. PLEURA: No mass, effusion, or pneumothorax. MATILDA: No mass or adenopathy. MEDIASTINUM: No mass or adenopathy. CARDIAC: No enlargement, pericardial effusion, or pericardial thickening. AORTA: No aneurysm or dissection. CHEST WALL: No mass or axillary adenopathy. BONES: No bone lesion or fracture. LIMITED ABDOMEN: No suspicious findings. Limited images of the upperabdomen. OTHER: Negative. CT/CT angio chest IMPRESSION: 1. Clearing of previously seen pulmonary emboli. 2. Geographic shaped opacity within the posterior costophrenic angle onthe right and left, with clearing of the rest of the previously seen dense infiltrates/consolidation. This may represent residual infiltrates/consolidation or masses. Consider follow-up CT chest in 1month with full lung expansion at time of imaging to document clearing versus stability. Electronically authenticated by: CARLTON KANG Date: 12/19/2023 06:42 Dictated By: Carlton Kang M.D. Signed By:12/19/2345 DD/ TD/TT: Acidizer Water Well: Authorizing ProviderResult TypeResult StatusMakenna Vidales NPIMG CT PROCEDURES Final Result documented in this encounter Visit Diagnoses Not on filedocumented in this encounter Care Teams Team MemberRelationshipSpecialtyStart DateEnd Date Víctor Magdaleno MD [address] [address] PCP - GeneralFamily Medicine07/04/22 Laure Johnson NP [address] [address] PCP - Gilliam Commercial7//01/20documented as of this encounter
--- OUTSIDE RECORDS SUMMARY | 2025-01-06 07:50 | XMS_ITS | Clinical Summary ---
Author Organization [facility] Address [address], [address] [place] [address] Care Team Providers Care Neuropsychologist Name Role Phone No, Pcp Primary Care Provider Unavailabl e Allergies Active AllergyReactionsCriticalityNoted DateCommentsAspirinSwellingHigh 03/29/2017 Throat and eyes swell NaamtLxowKwq22/01/6405RdkruiiiRlprGxq91/01/2018 Medications MedicationSigDispense QuantityRefillsLast FilledStart DateEnd DateStatus predniSONE (DELTASONE) 20 MG tablet Take 3 tablets by mouth 3 times siqac884Active levothyroxine (SYNTHROID) 100 MCG tablet Take 1 tablet by mouth daily03/12/2017Active hydrocortisone (V-R HYDROCORTISONE/ALOE) 0.5 % ointment Apply topically 2 times daily. 1 Tube Active Active Problems No known active problems Social History Tobacco UseTypesPacks/DayYears UsedDateSmoking Tobacco: NeverSmokeless Tobacco: Never Tobacco Cessation:Counseling Given: Not Answered Sex and Gender InformationValueDate RecordedSex Assigned at BirthNot on file Legal TiaPcqe4304/07/2012 4:16 PM ESTGender IdentityNot on fileSexual Orientation Not on file Last Filed Vital Signs Vital SignReadingTime TakenCommentsBlood Ckisdgru877/9801 11:39 AM EST Slqoc229103/06/2018 11:39 AM ESTTemperature--Respiratory Rate--Oxygen Saturation-- Inhaled Oxygen Concentration--Csyvqr96.3 kg (210 lb)06/11/2023 9:15 AM EDTHeight 185.4 cm (6' 1 )06/11/2023 9:15 AM EDTBody Mass Index27.7104 9:15 AM EDT Plan of Treatment Health MaintenanceDue DateLast DoneCommentsDepression Cxivjp8702/24/1966Hepatitis C xhbrns5902/25/1972DTaP/Tdap/Td vaccine (1 - Tdap)02/24/19738601Kqebbz26/30/1994 Xmocrpfddvi64/30/1999Colorectal Cancer Wzgkbx5002/24/1999FIT/FOBT: Average risk 1999Fecal-DNA (Cologuard): Average risk1999Sigmoidoscopy/CT chtdmajzxqdp29/30/1999Pneumococcal 50+ years Vaccine (1 of 1 - PCV)02/25/2004 Shingles vaccine (1 of 2)02/25/2004Annual Wellness Visit (Medicare)04/30/2023Flu vaccine (#1)COVID-19 Vaccine ( season)2024 Respiratory Syncytial Virus (RSV) or age 60 yrs+ (1 - 1-dose 75+ series)2029Hepatitis A vaccineAged OutNo longer eligible based on patient's age to complete this topicHepatitis B vaccineAged OutNo longer eligible based on patient's age to complete this topicHib vaccineAged OutNo longer eligible based on patient's age to complete this topicMeningococcal (ACWY) vaccineAged OutNo longer eligible based on patient's age to complete this topicMeningococcal B vaccineAged OutNo longer eligible based on patient's age to complete this topicPolio vaccineAged OutNo longer eligible based on patient's age to complete this topic Insurance Care Teams Team MemberRelationshipSpecialtyStart DateEnd Date No, Pcp PCP - General04/30/23
--- OUTSIDE RECORDS SUMMARY | 2025-01-06 07:50 | XMS_ITS | Encounter Summary ---
Author Organization [facility] Address [address] [place] [address] Care Team Providers Care Sanding Line Operator Name Role Phone Víctor Magdaleno MD Primary Care Provider [phone] Laure Johnson DYE COLORIST DYER Unavailable Encounter Details DateTypeDepartmentCare Team (Latest Contact Info)Fphtyoqutzy94/09/2024linisync Result Encounter [facility] External [facility] Unsolicited Provider, Generic External Data Social History Tobacco UseTypesPacks/DayYears UsedDateSmoking Tobacco: Never AssessedPHQ-2 AnswerDate RecordedPatient Health Questionnaire-2 Vpcso143Sex and Gender InformationValueDate RecordedSex Assigned at BirthNot on fileLegal SexMale 05/10/2022 6:38 PM EDTGender IdentityNot on fileSexual OrientationNot on file documented as of this encounter Functional Status * Over the past 2 weeks, how often have you been bothered by any of the following problems?QuestionAnswerDate of AssessmentAuthorLittle interest or pleasure in doing thingsNot at all12/05/2023 9:00 AM Belem Jaime MA Feeling down, depressed, or hopelessNot at all12/05/2023 9:00 AM Belem Jaime MAPatient Health Questionnaire-2 Deome144 9:00 AM Belem Jaime MA documented as of this encounter Plan of Treatment Not on file documented as of this encounter Procedures Procedure NamePriorityDate/TimeAssociated DiagnosisCommentsUS RENAL BI11/05/2023 7:39 AM EDT documented in this encounter Results * US RENAL BI (11/05/2023 7:39 AM EDT)Anatomical RegionLateralityModalityOther Specimen (Source)Anatomical Location / LateralityCollection Method / Volume Collection TimeReceived Time11/05/2023 7:39 AM EDT Narrative 11/05/2023 7:42 AM EDT [facility] ?[address] ? [place] [address] ? Ultrasound Report ? Signed ? Patient: CALDWELL,FIONA F ? MR#: [id number] ?? : 1955 ?Acct:[id number] ?? Age/Sex: 68 / M ?ADM Date: 11/02/23 ?? Loc: RAD ? Attending Dr: Gladis Bright M.D. ? Ordering Physician: Gladis Bright M.D. ?? Date of Service: 11/02/23 ?? Procedure(s): US renal BI ?? Accession Number(s): [id number] ? cc: VÍCTOR MAGDALENO ; Gladis Bright M.D. ? [facility] ? [address] ? [place] [address] ? Patient Name: ?? FIONA CALDWELL ? MRN: [facility]:[id number] ? date: 1955 ?Sex: M ?? Assigned Patient Location: RAD ?? Current Patient Location: ? Accession/Order Number: [id number] ?? Exam Date: 11/02/2023 ??18:38 ?Report Date: 11/05/2023 ??07:39 ? At the request of: ?? GLADIS ??KAILA ? Procedure: ??US renal BI ? EXAMINATION: US renal BI ? HISTORY: Kidney stone ? COMPARISON: No relevant comparison available. ? TECHNIQUE: Ultrasound examination was performed of the bladder. ? FINDINGS: ? Right Kidney: Normal in size, contour and echotexture. The cortex measures 1.5 ? cm. No solid mass, hydronephrosis or obstructing nephrolithiasis. ?? Height: 4.33 cm Length: 10.64 cm Width: 4.88 cm ? Left Kidney: Normal in size, contour and echotexture. The cortex measures 1.9 ?? cm. No solid mass, hydronephrosis or obstructing nephrolithiasis. 5 mm ?? nonobstructing nephrolith lower pole ?? Height: 5.31 cm Length: 11.38 cm Width: 5.93 cm ? Urinary bladder measures 8.4 x 9.2 x 7.6 cm a volume of 111 mL. ? The prostate gland measures 4.9 x 3.0 x 4.6 cm. Heterogeneous echotexture with ? no focal mass ? US/US renal BI ?? IMPRESSION: ? 5 mm nonobstructing left nephrolith ? Electronically authenticated by: CAPRICE ??HAMMAD ?? Date: 11/05/2023 ??07:39 ? Dictated By: ?Caprice Cueva M.D. ? Signed By: ?11/05/23741 ? DD/ 0739 ? TD/TT: ? Restaurant Assistant: Procedure Note Radiology, Radiologist, MD - 11/05/2023 [place] [address] Ultrasound Report Signed Patient: FIONA CALDWELL FMR#: [id number] : 1955cct:[id number] Age/Sex: 68 / MADM Date: 11/02/23 Loc: RAD Attending Dr: Gladis Bright M.D. Ordering Physician: Gladis Bright M.D. Date of Service: 11/02/23 Procedure(s): US renal BI Accession Number(s): [id number] cc: VÍCTOR MAGDALENO ; Gladis Bright M.D. [facility] [place] [id number] Patient Name: FIONA CALDWELL MRN: [id number] date: 1955 Sex: M Assigned Patient Location: [facility] Current Patient Location: Accession/Order Number: [id number] Exam Date: 11/02/2023 18:38 Report Date: 11/05/2023 07:39 At the request of: GLADIS BRIGHT Procedure: US renal BI EXAMINATION: US renal BI HISTORY: Kidney stone COMPARISON: No relevant comparison available. TECHNIQUE: Ultrasound examination was performed of the bladder. FINDINGS: Right Kidney: Normal in size, contour and echotexture. The cortex measures1.5 cm. No solid mass, hydronephrosis or obstructing nephrolithiasis. Height: 4.33 cm Length: 10.64 cm Width: 4.88 cm Left Kidney: Normal in size, contour and echotexture. The cortex measures1.9 cm. No solid mass, hydronephrosis or obstructing nephrolithiasis. 5 mm nonobstructing nephrolith lower pole Height: 5.31 cm Length: 11.38 cm Width: 5.93 cm Urinary bladder measures 8.4 x 9.2 x 7.6 cm a volume of 111 mL. The prostate gland measures 4.9 x 3.0 x 4.6 cm. Heterogeneous echotexturewith no focal mass US/US renal BI IMPRESSION: 5 mm nonobstructing left nephrolith Electronically authenticated by: CAPRICE CUEVA Date: 11/05/2023 07:39 Dictated By: Caprice Cueva M.D. Signed By:11/05/2342 DD/ 8 TD/TT: Restaurant Assistant: Authorizing ProviderResult TypeResult StatusGeneric External Data Provider [facility] IMAGINGFinal Result documented in this encounter Visit Diagnoses Not on filedocumented in this encounter Care Teams Team MemberRelationshipSpecialtyStart DateEnd Date Víctor Magdaleno MD [address] [place] [address] [facility] - [facility] Laure Johnson NP [address] [place] [address] PCP - Joe Tinajerodocumented as of this encounter
--- OUTSIDE RECORDS SUMMARY | 2025-01-06 07:50 | XMS_ITS | Encounter Summary ---
Author Organization [facility] Address [address] [place] [address] Care Team Providers Care Ribbon Weaver Name Role Phone Víctor Field MD Primary Care Provider [phone] Reason for Referral * Imaging (Routine) - AuthorizedSpecialtyDiagnoses / ProceduresReferred By ContactReferred To ContactRadiology Diagnoses Pulmonary embolus, left (HCC) Procedures CT chest angio w and wo IV contrast Víctor Field MD [address] [facility] [address] [place] [address] Phone: tel: fax: [facility] [address] [facility] [address] [place] [address] Phone: tel: fax: Referral IDStatusReasonStart DateExpiration DateVisits RequestedVisits [id number]/10/20255/ Encounter Details DateTypeDepartmentCare Team (Latest Contact Info)Ylkvjcsfmny14/10/2025Telephone [facility] [address] [facility] [address] [place] [address] Víctor Field MD [address] [facility] [address] [place] [address] Social History Tobacco UseTypesPacks/DayYears UsedDateSmoking Tobacco: NeverSmokeless Tobacco: NeverPHQ-2AnswerDate RecordedPatient Health Questionnaire-2 Ersbg72903/01/2024Sex and Gender InformationValueDate RecordedSex Assigned at BirthNot on fileLegal MooHfjf7105/10/2022 6:38 PM EDTGender IdentityNot on fileSexual OrientationNot on filedocumented as of this encounter Miscellaneous Notes * Telephone Encounter - Kathie Parks - 01/05/2025 2:13 PM EST [facility] central scheduling called stating that they need an order of a CTA of the chest not just a regular CT. Sent over documented in this encounter Plan of Treatment NameTypePriorityAssociated DiagnosesOrder ScheduleCT chest angio w and wo IV contrastImagingRoutine Pulmonary embolus, left (HCC) Expected: 01/05/2025, Expires: 01/05/2026documented as of this encounter Visit Diagnoses Diagnosis Pulmonary embolus, left (HCC) Other pulmonary embolism and infarction documented in this encounter Care Teams Team MemberRelationshipSpecialtyStart DateEnd Date Víctor Field MD [address] [place] [address] PCP - GeneralFamily Medicine07/04/22documented as of this encounter
--- OUTSIDE RECORDS SUMMARY | 2025-01-06 07:50 | XMS_ITS | Encounter Summary ---
Author Organization [facility] Address [address] [facility] [place] [address] Care Team Providers Care Bid Analyst Name Role Phone Víctor Field MD Primary Care Provider [phone] Encounter Details DateTypeDepartmentCare Team (Latest Contact Info)Uflhltfihkm61/06/2025bstract [facility] [address] [place] [phone] Víctor Field MD [address] [place] [address] Social History Tobacco UseTypesPacks/DayYears UsedDateSmoking Tobacco: NeverSmokeless Tobacco: NeverPHQ-2AnswerDate RecordedPatient Health Questionnaire-2 Cmdxn10303/01/2024Sex and Gender InformationValueDate RecordedSex Assigned at BirthNot on fileLegal XnfDvyj3905/10/2022 6:38 PM EDTGender IdentityNot on fileSexual OrientationNot on filedocumented as of this encounter Plan of Treatment Not on file documented as of this encounter Visit Diagnoses Not on filedocumented in this encounter Care Teams Team MemberRelationshipSpecialtyStart DateEnd Date Víctor Field MD [address] [place] [address] PCP - GeneralFamily Medicine07/04/22documented as of this encounter
--- OUTSIDE RECORDS SUMMARY | 2025-01-06 07:50 | XMS_ITS | Encounter Summary ---
Author Organization [facility] Address [address] [facility] [place] [address] Care Team Providers Care Hadoop Software Engineer Name Role Phone Víctor Field MD Primary Care Provider [phone] Encounter Details DateTypeDepartmentCare Team (Latest Contact Info)Tsdosddslwv22/10/2025Orders Only [facility] [address] [place] [address] Víctor Field MD [address] [place] [address] Social History Tobacco UseTypesPacks/DayYears UsedDateSmoking Tobacco: NeverSmokeless Tobacco: NeverPHQ-2AnswerDate RecordedPatient Health Questionnaire-2 Pmyob04503/01/2024Sex and Gender InformationValueDate RecordedSex Assigned at BirthNot on fileLegal IqkTlge7705/10/2022 6:38 PM EDTGender IdentityNot on fileSexual OrientationNot on filedocumented as of this encounter Plan of Treatment Not on file documented as of this encounter Visit Diagnoses Not on filedocumented in this encounter Care Teams Team MemberRelationshipSpecialtyStart DateEnd Date Víctor Field MD [address] [place] [address] PCP - GeneralFamily Medicine07/04/22documented as of this encounter
--- OUTSIDE RECORDS SUMMARY | 2025-01-06 07:50 | XMS_ITS | CCD ---
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 Name Role Phone JESSICA SUH Unavailable Unavailable REED KATE Primary Care Physician REED KATE Attending Unavail able REED KATE Admitting Unavail able Víctor Magdaleno MD Primary Care Provider Laure Johnson NP Unavailable Laure Johnson NP Unavailable VÍCTOR MAGDALENO Attending Unavailable Allergies Allergy ClassificationReported Allergen(s)Allergy TypeDate of OnsetReaction(s) Facility (16 sources)Aspirin; Translations: [Aspirin]Drug Jkxlmbe64-76-3285Cbkyebtj (finding), [facility] (16 sources)LatexAllergy to qwwbcgeia33-54-4683Cpno (disorder), [facility] (1 source)pencillinAllergy to mglknvceg69-67-5717Ihprlas [facility] (2 sources)bacitracin / neomycin / polymyxin b; Translations: [bacitracin/neomycin/polymyxin B topical]Drug AllergyEruption of skin (disorder) [facility] (2 sources)Penicillin; Translations: [penicillin]Drug AllergyWeal (disorder) [facility] (13 sources)NeomycinDrug Ryyykvy74-60-0199Mp[facility] (13 sources)PenicillinsDrug Acuuhpv39-56-5668XY[facility] Medications Current Medications MedicationDrug Class(es)DatesSig (Normalized)Sig (Original)albuterol 0.83 mg/ml inhalation solution (16 sources)beta2-Adrenergic AgonistStart: 07-26-2023 End: 38-22-3755botlirmju (2.5 MG/3ML) 0.083% nebulizer solution Indications: Atelectasis, bilateral , History of pneumonia Take 3 mL (2.5 mg) by nebulization every 6 (six) hours if needed for wheezing or shortness of breath 75 mL 11 07/26/2023 12/30/2024 Discontinued (Other)Start: 06-28-2023 End: 74-11-7755gponcrgqt (2.5 MG/3ML) 0.083% nebulizer solution Indications: Community acquired pneumonia, bilateral , SOB (shortness of breath) Take 3 mL (2.5 mg) by nebulization in the morning and 3 mL (2.5 mg) at noon and 3 mL (2.5 mg) in the evening and 3 mL (2.5 mg) before bedtime. Do all this for 14 days. 16 8 mL 06/28/2023 12/30/2024 Discontinued (Other)apixaban 5 mg oral tablet (12 sources)Factor Xa InhibitorStart: 14-07-4713dagi 1 tablet by mouth in the morningapixaban (Eliquis) 5 MG tablet Indications: History of pulmonary embolism Take 1 tablet (5 mg) by mouth in the morning and 1 tablet (5 mg) before bedtime. 200 tablet 2 05/07/2024 ActiveStart: 92-78-6635ljne 1 tablet by mouth twice dailyEliquis 5 mg oral tablet 5 mg = 1 tab(s), Oral, BID Start Date: 11/23/23 Status: OrderedStart: 70-35-6314hify 2 tablets by mouth twice daily, then take 1 tablet by mouth twice dailyEliquis 5 MG tablet take 2 tablet by mouth twice a day for 5 days then take 1 tablet twice a day 06/25/2023 Active benzonatate 100 mg oral capsule (3 sources)Non-narcotic AntitussiveStart: 06-23-2023 End: 10-08-2491xxgf 2 capsules by mouth every eight hours for coughbenzonatate (Tessalon) 100 MG capsule take 2 capsule by mouth every 8 hours if needed for cough 06/23/2023 12/05/2023 Discontinued (Other)cholecalciferol 0.025 mg oral tablet (1 source)Vitamin DStart: 24-53-7091bxmq 25 ug by mouth once daily Cholecalciferol (Vitamin D3) Active 25 MCG PO Daily June 17, 2023 12:00am levoFLOXacin 750 mg oral tablet (3 sources)Quinolone AntimicrobialStart: 06-23-2023 End: 71-10-5672dvbs 1 tablet by mouth once dailylevoFLOXacin (Levaquin) 750 MG tablet Take 1 tablet by mouth Daily 06/23/2023 12/05/2023 Discontinued (Other) levothyroxine sodium 0.1 mg oral tablet (13 sources)l-ThyroxineStart: 92-70-5492sngy 1 tablet by mouth in the morning levothyroxine (Synthroid, Levoxyl) 100 MCG tablet Indications: Acquired hypothyroidism Take 1 tablet (100 mcg) by mouth in the morning. 100 tablet 3 12/30/2024 ActiveStart: 22-26-9226tpbz 1 tablet by mouth in the morning levothyroxine (Synthroid, Levoxyl) 100 MCG tablet Indications: Acquired hypothyroidism Take 1 tablet (100 mcg) by mouth in the morning. 100 tablet 3 12/30/2024 ActiveStart: 02-15-2024 End: 20-04-5595rtfl 1 tablet by mouth once daily in the morninglevothyroxine (Synthroid, Levoxyl) 100 MCG tablet Indications: Acquired hypothyroidism TAKE 1 TABLET BY MOUTH EVERY MORNING 100 tablet 3 02/15/2024 12/30/2024 Discontinued (Reorder)Start: 60-20-1475htad 1 tablet by mouth in the morninglevothyroxine (Synthroid, Levoxyl) 100 MCG tablet Indications: Acquired hypothyroidism (CMS/HCC) Take 1 tablet (100 mcg) by mouth in the morning. 90 tablet 3 12/07/2023 ActiveStart: 44-81-6220krdb 1 tablet by mouth once dailylevothyroxine 100 mcg (0.1 mg) Tab 100 mcg = 1 tab(s), Oral, Daily Start Date: 11/23/23 Status: OrderedStart: 46-93-6003dlpk 1 tablet by mouth once daily in the morning levothyroxine (Synthroid, Levoxyl) 100 MCG tablet Indications: Acquired hypothyroidism (CMS/HCC) take 1 tablet by mouth every morning 90 tablet 3 09/10/2023 ActiveStart: 18-61-0137ilip 100 ug by mouth once dailyLevothyroxine Active 100 MCG PO Daily June 17, 2023 12:00ammontelukast 10 mg oral tablet (3 sources)Leukotriene Receptor AntagonistStart: 07-26-2023 End: 27-12-0652plpz 1 tablet by mouth at bedtimemontelukast (Singulair) 10 MG tablet Indications: Seasonal allergies Take 1 tablet (10 mg) by mouthat bedtime 30 tablet 2 07/26/2023 12/05/2023 Discontinued (Other)[place] 5-Mit-Rok-Fish Oil (Fish Oil) 100-160-1,000 mg capsule (1 source)Start: 25-68-9734Uvrct 2-Hzp-Yck-Fish Oil (Fish Oil) 100-160-1,000 mg capsule Active CAP PO June 17, 2023 12:00ammicroencapsulated potassium chloride 10 meq extended release oral tablet (3 sources)Start: 06-23-2023 End: 50-03-7889sphvjsnto chloride CR (Klor-Con M10) 10 MEQ ER tablet take 2 tablet by mouth three times a day 06/23/2023 12/05/2023 Discontinued (Other) Problems Active Problems Problem ClassificationProblemDateDocumented DateEpisodic/ChronicBiliary tract disease (2 sources)Hwjdaeuvb81-79-5724RsbrokidRpofowlv of urinary tract (3 sources)Kidney stone; Translations: [Calculus of kidney]Onset: 11-23-2023 65-68-2150TqexcyshQlsrlft kidney disease (4 sources)Chronic kidney disease stage 3A ; Translations: [Stage 3a chronic kidney disease (CKD) ([facility])]Onset: 558594-37-8931GndrgjpXzrlletqbs and other anemia (2 sources)Iron deficiency ahunzn37-46-6195DtqkikcwEncplmjl mellitus without complication (4 sources)Abnormal glucose level; Translations: [Impaired fasting glucose] Onset: 171166-91-1539ArxmjrprZgfwxirbs of lipid metabolism (17 sources)Pure hypercholesterolemia; Translations: [Pure hypercholesterolemia, unspecified]Onset: 279513-86-0195SlkcnxlQgwisvccssyzg symptoms and ill- defined conditions (5 sources)Mike hematuria; Translations: [Blood in urine]Onset: 11-23-2023 02-55-2366SbisfpxzHggibiwnxea of prostate (3 sources)Benign prostatic hypertrophy with outflow obstruction; Translations: [Benign prostatic hyperplasia with lower urinary tract symptoms]Onset: 101092-17-7564MndjinaJunquzakhaufj and screening for infectious disease (4 sources)Patient encounter status; Translations: [Encounter for screening for other viral diseases]43-14-0298JhmvvgzkPeabj aftercare (1 source)Long-term current use of anticoagulant; Translations: [buttermaker helper (current) use of anticoagulants]Onset: 29-58-5171BlfgzcufLlyap liver diseases (13 sources)Decreased liver function; Translations: [Other specified diseases of liver]Onset: 032329-29-5264GdoeepwFqdya screening for suspected conditions (not mental disorders or infectious disease) (6 sources)Decreased liver function; Translations: [Patient encounter status] Onset: 969619-72-8635XoielvmpWodzgqfva heart disease (8 sources)H/O: pulmonary embolus; Translations: [Personal history of pulmonary embolism]Onset: 599624-88-7434RaublfgoUncjtzg disorders (20 sources)Acquired hypothyroidism; Translations: [Hypothyroidism]Onset: 798594-52-9149GajmtuwXuhtkpxjbwws (1 source)Unknown / UNK(Unknown)Onset: 46-29-0448Dmtpkuekrkfe (2 sources)Drug therapy ncjhyjv10-93-9602 Past or Other Problems Problem ClassificationProblemDateDocumented DateEpisodic/ChronicAcute and unspecified renal failure (13 sources)Acute renal failure syndrome; Translations: [Acute kidney failure, unspecified]Onset: 741512-77-6483Wridihtj Results Test NameValueInterpretationReference RangeFacilityCBC (INCLUDES DIFF/PLT)on 21-08-9485Wqzovczff (Bld) [#/Vol]0.033 10*3/uLNormal0-200[facility] Comment on above:Performed By: #### 863, 50414, 7600 #### [facility] [place] [address] [address] , [address] [place] [address] Racecourse Barrier Attendant: Julio Nicole MD #### 6399, 99646 #### [facility] [address] [place], [place] [phone] Racecourse Barrier Attendant: Nisha Rosas FlatiBasophils/100 WBC (Bld)0.5 %NormalQuest DiagnosticsComment on above:Performed By: #### 866, 08625, 7600 #### [facility] [place] [address] [address] , [address] [place] [address] Racecourse Barrier Attendant: Julio Nicole MD #### 6399, 21058 #### [facility] [address] Racecourse Barrier Attendant: Nisha Rosas FlatiEosinophils (Bld) [#/Vol]0.766 10*3/uLHigh 15-500Quest DiagnosticsComment on above:Performed By: #### 866, 83206, 7600 #### [facility] [place] [address], [address] [place] [address] Racecourse Barrier Attendant: Julio Nicole MD #### 6399, 54265 #### [facility] [address] Racecourse Barrier Attendant: Nisha Rosas FlatiEosinophils/100 WBC (Bld)11.6 %NormalQuest DiagnosticsComment on above:Performed By: #### 866, 52581, 7600 #### [facility] [address], [address] [place] [address] Racecourse Barrier Attendant: Julio Nicole MD #### 6399, 22372 #### [facility] [address] [place], [place] [phone] Racecourse Barrier Attendant: Nisha OjedaiErythrocyte distribution width (RBC) [Ratio] 14.7 %Qzbxbg87.0-15.0Quest DiagnosticsComment on above:Performed By: #### 866, 82084, 7600 #### [facility] [address], [address] [place], [place] [address] Racecourse Barrier Attendant: Julio Nicole MD #### 6399, 49324 #### [facility] [address] [place] [address] Racecourse Barrier Attendant: Nisha Rosas FlatiHematocrit (Bld) [Volume fraction]47.4 %Normal 38.5-50.0[facility] DiagnosticsComment on above:Performed By: #### 866, 46786, 7600 #### [facility] [address], [address] [place], [place] [address] Racecourse Barrier Attendant: Julio Nicole MD #### 6399, 19897 #### [place] [address] Racecourse Barrier Attendant: Nisha Rosas FlatiHemoglobin (Bld) [Mass/Vol]16.4 g/dLNormal 13.2-17.1[facility] DiagnosticsComment on above:Performed By: #### 866, 43045, 0 #### [facility] [address], [address] [place] [address] Racecourse Barrier Attendant: Julio Nicole MD #### 6399, 92081 #### [facility] Racecourse Barrier Attendant: Nisha Rosas FlatiLymphocytes (Bld) [#/Vol]1.822 10*3/uLNormal 850-3900Quest DiagnosticsComment on above:Performed By: #### 866, 93373, 7600 #### [facility] [address] , [address] [place] [address] Racecourse Barrier Attendant: Julio Nicole MD #### 6399, 80268 #### [facility] [address] [place], [place] [address] Racecourse Barrier Attendant: Nisha Rosas FlatiLymphocytes/100 WBC (Bld)27.6 %NormalQuest DiagnosticsComment on above:Performed By: #### 866, 15293, 7600 #### [facility] [address], [address] [place] [address] Racecourse Barrier Attendant: Julio Nicole MD #### 6399, 46369 #### [facility] [address] [place] [address] Racecourse Barrier Attendant: Nisha oRsas FlatiMCH (RBC) [Entitic mass]32.3 nhQvteev18.0-33.0 [facility]osticsComment on above:Performed By: #### 866, 59027, 7600 #### [facility] [address], [address] [place] [address] Racecourse Barrier Attendant: Julio Nicole MD #### 6399, 30149 #### [facility] [address] [place], [place] [address] Racecourse Barrier Attendant: Nisha Rosas FlatiMCHC (RBC) [Mass/Vol]34.6 g/iTXhhshr15.0-36.0 [facility]osticsComment on above:Result Comment: For adults, a slight decrease in the calculated MCHC value (in the range of 30 to 32 g/dL) is most likely not clinically significant; however, it should be interpreted with caution in correlation with other red cell parameters and the patient's clinical condition.Performed By: #### 866, 81198, 7600 #### [facility] [address], [address] [place] [address] Racecourse Barrier Attendant: Julio Nicole MD #### 6399, 24824 #### [facility] [address] [place] [address] Racecourse Barrier Attendant: Nisha OjedaiMCV (RBC) [Entitic vol]93.3 aCOpzyab93.0-100.0 [facility]osticsComment on above:Performed By: #### 866, 76052, 7600 #### [facility] [address], [address] [place] [address] Racecourse Barrier Attendant: Julio Nicole MD #### 6399, 94443 #### [facility] [address] [place] [address] Racecourse Barrier Attendant: Nisha Rosas FlatiMonocytes (Bld) [#/Vol]0.898 10*3/uLNormal 200-950Quest DiagnosticsComment on above:Performed By: #### 866, 30135, 7600 #### [facility] [address] , [address] [place] [address] Racecourse Barrier Attendant: Julio Nicole MD #### 6399, 94161 #### [facility] [address] [place] [address] Racecourse Barrier Attendant: Nisha Rosas FlatiMonocytes/100 WBC (Bld)13.6 %NormalQuest DiagnosticsComment on above:Performed By: #### 866, 22766, 7600 #### [facility] [address], [address] [place] [address] Racecourse Barrier Attendant: Julio Nicole MD #### 6399, 03377 #### [facility] [address] [place] [address] Racecourse Barrier Attendant: Nisha Rosas FlatiNeutrophils (Bld) [#/Vol]3.082 10*3/uLNormal 1500-7800Quest DiagnosticsComment on above:Performed By: #### 866, 30144, 7600 #### [facility] [address], [address] [place] [address] Racecourse Barrier Attendant: Julio Nicole MD #### 6399, 72070 #### [facility] [address] [place], [place] [address] Racecourse Barrier Attendant: Nisha Rosas FlatiNeutrophils/100 WBC (Bld)46.7 %NormalQuest DiagnosticsComment on above:Performed By: #### 866, 96660, 7600 #### [facility] [address] , [address] [place] [address] Racecourse Barrier Attendant: Julio Nicole MD #### 6399, 75849 #### [facility] [address] [place], [place] [address] Racecourse Barrier Attendant: Nisha OjedaiPlatelet mean volume (Bld) [Entitic vol]8.7 fL Normal7.5-12.5[facility] DiagnosticsComment on above:Performed By: #### 866, 78920, 7600 #### [facility] [place] [address] [address] , [address] [place] [address] Racecourse Barrier Attendant: Julio Nicole MD #### 6399, 76115 #### [facility] [address] Racecourse Barrier Attendant: Nisha Rosas FlatiPlatelets (Bld) [#/Vol]257 10*3/uLNormal 140-400Quest DiagnosticsComment on above:Performed By: #### 866, 63651, 7600 #### [facility] [address], [address] [place] [address] Racecourse Barrier Attendant: Julio Nicole MD #### 6399, 35117 #### [facility] [address] Racecourse Barrier Attendant: Nisha Rosas FlatiRBC (Bld) [#/Vol]5.08 10*6/uLNormal4.20-5.80 [facility]osticsComment on above:Performed By: #### 866, 36441, 7600 #### [facility] [address], [address] [place] [address] Racecourse Barrier Attendant: Julio Nicole MD #### 6399, 87888 #### [facility]-[address] Racecourse Barrier Attendant: Nisha Rosas FlatiWBC (Bld) [#/Vol]6.6 10*3/uLNormal3.8-10.8 [facility]osticsComment on above:Performed By: #### 866, 65043, 7600 #### [facility] [address], [address] [place] [address] Racecourse Barrier Attendant: Julio Nicole MD #### 6399, 34337 #### [facility] [address] [place] [address] Racecourse Barrier Attendant: Nisha OjedaiCOMPREHENSIVE METABOLIC PANELon 12-18-2024 Albumin [Mass/Vol]4.5 g/dLNormal3.6-5.1[facility] DiagnosticsComment on above: Performed By: #### 866, 45892, 7600 #### [facility] [address], [address] [place] [address] Racecourse Barrier Attendant: Julio Nicole MD #### 6399, 36147 #### [facility] [address] [place] [address] Racecourse Barrier Attendant: Nisha OjedaiAlbumin/Globulin [Mass ratio]1.6 {ratio}Normal 1.0-2.5[facility] DiagnosticsComment on above:Performed By: #### 866, 55851, 1750 #### [facility] [address], [address] [place] [address] Racecourse Barrier Attendant: Julio Nicole MD #### 6399, 65910 #### [facility]-[address] [address] Racecourse Barrier Attendant: Nisha Rosas FlatiALP [Catalytic activity/Vol]61 U/PXhmwuc39-530 [facility]osticsComment on above:Performed By: #### 866, 43098, 5280 #### [facility] [address], [address] [place] [address] Racecourse Barrier Attendant: Julio Nicole MD #### 6399, 53113 #### [facility] [address] [place] [address] Racecourse Barrier Attendant: Nisha Rosas FlatiALT [Catalytic activity/Vol]12 U/LNormal9-46 [facility]osticsComment on above:Performed By: #### 866, 73574, 7600 #### [facility] [address], [address] [place] [address] Racecourse Barrier Attendant: Julio Nicole MD #### 6399, 50493 #### [facility] [address] [place] [address] Racecourse Barrier Attendant: Nisha OjedaiAST [Catalytic activity/Vol]25 U/WBiyznh34-23 [facility]osticsComment on above:Result Comment: Results slightly increased due to hemolysis.Performed By: #### 866, 54769, 7600 #### [facility] [address], [address] [place] [address] Racecourse Barrier Attendant: Julio Nicole MD #### 6399, 95205 #### [facility] [address] [place] [address] Racecourse Barrier Attendant: Nisha Rosas FlatiBilirubin [Mass/Vol]1.0 mg/dLNormal0.2-1.2 [facility]osticsComment on above:Performed By: #### 866, 10540, 3140 #### [facility] [address], [address] [place] [address] Racecourse Barrier Attendant: Julio Nicole MD #### 6399, 79489 #### [facility] [address] [place] [address] Racecourse Barrier Attendant: Nisha OjedaiBUN/CREATININE RATIOSEE NOTE:Normal6-22Quest DiagnosticsComment on above:Result Comment: Not Reported: BUN and Creatinine are within reference range.Performed By: #### 866, 95750, 1800 #### [facility] [address], [address] [place] [address] Racecourse Barrier Attendant: Julio Nicole MD #### 6399, 28008 #### [facility] [address] [place] [address] Racecourse Barrier Attendant: Nisha Rosas FlatiCalcium [Mass/Vol]9.3 mg/dLNormal8.6-10.3[facility] DiagnosticsComment on above:Performed By: #### 866, 44606, 7600 #### [facility] [address], [address] [place], [place] [address] Racecourse Barrier Attendant: Julio Nicole MD #### 6399, 38512 #### [facility] [address] [place] [address] Racecourse Barrier Attendant: Nisha Rosas FlatiChloride [Moles/Vol]103 mmol/WRzkcge97-101 [facility]osticsComment on above:Performed By: #### 866, 76384, 7600 #### [facility] [address], [address] [place], [place] [address] Racecourse Barrier Attendant: Julio Nicole MD #### 6399, 35670 #### [facility] [address] [place] [address] Racecourse Barrier Attendant: Nisha OjedaiCO2 [Moles/Vol]23 mmol/MRqgndz47-47Nyxgh DiagnosticsComment on above:Performed By: #### 866, 22621, 4800 #### [facility] [address], [address] [place], [place] [address] Racecourse Barrier Attendant: Julio Nicole MD #### 6399, 44546 #### [facility]-[address] [address] Racecourse Barrier Attendant: Nisha OjedaiCreatinine [Mass/Vol]1.25 mg/dLNormal0.70-1.28 [facility]osticsComment on above:Performed By: #### 866, 12025, 7600 #### [facility] [address], [address] [place], [place] [address] Racecourse Barrier Attendant: Julio Nicole MD #### 6399, 35610 #### [facility] [address] [place] [address] Racecourse Barrier Attendant: Nisha OjedaiGFR/1.73 sq M.predicted among non-blacks MDRD (S/P/Bld) [Vol rate/Area]62 mL/min/{1.73_m2}Normal> OR = 60[facility] Comment on above:Performed By: #### 866, 55324, 2960 #### [facility] [address], [address] [place], [place] [address] Racecourse Barrier Attendant: Julio Nicole MD #### 6399, 44586 #### [facility] [address] [place] [address] Racecourse Barrier Attendant: Nisha Rosas FlatiGlobulin (S) [Mass/Vol]2.8 g/dLNormal1.9-3.7 [facility]osticsComment on above:Performed By: #### 866, 32400, 7600 #### [facility] [address], [address] [place] [address] Racecourse Barrier Attendant: Julio Nicole MD #### 6399, 79543 #### [facility]-[address] [address] Racecourse Barrier Attendant: Nisha Rosas FlatiGlucose [Mass/Vol]95 mg/yTUaegbw75-68Spiph DiagnosticsComment on above:Result Comment: Fasting reference intervalPerformed By: #### 866, 84684, 3640 #### [facility] [address], [address] [place] [address] Racecourse Barrier Attendant: Julio Nicole MD #### 6399, 63003 #### [facility] [address] Racecourse Barrier Attendant: Nisha Rosas FlatiPotassium [Moles/Vol]4.8 mmol/LNormal3.5-5.3 [facility]osticsComment on above:Performed By: #### 866, 66189, 5520 #### [facility] [address], [address] [place] [address] Racecourse Barrier Attendant: Julio Nicole MD #### 6399, 12382 #### [facility] [address] [place] [address] Racecourse Barrier Attendant: Nisha Rosas FlatiProtein [Mass/Vol]7.3 g/dLNormal6.1-8.1[facility] DiagnosticsComment on above:Performed By: #### 866, 43612, 7600 #### [facility] [address], [address] [place] [address] Racecourse Barrier Attendant: Julio Nicole MD #### 6399, 18071 #### [facility] [address] [place] [address] Racecourse Barrier Attendant: Nisha OjedaiSodium [Moles/Vol]136 mmol/HDcjqte023-102Wgxdh DiagnosticsComment on above:Performed By: #### 866, 44131, 7600 #### [facility] [address], [address] [place] [address] Racecourse Barrier Attendant: Julio Nicole MD #### 6399, 05153 #### [facility] [address] [place] [address] Racecourse Barrier Attendant: Nisha OjedaiUrea nitrogen [Mass/Vol]15 mg/dLNormal7-25 [facility]osticsComment on above:Performed By: #### 866, 69796, 7600 #### [facility] [address], [address] [place] [address] Racecourse Barrier Attendant: Julio Nicole MD #### 6399, 87799 #### [facility] [address] [place], [place] [address] Racecourse Barrier Attendant: Nisha HERRERALima Memorial Hospital 68-68-2040Ynxgxzuwzxp [Mass/Vol]199 mg/dLNormal<200Quest DiagnosticsComment on above:Order Comment: FASTING:YES FASTING: YESPerformed By: #### 866, 86886, 7600 #### [facility] Diagn[facility] [address], [address] [place] [address] Racecourse Barrier Attendant: Julio Nicole MD #### 6399, 67362 #### [facility] [address] [place] [address] Racecourse Barrier Attendant: Nisha OjedaiCholesterol in HDL [Mass/Vol]48 mg/dLNormal> OR = 40Quest DiagnosticsComment on above:Order Comment: FASTING:YES FASTING: YESPerformed By: #### 866, 92222, 7600 #### [facility] [address], [address] [place], [place] [address] Racecourse Barrier Attendant: Julio Nicole MD #### 6399, 73004 #### [facility] [address] [place] [address] Racecourse Barrier Attendant: Nisha Fisholesterol in LDL [Mass/Vol]130 mg/dLHigh [facility] DiagnosticsComment on above:Order Comment: FASTING:YES FASTING: YESResult Comment: Reference range: <100 Desirable range <100 mg/dL for primary prevention; <70 mg/dL for patients with CHD or diabetic patients with > or = 2 CHD risk factors. LDL-C is now calculated using the Nieves calculation, which is a validated novel method providing better accuracy than the Friedewald equation in the estimation of LDL-C. Pilo SS et al. AGUSTINA. 2013;310(19): 8749-7740 (http://education.PassKit/faq/OOX568)Performed By: #### 866, 42043, 2890 #### [facility] [address], [address] [place], [place] [address] Racecourse Barrier Attendant: Julio Nicole MD #### 6399, 85610 #### [facility] [address] [place] [address] Racecourse Barrier Attendant: Nisha Fisholesterol.total/Cholesterol in HDL [Mass ratio]4.1 {ratio}Normal<5.0Quest DiagnosticsComment on above:Order Comment: FASTING:YES FASTING: YESPerformed By: #### 866, 37612, 6850 #### [facility] [place] [address] [facility], [address] [place], [place] [address] Racecourse Barrier Attendant: Julio Nicole MD #### 6399, 84157 #### [facility] [address] [place] [address] Racecourse Barrier Attendant: Nisha OjedaiNON HDL [id number] mg/dL (calc)High<130 Quest DiagnosticsComment on above:Order Comment: FASTING:YES FASTING: YESResult Comment: For patients with diabetes plus 1 major ASCVD risk factor, treating to a non-HDL-C goal of <100 mg/dL (LDL-C of <70 mg/dL) is considered a therapeutic option.Performed By: #### 866, 54143, 7600 #### [facility] [address], [address] [place] [address] Racecourse Barrier Attendant: Julio Nicole MD #### 6399, 55539 #### [facility] [address] [place] [address] Racecourse Barrier Attendant: Nisha OjedaiTriglyceride [Mass/Vol]103 mg/dLNormal<150 Quest DiagnosticsComment on above:Order Comment: FASTING:YES FASTING: YESPerformed By: #### 866, 53017, 7600 #### [facility] [address], [address] [place] [address] Racecourse Barrier Attendant: Julio Nicole MD #### 6399, 26820 #### [facility] [address] [place] [address] Racecourse Barrier Attendant: Nisha OjedaiPSA, TOTALon 10-32-6984LEQ, TOTAL0.69 ng/mL Normal< OR = 4.00Quest DiagnosticsComment on above:Result Comment: The total PSA value from this assay system is standardized against the WHO standard. The test result will be approximately 20% lower when compared to the equimolar-standardized total PSA (Lindsey Arabella). Comparison of serial PSA results should be interpreted with this fact in mind. This test was performed using the Siemens chemiluminescent method. Values obtained from different assay methods cannot be used interchangeably. PSA levels, regardless of value, should not be interpreted as absolute evidence of the presence or absence of disease.Performed By: #### 866, 88084, 7600 #### [facility] [address], [address] [place] [address] Racecourse Barrier Attendant: Julio Nicole MD #### 6399, 47453 #### [facility] [address] [place] [address] Racecourse Barrier Attendant: Nisha OjedaiT4, FREEon 19-25-3524N3, FREENormalQuest DiagnosticsComment on above:Result Comment: TEST NOT PERFORMED. Quantity not sufficient.Performed By: #### 866, 36611, 7600 #### [facility] [place] [address] [facility], [address] [place], [place] [address] Racecourse Barrier Attendant: Julio Nicole MD #### 6399, 70027 #### [facility] [address] [place] [address] Racecourse Barrier Attendant: Nisha OjedaiTSH W/REFLEX TO FT4on 35-49-3694ZSM W/REFLEX TO FT40.23 mIU/LLow0.40-4.50Quest DiagnosticsComment on above:Performed By: #### 866, 90947, 7600 #### [facility] [address] [facility], [address] [place], [place] [address] Racecourse Barrier Attendant: Julio Nicole MD #### 6399, 36500 #### [facility] [address] [place] [address] Racecourse Barrier Attendant: Nisha Gordillo Letteron 18-62-2517Khxvvpvv Letter Provider Letter December 03, 2024 FIONA CALDWELL [address] [place] [phone] : 1955 Dear Fiona, We have been trying to reach you with no success. It is important that you return our call regarding scheduling a follow up appointment upon receiving this letter. Also, at the time of your call, please provide us with your current information. Thank you for your prompt attention to this matter. Sincerely, [facility] [address] [place] [address] IsevtkRpmpstBethesda North HospitalA Chest vessels WO and W contrast Mallika [id number] [address] [address] Scan Report Signed Patient: FIONA CALDWELL MR#: [id number] : 1955 Acct:[id number] Age/Sex: 68 / M ADM Date: 12/18/23 Loc: LAB Attending Dr: MAKENNA FAJARDO Ordering Physician: MAKENNA FAJARDO Date of Service: 12/18/23 Procedure(s): CT angio chest Accession Number(s): [id number] cc: VÍCTOR MAGDALENO [address] [address] Patient Name: IFONA CALDWELL MRN: [id number] date: 1955 Sex: M Assigned Patient Location: LAB Current Patient Location: Accession/Order Number: [id number] Exam Date: 12/18/2023 07:45 Report Date: 12/19/2023 06:42 At the request of: MAKENNA FAJARDO Procedure: CT angio chest EXAMINATION: CT angio chest HISTORY: History of pulmonary embolism Z86.711 COMPARISON: CTA chest 06/21/2023 TECHNIQUE: Multi-planar CT images were created with IV contrast. Axial, Coronal, and Sagittal images. Dose reduction techniques were achieved by using automated exposure control and/or adjustment of mA and/or kV according to patient size and/or use of iterative reconstruction technique. 3-D reconstruction was performed on a separate workstation. FINDINGS: VASCULATURE: No pulmonary embolism or abnormal opacity. LUNGS: Geographic shaped 2.1 cm opacity within right posterior costophrenic angle and 0.8 cm within left posterior costophrenic angle. Mild haziness of the lower lobe parenchyma bilaterally suggestive of infiltrates or atelectasis. PLEURA: No mass, effusion, or pneumothorax. MATILDA: No mass or adenopathy. MEDIASTINUM: No mass or adenopathy. CARDIAC: No enlargement, pericardial effusion, or pericardial thickening. AORTA: No aneurysm or dissection. CHEST WALL: No mass or axillary adenopathy. BONES: No bone lesion or fracture. LIMITED ABDOMEN: No suspicious findings. Limited images of the upper abdomen. OTHER: Negative. CT/CT angio chest IMPRESSION: 1. Clearing of previously seen pulmonary emboli. 2. Geographic shaped opacity within the posterior costophrenic angle on the right and left, with clearing of the rest of the previously seen dense infiltrates/consolidation. This may represent residual infiltrates/consolidation or masses. Consider follow-up CT chest in 1 month with full lung expansion at time of imaging to document clearing versus stability. Electronically authenticated by: CARLTON KANG Date: 12/19/2023 06:42 Dictated By: Carlton Kang M.D. Signed By: 12/19/2345 DD/ 1 TD/TT: Mine Foreman:KEENAHRadiologjohanna, Radiologist, - 12/19/2023 [place] [address] CT Scan Report Signed Patient: FIONA CALDWELL MR#: [id number] : 1955 Acct:[id number] Age/Sex: 68 / M ADM Date: 12/18/23 Loc: LAB Attending Dr: MAKENNA FAJARDO Ordering Physician: MAKENNA FAJARDO Date of Service: 12/18/23 Procedure(s): CT angio chest Accession Number(s): [id number] cc: VÍCTOR MAGDALENO [place] [address] Patient Name: FIONA CALDWELL MRN: [id number] date: 1955 Sex: M Assigned Patient Location: LAB Current Patient Location: Accession/Order Number: [id number] Exam Date: 12/18/2023 07:45 Report Date: 12/19/2023 06:42 At the request of: MAKENNA FAJARDO Procedure: CT angio chest EXAMINATION: CT angio chest HISTORY: History of pulmonary embolism Z86.711 COMPARISON: CTA chest 06/21/2023 TECHNIQUE: Multi-planar CT images were created with IV contrast. Axial, Coronal, and Sagittal images. Dose reduction techniques were achieved by using automated exposure control and/or adjustment of mA and/or kV according to patient size and/or use of iterative reconstruction technique. 3-D reconstruction was performed on a separate workstation. FINDINGS: VASCULATURE: No pulmonary embolism or abnormal opacity. LUNGS: Geographic shaped 2.1 cm opacity within right posterior costophrenic angle and 0.8 cm within left posterior costophrenic angle. Mild haziness of the lower lobe parenchyma bilaterally suggestive of infiltrates or atelectasis. PLEURA: No mass, effusion, or pneumothorax. MATILDA: No mass or adenopathy. MEDIASTINUM: No mass or adenopathy. CARDIAC: No enlargement, pericardial effusion, or pericardial thickening. AORTA: No aneurysm or dissection. CHEST WALL: No mass or axillary adenopathy. BONES: No bone lesion or fracture. LIMITED ABDOMEN: No suspicious findings. Limited images of the upper abdomen. OTHER: Negative. CT/CT angio chest IMPRESSION: 1. Clearing of previously seen pulmonary emboli. 2. Geographic shaped opacity within the posterior costophrenic angle on the right and left, with clearing of the rest of the previously seen dense infiltrates/consolidation. This may represent residual infiltrates/consolidation or masses. Consider follow-up CT chest in 1 month with full lung expansion at time of imaging to document clearing versus stability. Electronically authenticated by: CARLTON KANG Date: 12/19/2023 06:42 Dictated By: Carlton Kang M.D. Signed By: 12/19/2345 DD/ 1 TD/TT: Mine Foreman: ASHLI HealthcareRadiology Study observation (narrative)[facility] HealthcareCTA Chest vessels WO and W contrast IVOrdered By: Radiologist Radiology on [id number]. Louis VA Medical Center Work Phone: TBH CREATININEon 82-20-7720Zfdhojowzf [Mass/Vol]1.45 mg/dLHigh0.70 - 1.30 mg/dLNOMS HealthcareGFR/1.73 sq M.predicted CKD-EPI (S/P/Bld) [Vol rate/Area]59Low>=60 mL/min/1.73m 2NOMS HealthcareInterpretation and review of laboratory resultsAbnormalNOGolden Valley Memorial HospitalTB EGFR-NON AF BURMESE 48Low>=60 mL/min/1.73m 2NOMS HealthcareCLINISYNCNOMS HealthcareProvider Letteron 76-00-4813Zdegzflb LetterProvider Letter December 10, 2023 FIONA CALDWELL [address] [place] [phone] : 1955 Dear JuneFiona Caldwell, We have been trying to reach you with no success. It is important that you return our call upon receiving this letter. Also, at the time of your call, please provide us with your current information. Thank you for your prompt attention to this matter. Sincerely, [facility] [address] [place] [address] LsdzzuMndohoCincinnati Children's Hospital Medical CenterURINALYSISOrdered By: SYSTEM SYSTEM on 27-20-1595Ipmqwjcjx Ql (U)NegativeNormalNegativemg/dLBAILEY MEDICAL [facility] [place] UA Auto SS Clarity (U)Clear (11/23/23 9:30 AM)NormalClearFNORTHWEST CENTER FOR BE[facility]AV[facility] [place] UA Auto SSColor (U)Colorless 1 *ABN* (11/23/23 9:30 AM)Invalid Interpretation CodeYellowBAILEY MEDICAL CENTER – [place], [place] UA Auto SSComment on above:Interpretive Data: Microscopic readings are only performed on those samples that meet specific criteria set forth by [facility].Glucose Ql (U)NegativeNormalNegativemg/dLBAILEY MEDICAL CENTER – [place] UA Auto SSHemoglobin Auto test strip (U) [Mass/Vol]1+ mg/dLInvalid Interpretation CodeNegativemg/dL [facility] [place] [place] UA Auto SSKetones Auto test strip Ql (U)NegativeNormalNegativemg/dLBAILEY MEDICAL CENTER – [place] UA Auto SSLeukocyte esterase Auto test strip Ql (U)NegativeNormalNegativeLeu/uLBAILEY MEDICAL CENTER [facility] [place] UA Auto SSMucus Auto Ql (U)NegativeNormalNegativegraded/LPFFTM UA Auto SS Nitrite Auto test strip Ql (U)NegativeNormalNegativemg/dLBAILEY MEDICAL CENTER – [place] UA Auto SSpH (U) 5.5 *NA* (11/23/23 9:30 AM)Invalid Interpretation Code5.0 - 9.0[facility] [place] [place] UA Auto SSProtein Ql (U)NegativeNormalNegativemg/dLBAILEY MEDICAL CENTER – [place] UA Auto SSSpecific gravity (U) [Rel density] 1.004 *NA* (11/23/23 9:30 AM)Invalid Interpretation Code1.005 - 1.030[facility] [place] [place] [facility]A Auto SS Urobilinogen (U) [Mass/Vol]NegativeNormalNegativemg/dLBAILEY MEDICAL CENTER – [place] UA Auto SSURINALYSIS Ordered By: Edie Waddell on 47-12-1171IW Spec DescRandom Urine (11/23/23 9:30 AM)NormalBAILEY MEDICAL CENTER – [place] UA Auto SSUrinalysis with Microon 11-23-2023 Bilirubin Ql (U)NegativeNormalNegativeOhiohealth Shelby HospitalComment on above:Performed By: #### [id number] #### [facility] [address], [place] [address]Bmbjlcj (U)ClearNormalClearOhiohealth Shelby HospitalComment on above:Performed By: #### [id number] #### [facility] [address] [place], [place] [address]Yvecv (U)ColorlessAbnormalYellowOhiohealth Shelby Hospital Comment on above:Result Comment: Microscopic readings are only performed on those samples that meet specific criteria set forth by [facility].Performed By: #### [id number] #### [facility] [address], [place] [address]Mivwita Ql (U)NegativeNormalNegHolmes County Joel [facility]omerene [facility] Hospital Comment on above:Performed By: #### [id number] #### [facility] [address] [place], [place] [address]Cdnvzqyakd Auto test strip (U) [Mass/Vol]1+ mg/dLAbnormal [facility] Butler HospitalComment on above:Performed By: #### [id number] #### [facility] [address], [place] [address]Whfcnki Auto test strip Ql (U)NegativeNormalNegativeOhiohealth Shelby HospitalComment on above:Performed By: #### [id number] #### [facility] [address], [place] [address]Yjxmgjpgo esterase Auto test strip Ql (U)NegativeNormalNegative [facility] HospitalComment on above:Performed By: #### [id number] #### [facility] [address], [place] [address]Veded Auto Ql (U)NegativeNormalNegativeOhiohealth Shelby HospitalComment on above:Performed By: #### [id number] #### [facility] [address], [place] [address]Ocurzmp Auto test strip Ql (U)NegativeNormalNegativeOhiohealth Shelby HospitalComment on above:Performed By: #### [id number] #### [facility] [address], [place] [address]oX (U)5.5 [pH]Invalid Interpretation Code5.0-9.0[facility] HospitalComment on above:Performed By: #### [id number] #### [facility] [address], [place] [address]Kdtiapq Ql (U)NegativeNormalNegHolmes County [facility] Comment on above:Performed By: #### [id number] #### [facility] [address], [place] [address]Dbikzwsl gravity (U) [Rel density]1.004Invalid Interpretation Code1.005-1.030Ohio[facility] Shelby HospitalComment on above:Performed By: #### [id number] #### [facility] [address], [place] [address]Aaqovxtemald (U) [Mass/Vol]NegativeNormalNegHolmes County Joel Pomerene Memorial HospitalComment on above:Performed By: #### [id number] #### [facility] [address] [place] [address]Mcfs of Urine collection methodRandom UrineSt. Vincent HospitalComment on above:Performed By: #### [id number] #### [facility] [address], [place] [address]UE RENAL BIon 83-41-7537[place] [address] Ultrasound Report Signed Patient: FIONA CALDWELL MR#: [id number] : 1955 Acct:[id number] Age/Sex: 68 / M ADM Date: 11/02/23 Loc: RAD Attending Dr: Gladis Gutierrez M.D. Ordering Physician: Gladis Gutierrez M.D. Date of Service: 11/02/23 Procedure(s): US renal BI Accession Number(s): [id number] cc: VÍCTOR MAGDALENO ; Gladis Gutierrez M.D. The [address] [address] Patient Name: FIONA CALDWELL MRN: [id number] date: 1955 Sex: M Assigned Patient Location: [facility] Current Patient Location: Accession/Order Number: [id number] Exam Date: 11/02/2023 18:38 Report Date: 11/05/2023 07:39 At the request of: GLADIS GUTIERREZ Procedure: US renal BI EXAMINATION: US renal BI HISTORY: Kidney stone COMPARISON: No relevant comparison available. TECHNIQUE: Ultrasound examination was performed of the bladder. FINDINGS: Right Kidney: Normal in size, contour and echotexture. The cortex measures 1.5 cm. No solid mass, hydronephrosis or obstructing nephrolithiasis. Height: 4.33 cm Length: 10.64 cm Width: 4.88 cm Left Kidney: Normal in size, contour and echotexture. The cortex measures 1.9 cm. No solid mass, hydronephrosis or obstructing nephrolithiasis. 5 mm nonobstructing nephrolith lower pole Height: 5.31 cm Length: 11.38 cm Width: 5.93 cm Urinary bladder measures 8.4 x 9.2 x 7.6 cm a volume of 111 mL. The prostate gland measures 4.9 x 3.0 x 4.6 cm. Heterogeneous echotexture with no focal mass US/US renal BI IMPRESSION: 5 mm nonobstructing left nephrolith Electronically authenticated by: CAPRICE CUEVA Date: 11/05/2023 07:39 Dictated By: Caprice Cueva M.D. Signed By: 11/05/23 0742 DD/ 0739 TD/TT: Mine Foreman:KEENAHRadiology, Radiologist, - 11/05/2023 [place] [address] Ultrasound Report Signed Patient: FIONA CALDWELL MR#: [id number] : 1955 Acct:[id number] Age/Sex: 68 / M ADM Date: 11/02/23 Loc: RAD Attending Dr: Gladis Gutierrez M.D. Ordering Physician: Gladis Gutierrez M.D. Date of Service: 11/02/23 Procedure(s): US renal BI Accession Number(s): [id number] cc: VÍCTOR MAGDALENO ; Gladis Gutierrez M.D. [address] [address] Patient Name: FIONA CALDWELL MRN: [id number] date: 1955 Sex: M Assigned Patient Location: [facility] Current Patient Location: Accession/Order Number: [id number] Exam Date: 11/02/2023 18:38 Report Date: 11/05/2023 07:39 At the request of: GLADIS GUTIERREZ Procedure: US renal BI EXAMINATION: US renal BI HISTORY: Kidney stone COMPARISON: No relevant comparison available. TECHNIQUE: Ultrasound examination was performed of the bladder. FINDINGS: Right Kidney: Normal in size, contour and echotexture. The cortex measures 1.5 cm. No solid mass, hydronephrosis or obstructing nephrolithiasis. Height: 4.33 cm Length: 10.64 cm Width: 4.88 cm Left Kidney: Normal in size, contour and echotexture. The cortex measures 1.9 cm. No solid mass, hydronephrosis or obstructing nephrolithiasis. 5 mm nonobstructing nephrolith lower pole Height: 5.31 cm Length: 11.38 cm Width: 5.93 cm Urinary bladder measures 8.4 x 9.2 x 7.6 cm a volume of 111 mL. The prostate gland measures 4.9 x 3.0 x 4.6 cm. Heterogeneous echotexture with no focal mass US/US renal BI IMPRESSION: 5 mm nonobstructing left nephrolith Electronically authenticated by: CAPRICE CUEVA Date: 11/05/2023 07:39 Dictated By: Caprice Cueva M.D. Signed By: 11/05/2342 DD/ TD/TT: Mine Foreman: ASHLI HealthcareRadiology Study observation (narrative)[facility] HealthcareUS RENAL BI Ordered By: Radiologist Radiology on 67-76-5837[facility] Work Phone: XR ABDOMEN 1Von 93-99-8048[place] [address] XRay Report Signed Patient: FIONA CALDWELL MR#: [id number] : 1955 Acct:[id number] Age/Sex: 68 / M ADM Date: 11/02/23 Loc: RAD Attending Dr: Gladis Gutierrez M.D. Ordering Physician: Gladis Gutierrez M.D. Date of Service: 11/02/23 Procedure(s): XR abdomen 1V Accession Number(s): [id number] cc: VÍCTOR MAGDALENO ; Gladis Gutierrez M.D. The [place] [address] Patient Name: FIONA CALDWELL MRN: [id number] date: 1955 Sex: M Assigned Patient Location: RAD Current Patient Location: [facility] Accession/Order Number: [id number] Exam Date: 11/02/2023 16:55 Report Date: 11/05/2023 10:12 At the request of: GLADIS GUTIERREZ Procedure: XR abdomen 1V EXAMINATION: XR abdomen 1V HISTORY: Kidney stone COMPARISON: 06/21/2023 FINDINGS: KIDNEY/URETER - RIGHT: No visible renal or ureteral calcifications. KIDNEY/URETER - LEFT: 9 mm calcification lower pole of the left kidney PELVIS: No visible ureteral calcifications. Any visible calcifications favor phleboliths. BOWEL: No abnormal dilation or deviation. BONES: No acute abnormality. Moderate spondylosis OTHER: Negative. No abnormal gaseous collections. XR/XR abdomen 1V IMPRESSION: 9 mm left nephrolith Electronically authenticated by: CAPRICE CUEVA Date: 11/05/2023 10:12 Dictated By: Caprice Cueva M.D. Signed By: 11/05/23 1014 DD/ 1012 TD/TT: Mine Foreman:KEENAHRadiology, Radiologist, - 11/05/2023 [place] [address] XRay Report Signed Patient: FIONA CALDWELL MR#: [id number] : 1955 Acct:[id number] Age/Sex: 68 / M ADM Date: 11/02/23 Loc: RAD Attending Dr: Gladis Gutierrez M.D. Ordering Physician: Gladis Gutierrez M.D. Date of Service: 11/02/23 Procedure(s): XR abdomen 1V Accession Number(s): [id number] cc: VÍCTOR MAGDALENO ; Gladis Gutierrez M.D. [place] [address] Patient Name: FIONA CALDWELL MRN: [facility]:[id number] date: 1955 Sex: M Assigned Patient Location: RAD Current Patient Location: RAD Accession/Order Number: [id number] Exam Date: 11/02/2023 16:55 Report Date: 11/05/2023 10:12 At the request of: GLADIS GUTIERREZ Procedure: XR abdomen 1V EXAMINATION: XR abdomen 1V HISTORY: Kidney stone COMPARISON: 06/21/2023 FINDINGS: KIDNEY/URETER - RIGHT: No visible renal or ureteral calcifications. KIDNEY/URETER - LEFT: 9 mm calcification lower pole of the left kidney PELVIS: No visible ureteral calcifications. Any visible calcifications favor phleboliths. BOWEL: No abnormal dilation or deviation. BONES: No acute abnormality. Moderate spondylosis OTHER: Negative. No abnormal gaseous collections. XR/XR abdomen 1V IMPRESSION: 9 mm left nephrolith Electronically authenticated by: CAPRICE CUEVA Date: 11/05/2023 10:12 Dictated By: Caprice Cueva M.D. Signed By: 11/05/23 1014 DD/ 1012 TD/TT: Mine Foreman: ASHLI HealthcareRadiology Study observation (narrative)[facility] HealthcareXR ABDOMEN 1VOrdered By: Radiologist Radiology on [id number] Work Phone: cNOVon [phone] Visit (ENDOAV) --------FIONA CALDWELL ([id number]) 1955 MDate Time Provider Department03/29/17 11:20 AM JESSICA SUH During your visit today, we recorded the following information about you: Pulse Respiration Blood pressure Weight 77/minute 16/minute 130/92 99.2 kg Height 1.88 Alfredo Suh MD 03/29/2017 11:40 AM SignedSelf referralHISTORY OF PRESENT ILLNESS:Fiona Caldwell is here for evaluation of hypothyroidism. [...] or double visionDysphagia: NoNew neck lump: NoVoice change:NoDyspnea: NoCough: NoPalpitations: NoTremor: NoHeat intolerance: NoCold intolerance: [...] shinsfew months ago but resolved.MUSCULO-SKELETAL: No joint pain,stiffness, swelling, cramping or weaknessNERVOUS SYSTEM: no numbness, paresthesias, weakness, cramping, burning ordizzinessDEPRESSION: noPHYSICAL EXAM:BP 130/92 Pulse 77 Resp 16 Ht 6' 2ANDquot;(1.88m) Wt 218 lb 12.8 oz(99.2kg) BMI 28.08 kg/(m2).APPEARANCE: Well appearing, alert, in no acute distress, well- hydrated, wellnourished.EYES TREVOR, extra occular movements normalHENT:NCAT, OP [...] male with hypothyroidism. He is clinically and biochemicallyeuthyroid.-Continue current levothyroxine dose- Reviewed appropriate way to take levothyroxine-Recommend TSH annually [...] to improve.Follow-up and Disposition History RecordedEncounter Number: [id number] Status:Closed by JESSICA SUH MD on 03/29/17NoDoctors HospitalPROGRESSon 49-06-6626HKJJDOZSPTR ID: [id number]: Jessica Gabriel: (none)Author Type: PhysicianType: Progress Notes Filed: 03/29/2017 11:40 AMNote Text:Self referralHISTORY OF PRESENT ILLNESS:Fiona Caldwell is here forevaluation of hypothyroidism. He was diagnosedapproximately 8 years [...] well.He has repeat blood work in 01/2017 a nd TSH was in normal range at 3.59.He [...] male with hypothyroidism. He is clinically and biochemicallyeuthyroid.-Continue current levothyroxine dose-Reviewed appropriate way to take levothyroxine- Recommend TSH annually or sooner if concerning symptoms-Follow up prnNormal [facility] Vital Signs Date TimeVital SignValuePerforming FuxrdtvrjAdrfemfd72-06-3690 09:09-0500Body uwmnmy792 cmRmary Magdaleno MD Work Phone: [phone] [place], [place] [address]Xzgqashaet86-18-2798 09:09-0500Body mass index (BMI) [Ratio]27.22 kg/i2OqhooVíctor Magdaleno MD Work Phone: [phone] [place], [place] [address]Flhbagejar23-32-5440 09:09-0500Body .16 kgVíctor Magdaleno MD Work Phone: [facility] CenterUunyolexws14-49-3489 09:09-0500Diastolic blood mm[Hg]Víctor Magdaleno MD Work Phone: [phone] [place], [place] [address]Jebzdodslz59-72-7817 09:09-0500Heart rate61 /min Víctor Magdaleno MD Work Phone: [phone]-[address] [place], [place] [address]Sudkbwxkzl59-13-9386 09:09-6813HpF3% (BldA) [Mass fraction]100 %Víctor Magdaleno MD Work Phone: [facility] CenterRkmdwacgih89-43-4373 09:09-0500Systolic blood otlfsvvt733 mm[Hg]Víctor Magdaleno MD Work Phone: [phone] Bomb DealsSt. Louis VA Medical CenterGbdyykubpo99-30-1904 09:29-0400Body vollos349 cm Makenna Fajardo [employer] WORKER Work Phone: [facility] HospitalMjquyrlevu50-10-5923 09:29-0400Body mass index (BMI) [Ratio]27.35 kg/h9GpsvvaMakenna Fajardo NP Work Phone: [phone] Bomb DealsNOGolden Valley Memorial HospitalOjquztqbar98-80-0396 09:29-0400Body .62 kgMakenna Fajardo [employer] WORKER Work Phone: NO[facility] HospitalRezdzmnsta91-65-6737 09:29-0400Diastolic blood yzhjnhod60 mm[Hg]Makenna Fajardo NP Work Phone: NOGold[facility] HospitalPuybhqmjio12-77-3613 09:29-0400Heart rate75 /min Makenna Fajardo [employer] WORKER Work Phone: NOGold[facility] HospitalIwygoqtsxh05-10-8483 09:29-1307BrB6% (BldA) [Mass fraction]98 %Makenna Fajardo [employer] WORKER Work Phone: NOGold[facility] HospitalWxkfwdpgxa92-01-6230 09:29-0400Systolic blood ujvzqxsl595 mm[Hg]Makenna Fajardo [employer] WORKER Work Phone: NOGold[facility] HospitalLzbrouwduf66-39-9633 08:12-0400Diastolic blood mm[Hg]REEDNEDA DUARTE-AMANKRA [facility]09-27-2024 08:12-0400Heart rate84 /minKWABENA NKANSAH-AMANKRA [facility]09-27-2024 08:12-0400Respiratory rate16 /minKWABENA NKANSAH-AMANKRA [facility]09-27-2024 08:12-0400Systolic blood pobqwywu865 mm[Hg]REED NKANSAH-AMANKRA [facility]04-21-2024 12:07-0400Body .96 [facility]20[facility] 12:07-0400Body mass index (BMI) [Ratio]28.8 kg/j9UnlvrtkekAvita [facility]04-21-2024 12:07-0400Body mjjqomfwtqa833.7 [degF] [facility]04-21-2024 12:07-0400Body .05 kg [facility]04-21-2024 12:07-0400Heart uuzw308 /min [facility]04-21-2024 12:07-0400Respiratory rate18 /min [facility]04-21-2024 12:6145PsW5% (BldA) [Mass fraction]95 %[facility] Encounters Encounter DateEncounter TypeCare ProviderFacilityStart: 12-30-2024 End: 92-55-6367Vpmnhj Jovanna Magdaleon MD Work Phone: NOIO [place] [facility] MedinceStart: 12-30-2024 End: 03-04-9480Vpfueh flowsRamonita Magdaleno MD Work Phone: [facility] [place] [facility] MedinceStart: 12-30-2024 End: 34-77-3825Jvbpg of hemosiderin, Domenica Magdaleno MD Work Phone: NOPI HealthcareStart: 12-30-2024 End: 63-04-6660Hysrcxt encounter procedureVíctor Magdaleno MD Work Phone: NOMU [place] [facility] MedinceComment on above:Routine general medical examination at health care facility (Primary Dx); Acquired hypothyroidism; Stage 3a chronic kidney disease (CKD) (CMS-HCC); Pulmonary embolus, left (HCC); Abnormal fasting glucoseStart: 12-30-2024 End: 75-40-5734sgeyawykpwKWHTL M ALDANot AvailableStart: 12-20-2023 End: 94-41-7153Xbvuuerfy encounterAriana DIGGS Work Phone: [facility] CI FMStart: 12-19-2023 End: 14-08-1449Wfeichqad Result EncounterSconstanza Fajardo [employer] WORKER Work Phone: [facility]OMS External Department UnsolicitedStart: 12-19-2023 End: 88-01-3175Ljriypuqn Result EncounterSconstanza Fajardo [employer] WORKER Work Phone: [facility] External Department UnsolicitedStart: 12-18-2023 End: 05-80-3470Aaohxfsut Result EncounterSconstanza Fajardo [employer] WORKER Work Phone: [facility] External Department UnsolicitedStart: 12-18-2023 End: 39-77-0961Ntoyibnxq Result EncounterSconstanza Fajardo [employer] WORKER Work Phone: [facility] External Department UnsolicitedStart: 12-18-2023 End: 55-71-1799Hphsitv encounter procedureYariel Hernandez DO Work Phone: NOFD SWS UCComment on above:Encounter for immunization Start: 12-05-2023 End: 01-08-0530Negtsj flowsJohn Fajardo [employer] FA[employer]ORY WORKER Work Phone: [facility] CI FMStart: 12-05-2023 End: 99-06-8578Izbfof flowsJohn Fajardo [employer] FA[employer] WORKER Work Phone: [facility] CI FMStart: 12-05-2023 End: 91-19-1657Yubpv of hemosiderin, quantShevelyn Fajardo [employer] FA[employer] WORKER Work Phone: NOMS HealthcareStart: 12-05-2023 End: 99-84-4023Uzdtjrc encounter procedureSconstanza Fajardo [employer] WORKER Work Phone: [facility] CI FMComment on above:Medicare annual wellness visit, initial (Primary Dx); Nocturia; Screening for lipid disorders; Screening for colon cancer; Hypothyroidism, unspecified type (CMS/HCC); Acquired hypothyroidism (CMS/HCC); History of pulmonary embolism; Pure hypercholesterolemia (CMS/HCC); Encounter for hepatitis C screening test for low risk patient; Routine general medical examination at health care facilityStart: 11-23-2023 End: 79-25-6672sogfcqtvepMHQTNJQ NKANSAH-AMANKRAFacility:FTMCStart: 11-23-2023 End: 62-55-4601Vno Drop offREED DUARTE-MIGUEL [facility] Start: 11-23-2023 End: 12-43-2606Xjnnwnr encounter procedureREED DUARTE-MIGUEL [facility] Latricia Start: 11-05-2023 End: 03-19-0167Tqcdmfmxq Result EncounterGeneric External Data ProviderNOMS External Department UnsolicitedStart: 11-05-2023 End: 78-69-0114Fuxoikpze Result EncounterGeneric External Data ProviderNOMS External Department UnsolicitedStart: 06-17-2023 End: 70-62-0873fawwmsuzphThgfsbknvWayne Hospital Work Phone: Start: 06-17-2023 End: 86-12-1153Lwgabzc encounter procedureNov[facility] [place] Work Phone: Start: 03-29-2017 End: 79-16-9283ZqpdatnpavGNVNDA NY[facility] Procedures DateProcedureProcedure DetailPerforming ClinicianStart: 28-13-6303Ki angiography chest w/contrast/noncontrastSherri Patria Fajardo [employer] WORKER Work Phone: Start: 67-15-2187IBO CREATININESherri Patria Fajardo [employer] FA[employer] WORKER Work Phone: Start: 37-61-8384IB ABDOMEN 1VGeneric External Data ProviderStart: 62-47-5872ZN RENAL BIGeneric External Data Provider Plan of Treatment DateCare ActivityDetailAuthorStart: 12-30-2024 End: 27-66-9705XM Chest WO and W contrast IVCT chest w and wo IV contrast Imaging Routine Pulmonary embolus, left (HCC) Expected: 12/30/2024, Expires: 12/30/2025[facility] Work Phone: Comment on above:Expected: 12/30/2024, Expires: 12/30/2025Start: 12-30-2024 End: 14-59-8416Hmonrni encounter procedureNOMS [facility] MedinceComment on above:ArrivedStart: 76-22-8801Ttzfjqjsh vaccinationInfluenza Vaccine (#1)NOMS HealthcareStart: 12-18-2023 End: 57-07-8343Mfvkptf encounter eyhnpcbrl58/22/2024 9:00 AM EDT Office Visit [facility] [address] [place] [address] Encounter for immunizationNOHOAG MEMORIAL [facility]ITAL PRESBYTERIANComment on above:Encounter for immunization Start: 12-05-2023 End: 45-45-0808XV Chest W contrast IV and CT angiogram Pulmonary arteries for pulmonary embolus W contrast IVCT chest pulmonary embolism w IV contrast Imaging Routine History of pulmonary embolism Expected: 12/05/2023, Expires: 12/04/2024 NOM HealthcareComment on above:Expected: 12/05/2023, Expires: 12/04/2024Start: 12-05-2023 End: 75-51-3584NFJOESOHS C AB W/RFL RNS, PCR W/RFL GENOTYPE,LIPAHEPATITIS C AB W/RFL RNS, PCR W/RFL GENOTYPE,LIPA Lab Routine Encounter for hepatitis C screening test for low risk patient Expected: 12/05/2023 (Approximate), Expires: 12/04/2024NOMT HealthcareComment on above:Expected: 12/05/2023 (Approximate), Expires: 12/04/2024Start: 12-05-2023 End: 49-27-1578Uyyqt 1996 panel - Serum or PlasmaLipid panel Lab Routine Medicare annual wellness visit, initial Screening for lipid disorders Expected: 12/05/2023 (Approximate), Expires: 12/04/2024[facility] Work Phone: Comment on above:Expected: 12/05/2023 (Approximate), Expires: 12/04/2024Start: 12-05-2023 End: 15-66-2273Iftwohqa specific Ag [Mass/volume] in Serum or PlasmaPSA Lab Routine Nocturia Medicare annual wellness visit, initial Expected: 12/05/2023 (Approximate), Expires: 12/04/2024[facility] HealthcareComment on above:Expected: 12/05/2023 (Approximate), Expires: 12/04/2024Start: 12-05-2023 End: 44-61-8627NHF W/REFLEX TO FT4TSH W/REFLEX TO FT4 Lab Routine Medicare annual wellness visit, initial Hypothyroidism, unspecifiedtype (CMS/HCC) Expected: 12/05/2023 (Approximate), Expires: 12/04/2024NOMT HealthcareComment on above:Expected: 12/05/2023 (Approximate), Expires: 12/04/2024Start: 12-05-2023 End: 73-03-7949Jtjsstq encounter juzokjltm64/09/2024 9:30 AM EDT Office Visit [facility] [address] [facility] [address] [place] [address] Makenna Fajardo NP [address] [facility] [address] [place] [address] ArrivedNOMT CI FMComment on above:ArrivedStart: 50-83-7967Fnbncmfzt vaccinationInfluenza Vaccine (#1)[facility] HealthcareStart: 68-47-5803Jksvzwgtn for malignant neoplasm of colonNOMT HealthcareNoninvasive colorectal cancer DNA and occult blood screening [Presence] in StoolCologuard colon cancer screening Lab Routine Screening for colon cancer Ordered: 12/05/2023NOMT HealthcareComment on above:Ordered: 12/05/2023[facility] Immunizations Immunization DateImmunizationNotesCare SnehjkncVbyatlcv58-33-6380Jkxkmrknm, injectable, Madin Candor Canine Kidney, preservative free, quadrivalentBreterrrick Fajardo NP Work Phone: [facility] CenterXkvschuuja21-54-3344opdgbhomk virus vaccine, unspecified formulationGeneric ProviderSt. [facility] Medical CenterQddinesiib15-67-5861bcmdgetrlskm 20- valent conjugate vaccineKPOLINA DUARTE-MIGUEL [facility]04-14-2021SARS-CoV-2 (COVID-19) mRNA-1273 vaccineKREREBENA NKELENOAH-AMANKRA [facility]03-17-2021SARS-CoV-2 (COVID-19) mRNA-1273 vaccineKREREBENA NKELENOAH-AMANKRA [facility]10-02-2020influenza virus vaccine, unspecified formulationKWALESLIE KATE [facility]10-02-2020Influenza, injectable, Madin Claudia Canine Kidney, preservative free, quadrivalentSherri Tana [employer] WORKER Work Phone: [facility] Payers DatePayer CategoryPayerPolicy ID2019Medicare [id number] [id number] 2018 [facility] Subscriber Plan / Payer (Effective 2017- Present) Name: Fiona Caldwell Relation to Subscriber: Self Name: Caldwell Fiona F Payer ID:Not on file Type: Not on file Address: [address] [place] [id number]. [facility] [id number] 2017-Present [phone] [address] [place] [id number] /[id number] Social History DateTypeDetailFacilityStart: 06-17-2023 End: 42-34-1218Uzmtmwt smoking status NHISNever smoked tobacco (finding) [facility] Hospitaltart: 19-03-2087Srb [facility]art: 20-98-9153Eijizqh smoking statusNever [facility] HospitalyStart: 12-05-2023 End: 50-27-3309Ddv Assigned At [facility] HospitalTobacco smoking status NHISTobacco smoking consumption unknownNOMS HealthcareStart: 03-60-1207Liq assigned at birthNot on fileNOMS HealthcareStart: 12-05-2023 End: 82-06-7044Yvekdtp of Social functionNOMS HealthcareStart: 84-91-8326Znkehpj use and exposureSmokeless tobacco non-userNOMT Healthcare Functional Status DslmSpyuyeyhimGfzqshUdaduwjg98-55-0992Lexhnfo Health Questionnaire 2 item (PHQ- 2) [Reported][facility] Wyrajftuwd67-44-1380Egwrtvc Health Questionnaire 2 item (PHQ- 2) [Reported][facility] CenterGaleiqnvrl74-02-3145Gkjngwvcli StatusN/AExec[facility] Clinical Notes 11-23-2023 to 12-30-2024 Note Date & KohfQxjlGwvdtzwa33-52-2713 History of Present illness Narrative* Víctor Magdaleno MD - 12/30/2024 9:26 AM ESTAssociated Problem(s): Abnormal fasting glucose Normal 2 weeks ago * Víctor Magdaleno MD - 12/30/2024 9:23 AM ESTAssociated Problem(s): Pulmonary embolus, left (HCC) On Anticoagulation Watch for bleeding Reviewed CT scan showing changes within the lungs during Hospitalization CT Scan of 11/2023 resolved New clear etiology No Family History * Víctor Magdaleno MD - 12/30/2024 9:21 AM ESTAssociated Problem(s): Stage 3a chronic kidney disease (CKD) ([facility]) Avoid NSAIDs such as Ibuprofen, Motrin, Naprosyn. Increase fluids. * Víctor Magdaleno MD - 12/30/2024 9:19 AM ESTAssociated Problem(s): [...] Aorta to screen for Anuerysm * Víctor Magdaleno MD - 12/30/2024 9:00 AM EST Images from the original note were not included. Subjective : Chief Complaint: Fiona Caldwell is an 69 y.o. male here for an annual wellness visit. Reynoldd Anamika Stephens have reviewed and reconciled the history and [...] current healthcare providers: Patient Care Team: Víctor Magdaleno MD as PCP - General (Family Medicine) Medicare Annual Visit Over the past 2 weeks, how often have you been bothered by any of the following problems? Little interest or pleasure in doing things: Not at all Feeling down, depressed, or hopeless: Not at all Patient Health Questionnaire-2 Score: 0 Miranda Fall Risk History of Falling, Immediate or [...] by direct observation Three Word Registration: Banana, [place], Chair Clock Drawing: Normal Clock - 2 Three Word Recall: All 3 words correct - 3 Total Score (0-5 Points): 5 Pain Assessment Pain Score: 0 - No pain Advance Care Planning Do you have a living will?: No Do you have a medical power of tax associate attorney?: No Objective : BP 138/82 Pulse 61 Ht 6' 2 Wt 212 lb SpO2 100% BMI 27.22 kg/m No results found. Physical Exam Vitals reviewed. [...] Anuerysm Stage 3a chronic kidney disease (CKD) ([facility]) Avoid NSAIDs such as Ibuprofen, Motrin, Naprosyn. [...] Atelectasis and PE Electronically signed by Víctor Magdaleno MD on December 30, 2024 documented in this encounterSt. Louis VA Medical CenterEgplmavpgm67-99-9092 Telephone encounter Note* Telephone Encounter - CATERINA Morales - 12/20/2023 9:11 AM EDT Patient called and LM regarding Levothyroxine Rx. Called and confirmed with [facility] that they have the Rx on file. Called and notified pt that the Rx was sent in for him on 12/06 by Makenna and that pharmacy verified that they have it. He voiced understanding. [facility] CenterGfxgkctwso95-38-6364 Miscellaneous Notes* Telephone Encounter - CATERINA Morales - 12/20/2023 9:11 AM EDT Patient called and LM regarding Levothyroxine Rx. Called and confirmed with [facility] that they have the Rx on file. Called and notified pt that the Rx was sent in for him on 12/06 by Makenna and that pharmacy verified that they have it. He voiced understanding. documented in this encounterSt. Louis VA Medical CenterMalqcfnfyy58-57-2823 History of Present illness Narrative* Beny Trejo - 12/18/2023 9:00 AM EDT Pt presents today for a flu immunization. Pt denies any acute issues at this time. documented in this encounterSt. Louis VA Medical CenterXnrrlnkqgv68-11-2223 History of Present illness Narrative* Makenna Fajardo NP - 12/05/2023 9:30 AM EDT Images from the original note were not included. Subjective Patient ID: Fiona Caldwell is a 68 y.o. male who presents for Medicare Annual Wellness Visit Initial(Pt BP today is 152/102). Here for wellness, [...] All needed testing was ordered. Will continue withyearly Medicare Wellness exams. Screening for lipid disorders [...] All needed testing was ordered. Will continue withyearly Medicare Wellness exams. documented in this encounterSt. Louis VA Medical CenterBvpeexjzab07-45-8319 Evaluation + Plan note Diagnostic Tests Pending * Urinalysis with Micro 06/26/24 * Basic Metabolic Panel 11/23/23 [facility] Latricia 09-27-2024 Hospital Discharge instructions Patient Education 11/23/2023 08:33:11 Dietary Guidelines [...] about 300 mg of calcium at each meal.Foods that contain 200 500 mg of calcium a serving include: ?8 oz (237 mL) of milk, fduhpfm-ditvmjijvfzp-tftxg milk, and calcium- fortifiedfruit juice. Calcium-fortified means that calcium has been [...] the table and allow each person to addtheir own salt to taste. Use vegetable protein, such as beans, textured vegetable protein (TVP), or tofu, instead of meat inpasta, casseroles, and soups. Meal planning Eat less salt, if told by your dietitian. To do this: ?Avoid eating processed or pre-made food. ?Avoid eating fast food. Eat less animal protein, including cheese, meat, poultry, or fish, if told by your dietitian. To dothis: ?Limit the number of times you have meat, poultry, fish, or cheese each week. Eat a diet free of meat at least 2 days a week. ?Eat only one serving each day of meat, poultry, fish, or seafood. ?When you prepare animal proteins, cut pieces into small portion sizes. For most meat and fish, oneserving is about the size of the palm [...] ?Spinach (cooked), rhubarb, beets, sweet potatoes, and Swazi chard. ?Peanuts. ?Potato chips, luxembourgish fries, and baked potatoes with skin on. ?Nuts and nut products. ?Chocolate. If you regularly take a diuretic medicine, make sure to eat at least 1 or 2 servings of fruits or vegetables that are high in potassium each day. These include: ?Avocado. ?Banana. ?[place], prune, carrot, or tomato juice. ?Baked potato. [...] magnesium, fish oil, or vitamin B6. Take wvda-lgu-hsojbij and prescription medicines only as told by [...] Casseroles. Pizza. Lasagna. Frozen meals. Potato chips. Syriac fries. The items listed above may not be a complete list of foods and beverages you should limit. Contact a dietitian for more information. What foods should I avoid? Talk to your dietitian about specific foods you should avoid based on the type of kidney stones youhave and your overall health. Fruits Grapefruit. The item listed above may not be a complete list of foods and beverages you should avoid. Contact adietitian for more information. Summary Kidney stones are [...] provider. Document Revised: 05/25/2022 Document Reviewed: 05/25/2022 [employer] Patient Education 2023 [employer]icker. Follow Up Care 11/20/2023 10:57:19 With:REED KATE MD, URL Address: When: Unknown [facility] Evaluation + Plan note No data available for this section [facility] Evaluation noteNo assessment information available [facility] Work Phone: Evaluation note* Diagnosis Medicare annual wellness visit, initial- Primary [...] health care facility documented in this encounter [facility] HealthcareEvaluation note* Diagnosis Encounter for immunization documented in this encounter [facility] HealthcareEvaluation note* Diagnosis Routine general medical examination at health care facility- Primary Routine general medical examination at a health care facility Acquired hypothyroidism Unspecified hypothyroidism Stage 3a chronic kidney disease (CKD) (CMS-HCC) Pulmonary embolus, left (HCC) Other pulmonary embolism and infarction Abnormal fasting glucose documented in this encounter [facility] HealthcareHospital Discharge instructions No data available for this section [facility] Progress note No data available for this section [facility] Summary Purpose Family History No Family History Records Found No data available for this section No data available for this section No Family History Records FoundNo Family History Records FoundNo Family History Records FoundNo Family History Records Found Advance Directives No Advanced Directives Records Found Advance Directive Response Recorded Date/ Time Advance Directives No June 16 2 024 11:57am Chief Complaint and Reason for Visit Chief Complaint Cough, Congestion, F ever, Bodyache Reason for Referral SpecialtyDiagnoses / ProceduresReferred By ContactReferred To Contact Diagnoses History of pulmonary embolism Procedures CT chest pulmonary embolism w IV contrast Makenna Fajardo, CHUCK [address] [facility] [address] [place] [address] [place] [facility] [address] [place] [address] Phone: [phone] Referral IDStatusReasonStart DateExpiration DateVisits RequestedVisits [id number] [id number] Additional Source Comments (unrecognized sect ion and content) No Status Records FoundNo Status Records FoundNo Status Records FoundNo Status Records FoundNo Status Records Found INFORMATION SOURCE (unrecogn ized section and content) DATE CREATED AUTHOR 08/20/2017 [facility] DATE CREATED AUTHOR AUTHOR'S ORGANIZ ATION 12/01/2023 [facility] DATE CREATED AUTHOR AUTHOR'S ORGANIZ ATION 12/05/2024 [facility] DATE CREATED AUTHOR AUTHOR'S ORGANIZ ATION 12/20/2024 [facility] DATE CREATED AUTHOR AUTHOR'S ORGANIZ ATION 12/31/2024 [facility] Care Teams (unrecognized sec tion and content) Team Status: Active Member Role Status Dates Víctor Magdaleno MD Primary Care Provider Active Team Status: Inactive Member Role Status Dates Carito Velasquez APRN Attending Provider Active Start: June 17, 2023 End: June 16Lanny Serrato Care ProviderActiveStart: June 17, 2023 End: June 17, 2023Team MemberRelationshipSpecialtyStart DateEnd Date Víctor Magdaleno MD [address] [facility] [address] [place] [address] PCP - GeneralFamily Medicine07/04/22 Laure Johnson NP [address] [facility] [address] [place] [address] PCP - [place] [employer]08/27/23Team MemberRelationshipSpecialtyStart DateEnd Date Víctor Magdaleno MD [address] [place] [address] PCP - [facility] Medicine07/04/22 Laure Johnson, CHEESE FACTORY WORKER [address] [place] [address] PCP - [place] [employer]08/27/23Team MemberRelationshipSpecialtyStart DateEnd Date Víctor Magdaleno MD [address] [place] [address] PCP - [facility] Medicine07/04/22 Laure Johnson, CHEESE FACTORY WORKER [address] [place] [address] PCP - [place] [employer]08/27/23Team MemberRelationshipSpecialtyStart DateEnd Date Víctor Magdaleno MD [address] [place] [address] PCP - [facility] Medicine07/04/22 Laure Johnson, CHEESE FACTORY WORKER [address] [place] [address] PCP - [place] [facility]08/27/23Team MemberRelationshipSpecialtyStart DateEnd Date Víctor Magdaleno MD [address] [place] [address] PCP - [facility]07/04/22 Laure Johnson, CHEESE FACTORY WORKER [address] [place] [address] PCP - [place] [facility]08/27/23Team MemberRelationshipSpecialtyStart DateEnd Date Víctor Magdaleno MD [address] [place] [address] PCP - [facility]07/04/22 Laure Johnson, CHEESE FACTORY WORKER [address] [place] [address] PCP - [place] CommercialTeam MemberRelationshipSpecialtyStart Date End Date Víctor Magdaleno MD [address] [place] [address] [facility] Laure Johnson, CHEESE FACTORY WORKER [address] [place] [address] PCP - [place] CommercialTeam MemberRelationshipSpecialtyStart Date End Date Víctor Magdaleno MD [address] [place] [address] PCP - [facility]07/04/22Team MemberRelationshipSpecialtyStart DateEnd Date Víctor Magdaleno MD [address] [place] [address] PCP - [facility]07/04/22 Goals (unrecognized section and content) Goals may be documented in a n alternate section No data available for this section No data available for this section Reason for Visit (unrecogniz ed section and content) ReasonCommentsMedicare Annual Wellness Visit InitialPt BP today is 152/102Reason CommentsMedicare Annual Wellness Visit SubsequentQuestions on lab work for his TSH FOR RECORDS PERTAINING TO PATIENTS WHO ARE [...] BE BASED ON THE PRIMARY CLINICAL RECORDS. [facility]. provides no warranty or guarantee of the accuracy or completeness of information in this document.
--- OUTSIDE RECORDS SUMMARY | 2025-01-06 07:50 | XMS_ITS | Encounter Summary ---
Author Organization [facility] Address [address] [place] [address] Care Team Providers Care Steersman Name Role Phone Víctor Field MD Primary Care Provider [phone] Encounter Details DateTypeDepartmentCare Team (Latest Contact Info)Wuetysnnsps27/04/2025Travel Social History Tobacco UseTypesPacks/DayYears UsedDateSmoking Tobacco: NeverSmokeless Tobacco: NeverPHQ-2AnswerDate RecordedPatient Health Questionnaire-2 Tfgqr88403/01/2024Sex and Gender InformationValueDate RecordedSex Assigned at BirthNot on fileLegal BxaVaya0705/10/2022 6:38 PM EDTGender IdentityNot on fileSexual OrientationNot on filedocumented as of this encounter Functional Status * Over the past 2 weeks, how often have you been bothered by any of the following problems?QuestionAnswerDate of AssessmentAuthorLittle interest or pleasure in doing thingsNot at all12/30/2024 9:00 AM Belem De Leon MA Feeling down, depressed, or hopelessNot at all12/30/2024 9:00 AM Belem De Leon MAPatient Health Questionnaire-2 Lqavm08303/01/2024 9:00 AM Belem De Leon MA documented as of this encounter Plan of Treatment Not on file documented as of this encounter Visit Diagnoses Not on filedocumented in this encounter Care Teams Team MemberRelationshipSpecialtyStart DateEnd Date Víctor Field MD [address] [facility] [address] [place] [address] PCP - GeneralFamily Medicine07/04/22documented as of this encounter
--- OUTSIDE RECORDS SUMMARY | 2025-01-06 07:50 | XMS_ITS | Encounter Summary ---
Author Organization [facility] Address [address] [facility] [place] [address] Care Team Providers Care Lead Dental Assistant Name Role Phone Víctor Field MD Primary Care Provider Encounter Details DateTypeDepartmentCare Team (Latest Contact Info)Ggspxvxtsfj17/04/2025amboo flowsheet [facility] [place] [facility] [address] [place] [address] Víctor Field MD [address] [place] [address] Social History Tobacco UseTypesPacks/DayYears UsedDateSmoking Tobacco: NeverSmokeless Tobacco: NeverPHQ-2AnswerDate RecordedPatient Health Questionnaire-2 Ynlsx87203/01/2024Sex and Gender InformationValueDate RecordedSex Assigned at BirthNot on fileLegal IvrOgxk4305/10/2022 6:38 PM EDTGender IdentityNot on fileSexual OrientationNot on filedocumented as of this encounter Plan of Treatment Not on file documented as of this encounter Visit Diagnoses Not on filedocumented in this encounter Care Teams Team MemberRelationshipSpecialtyStart DateEnd Date Víctor Field MD [address] [place] [address] PCP - GeneralFamily Medicine07/04/22documented as of this encounter
--- OUTSIDE RECORDS SUMMARY | 2025-01-06 07:50 | XMS_ITS | Clinical Summary ---
Author Organization [facility] Address [address] [place] [address] Care Team Providers Care Rides Supervisor Name Role Phone Víctor Field MD Primary Care Provider [phone] Allergies Active AllergyReactionsCriticalityNoted DateCommentsAspirinSwellingHigh 03/29/2017 Other Reaction(s): Anaphylaxis, Face Swells Throat and eyes swell KtjjxIvumFsh06/01/8738FrcrzuvvMatxGug13/01/6629PksyksvzyilOwti35/01/2018 Other Reaction(s): Unknown Medications MedicationSigDispense QuantityRefillsLast FilledStart DateEnd DateStatus apixaban (Eliquis) 5 MG tablet Indications:History of pulmonary embolismTake 1 tablet (5 mg) by mouth in the morning and 1 tablet (5 mg) before bedtime. 200 tablet 5Active levothyroxine (Synthroid, Levoxyl) 100 MCG tablet Indications:Acquired hypothyroidismTake 1 tablet (100 mcg) by mouth in the morning. 100 tablet 5Active albuterol (2.5 MG/3ML) 0.083% nebulizer solution Indications:Community acquired pneumonia, bilateral,SOB (shortness of breath) Take 3 mL (2.5 mg) by nebulization in the morning and 3 mL (2.5 mg) at noon and 3 mL (2.5 mg) in the evening and 3 mL (2.5 mg) before bedtime. Do all this for 14 days. 168 mL Discontinued(Other) albuterol (2.5 MG/3ML) 0.083% nebulizer solution Indications:Atelectasis, bilateral,History of pneumoniaTake 3 mL (2.5 mg) by nebulization every 6 (six) hours if needed for wheezing or shortness of breath 75 mL 1105//39563203/01/2024Discontinued(Other) levothyroxine (Synthroid, Levoxyl) 100 MCG tablet Indications:Acquired hypothyroidismTAKE 1 TABLET BY MOUTH EVERY MORNING 100 tablet Discontinued(Reorder) Active Problems ProblemNoted DateDiagnosed DateRoutine general medical examination at health care zfmrusxw14/04/2025 Assessment & Plan (12/30/2024 9:19 AM EST): Colonoscopy every 10 years or Cologuard every [...] for Anuerysm Stage 3a chronic kidney disease (CKD)12/30/2024 Assessment & Plan (12/30/2024 9:21 AM EST): Avoid NSAIDs such as Ibuprofen, Motrin, Naprosyn. Increase fluids. Pulmonary embolus, left12/30/2024 Assessment & Plan (12/30/2024 9:41 AM EST): On Anticoagulation Watch for bleeding Reviewed CT scan showing changes within the lungs during Hospitalization CT Scan of 11/2023 resolved New clear etiology No Family History Abnormal fasting zsbwqir3212/30/2024 Assessment & Plan (12/30/2024 9:26 AM EST): Normal 2 weeks ago Acute renal failure arwfwucm14/04/2024ecreased liver vazxxndn04/19/2023 Mmeilokcuqxysh67/19/2023ure xmfclkyqkchvwkbyigoq31/19/2023 Encounters DateTypeDepartmentCare KjblMdgvseqokgl08/10/2025Telephone [facility] [address] [place] [phone] Víctor Field MD 01/05/2025Orders Only [facility] [address] [facility] [address] [place] [address] Víctor Field MD 01/01/2025bstract [facility] [address] [facility] [address] [place] [address] Víctor Field MD 12/30/2024 9:00 AM ESTOffice Visit [facility] [address] [facility] [address] [place] [address] Víctor Field MD Routine general medical examination at health care facility (Primary Dx); Acquired hypothyroidism; Stage 3a chronic kidney disease (CKD) (CMS-HCC); Pulmonary embolus, left (HCC); Abnormal fasting dytfyqj5412/30/2024amboo flowsheet [facility] [address] [facility] [address] [place] [address] Víctor Field MD 12/30/20245506Rygtlo63/23/2025Results Follow-Up [facility] [address] [facility] [address] [place] [address] Víctor Field MD CBC and differential, Comprehensive metabolic panel, PSA, Additional followed-up results: Telephone [facility] [address] [facility] [address] [place] [address] Víctor Field MD from Last 3 Months Immunizations ImmunizationAdministration DatesNext DueInfluenza, injectable, MDCK, preservative free, nqevhbvnetze97/22/2024,11/28/2019Pneumococcal Conjugate PCV Social History Tobacco UseTypesPacks/DayYears UsedDateSmoking Tobacco: NeverSmokeless Tobacco: Never Tobacco Cessation:Counseling Given: Not Answered PHQ-2AnswerDate RecordedPatient Health Questionnaire-2 Aguaz39603/01/2024Sex and Gender InformationValueDate RecordedSex Assigned at BirthNot on fileLegal Sex Male05/10/2022 6:38 PM EDTGender IdentityNot on fileSexual OrientationNot on file Last Filed Vital Signs Vital SignReadingTime TakenCommentsBlood Oubyltza684/8211 9:09 AM EST Ptdrv821312/30/2024 9:09 AM ESTTemperature--Respiratory Gozg017207/26/2023 8:07 AM EDTOxygen Ehgtrbghgv651%12/30/2024 9:09 AM ESTInhaled Oxygen Concentration-- Cosiiz16.2 kg (212 lb)12/30/2024 9:09 AM PCZLzggix190 cm (6' 2 )12/30/2024 9:09 AM ESTBody Mass Index27.22103/01/2024 9:09 AM EST Plan of Treatment Health MaintenanceDue DateLast DoneCommentsCT Mlghosqhmdkf1955Colonoscopy 1955olorectal Cancer Yxecfkraf1954FIT-DNA1955FIT1955 FOBT1955 5131Hstguvglmazpq1954Medicare Annual Wellness (AWV)12/30/2025 12/30/2024, 12/05/2023OVID-19 CbvprqcAdzpagdsowyd59/14/2021, 05/12/2020 Pneumococcal Vaccine: 65+ NlttjRylzgoxhc91/20/2024Influenza VaccineCompleted 12/23/2024, 12/18/2023, 11/28/2019 Procedures Procedure NamePriorityDate/TimeAssociated DiagnosisCommentsT4, FREERoutine 12/10/2024 8:54 AM EDT TSH W/REFLEX TO PD5Npagyyp39/15/2025 8:54 AM EDT Medicare annual wellness visit, initial Acquired hypothyroidism LIPID WDMWTMncsofd88/15/2025 8:54 AM EDT Medicare annual wellness visit, initial Pure hypercholesterolemia PSA, RIBYOVnwadie85/15/2025 8:54 AM EDT Medicare annual wellness visit, initial Screening for malignant neoplasm of prostate COMPREHENSIVE METABOLIC QZEIIKcuajzh62/15/2025 8:54 AM EDT Medicare annual wellness visit, initial Hypokalemia CBC (INCLUDES DIFF/PLT)Hinuxub2612/10/2024 8:54 AM EDT Medicare annual wellness visit, initial Difficulty in walking Acute renal failure, unspecified acute renal failure type from Last 3 Months Results * (ABNORMAL) TSH W/REFLEX TO FT4 (12/10/2024 8:54 AM EDT)ComponentValueRef Range Test MethodAnalysis TimePerformed AtPathologist SignatureTSH W/REFLEX TO FT4 0.23(L)0.40 - 4.50 mIU/LQUESTSpecimen (Source)Anatomical Location / Laterality Collection Method / VolumeCollection TimeReceived Time12/10/2024 8:54 AM EDT 12/10/2024 3:46 PM EDT Narrative [facility] - 12/18/2024 11:28 AM EDT FASTING:YES FASTING: YES Resulting Agency Comment Performing Organization Information ?Site ID: QPT ?Name: [facility] ?Address: [address] [place] [phone] ?Director: Julio Nicole MD Authorizing ProviderResult TypeResult StatusVíctor Field MDLAB BLOOD ORDERABLES Final ResultPerforming OrganizationAddressCity/State/ZIP CodePhone Number [facility] * (ABNORMAL) CBC and differential (12/10/2024 8:54 AM EDT)ComponentValueRef RangeTest MethodAnalysis TimePerformed AtPathologist SignatureWHITE BLOOD CELL COUNT6.63.8 - 10.8 Thousand/uLQUESTRED BLOOD CELL COUNT5.084.20 - 5.80 Million/sRNFNPDIOEVYDTFFL59.413.2 - 17.1 g/vXLTJGCYHFCATAAAI43.438.5 - 50.0 % DNJEALCP74.380.0 - 100.0 iLQXEQBQSB76.327.0 - 33.0 pfAEYJKPOVT96.632.0 - 36.0 g/dLQUESTComment: For adults, a slight decrease in the calculated MCHC value (in the range of 30 to 32 g/dL) is most likely not clinically significant; however, it should be interpreted with caution in correlation with other red cell parameters and the patient's clinical condition. RDW14.711.0 - 15.0 %QUESTPLATELET RLQZP236257 - 400 Thousand/uLQUESTMPV8.77.5 - 12.5 fLQUESTABSOLUTE NEUTROPHILS3,0821,500 - 7,800 cells/uLQUESTABSOLUTE LYMPHOCYTES1,512579 - 3,900 cells/uLQUESTABSOLUTE SSVYHWLAJ077095 - 950 cells/uL QUESTABSOLUTE KKPFXAVFHWO992(H)15 - 500 cells/uLQUESTABSOLUTE TDMDGVIZL379 - 200 cells/xHKARMCLCYJIVLKLKE32.7%WEIXPZZAHLBZKJPK93.6%EOXGRXOKYSWKSE89.6%QUEST KTKIDGBEHBJ02.6%QUESTBASOPHILS0.5%QUESTSpecimen (Source)Anatomical Location / LateralityCollection Method / VolumeCollection TimeReceived TimeBloodVenous blood specimen / Dwcnlar4212/10/2024 8:54 AM EDT1 3:46 PM EDT Narrative [facility] - 12/18/2024 11:28 AM EDT FASTING:YES FASTING: YES Resulting Agency Comment Performing Organization Information ?Site ID: QTW ?Name[facility] ?Address: [address] [place] [phone] ?Director: Nisha Schroeder Authorizing ProviderResult TypeResult StatusVíctor Field MDLAB BLOOD ORDERABLES Final ResultPerforming OrganizationAddressCity/State/ZIP CodePhone Number [facility] * T4, free (12/10/2024 8:54 AM EDT)ComponentValueRef RangeTest MethodAnalysis TimePerformed AtPathologist SignatureT4, FREETNPng/dLQUESTComment: TEST NOT PERFORMED. Quantity not sufficient. Specimen (Source)Anatomical Location / LateralityCollection Method / Volume Collection TimeReceived Time12/10/2024 8:54 AM EDT1 3:46 PM EDT Narrative [facility] - 12/18/2024 11:28 AM EDT FASTING:YES FASTING: YES Resulting Agency Comment Performing Organization Information ?Site ID: QPT ?Name: [facility] ?Address: [address] [place] [address], [address] [place] [phone] ?Director: Julio Nicole MD Authorizing ProviderResult TypeResult StatusVíctor MISHRA BLOOD ORDERABLES Final ResultPerforming OrganizationAddressCity/State/ZIP CodePhone Number [facility] * PSA (12/10/2024 8:54 AM EDT)ComponentValueRef RangeTest MethodAnalysis Time Performed AtPathologist SignaturePSA, TOTAL0.69< OR = 4.00 ng/mLQUESTComment: The total PSA value from this assay [...] evidence of the presence or absence of disease. Specimen (Source)Anatomical Location / LateralityCollection Method / Volume Collection TimeReceived TimeBloodVenous blood specimen / Zcvpodl1512/10/2024 8:54 AM EDT1 3:46 PM EDT Narrative [facility] - 12/18/2024 11:28 AM EDT FASTING:YES FASTING: YES Resulting Agency Comment Performing Organization Information ?Site ID: QPT ?Name: [facility] ?Address: [address] [place] [address], [address] [place] [phone] ?Director: Julio Nicole MD Authorizing ProviderResult TypeResult StatusVíctor MISHRA BLOOD ORDERABLES Final ResultPerforming OrganizationAddressCity/State/ZIP CodePhone Number [facility] * (ABNORMAL) Lipid panel (12/10/2024 8:54 AM EDT)ComponentValueRef RangeTest MethodAnalysis TimePerformed AtPathologist SignatureCHOLESTEROL, FWUKG559<200 mg/dLQUESTHDL UPDOPOYPODW25> OR = 40 mg/fORUWLHXAQVMMTDPKHJF822<150 mg/dLQUEST LDL NAIUTYXCZDM100(H)mg/dL (calc)QUESTComment: Reference range: <100 Desirable range <100 mg/dL for primary prevention; <70 mg/dL for patients with CHD or diabetic patients with > or = 2 CHD risk factors. LDL-C is now calculated using the Pilo-Conway calculation, which is a validated novel method providing better accuracy than the Friedewald equation in the estimation of LDL-C. Pilo SS et al. AGUSTINA. 2013;310(42): 6588-1179 (http://education.[employer].Anaplan/faq/KBS107) CHOL/HDLC RATIO4.1<5.0 (calc)QUESTNON HDL PNHAUNPNHXL250(H)<130 mg/dL (calc) QUESTComment: For patients with diabetes plus 1 major ASCVD risk factor, treating to a non-HDL-C goal of <100 mg/dL (LDL-C of <70 mg/dL) is considered a therapeutic option. Specimen (Source)Anatomical Location / LateralityCollection Method / Volume Collection TimeReceived TimeBloodVenous blood specimen / Sbewabp8512/10/2024 8:54 AM EDT1 3:46 PM EDT Narrative [facility] - 12/18/2024 11:28 AM EDT FASTING:YES FASTING: YES Resulting Agency Comment Performing Organization Information ?Site ID: QPT ?Name: [facility] ?Address: [address] [place] [address], [address] [place] [phone] ?Director: Julio Nicole MD Authorizing ProviderResult TypeResult StatusVíctor Field MDLAB BLOOD ORDERABLES Final ResultPerforming OrganizationAddressCity/State/ZIP CodePhone Number [facility] * Comprehensive metabolic panel (12/10/2024 8:54 AM EDT)ComponentValueRef Range Test MethodAnalysis TimePerformed AtPathologist DxkdwqrobSzdanin3332 - 99 mg/dLQUESTComment: ? Fasting reference interval VZQ127 - 25 mg/dLQUESTCreatinine1.250.70 - 1.28 mg/fBXLCXXLIKQ50> OR = 60 mL/min/1.56s0COQLWEYU/CREATININE RATIOSEE NOTE: (calc)QUESTComment: ?? Not Reported: BUN and Creatinine are within ?? reference range. ? Xttbpv375510 - 146 mmol/LQUESTPotassium, Bld4.83.5 - 5.3 mmol/TWSAOMFqewuikq146 98 - 110 mmol/LQUESTCarbon Upzlafq8759 - 32 mmol/LQUESTCalcium9.38.6 - 10.3 mg/dLQUESTPROTEIN, TOTAL7.36.1 - 8.1 g/dLQUESTALBUMIN4.53.6 - 5.1 g/dLQUEST GLOBULIN2.81.9 - 3.7 g/dL (calc)QUESTALBUMIN/GLOBULIN RATIO1.61.0 - 2.5 (calc) QUESTBILIRUBIN, TOTAL1.00.2 - 1.2 mg/dLQUESTALKALINE FWMEUFDUDIQ9103 - 144 U/L YUPCBTCH2244 - 35 U/LQUESTComment: Results slightly increased due to hemolysis. MTT519 - 46 U/LQUESTSpecimen (Source)Anatomical Location / LateralityCollection Method / VolumeCollection TimeReceived TimeBloodVenous blood specimen / Unknown 12/10/2024 8:54 AM EDT1 3:46 PM EDT Narrative [facility] - 12/18/2024 11:28 AM EDT FASTING:YES FASTING: YES Resulting Agency Comment Performing Organization Information ?Site ID: QTW ?Name: [facility] ?Address: [address] [place] [phone] ?Director: Nisha Schroeder Authorizing ProviderResult TypeResult StatusVíctor Field MDLAB BLOOD ORDERABLES Final ResultPerforming OrganizationAddressCity/State/ZIP CodePhone Number [facility] from Last 3 Months Insurance Care Teams Team MemberRelationshipSpecialtyStart DateEnd Date Víctor Field MD [address] [facility] [address] [place] [address] [facility]
--- OUTSIDE RECORDS SUMMARY | 2025-01-06 07:50 | XMS_ITS | Clinical Summary ---
Author Organization [facility] Address [id number] [place] [address] Care Team Providers Care Site Acquisition Specialist Name Role Phone Unavailable Primary Care Provider Unavailabl e Social History Tobacco UseTypesPacks/DayYears UsedDateSmoking Tobacco: Never AssessedChildcare AnswerDate FpssjadvVngpnkwfnNzovrrx17/12/2019EmploymentAnswerDate Recorded YkjspddfyjHwqrvjg11/12/2019Sex and Gender InformationValueDate RecordedSex Assigned at BirthNot on fileLegal SvdRkvs3210/01/2014 11:39 AM EDTGender Identity Not on fileSexual OrientationNot on file Plan of Treatment Not on file Medical Devices Not on file
--- OUTSIDE RECORDS SUMMARY | 2025-01-06 07:50 | XMS_ITS | Encounter Summary ---
Author Organization [facility] Address [address] [place] [address] Care Team Providers Care Beauty School Instructor Name Role Phone Víctor Magdaleno MD Primary Care Provider [phone] Laure Johnson FRANCHISE BROKER Unavailable Encounter Details DateTypeDepartmentCare Team (Latest Contact Info)Tbfquerbdym78/09/2024linisync Result Encounter [facility] External Department Unsolicited Provider, Generic External Data Social History Tobacco UseTypesPacks/DayYears UsedDateSmoking Tobacco: Never AssessedPHQ-2 AnswerDate RecordedPatient Health Questionnaire-2 Zusri991Sex and Gender InformationValueDate RecordedSex Assigned at BirthNot [...] 9:00 AM Belem Jaime MAPatient Health Questionnaire-2 Vocdl957 9:00 AM Belem Jaime MA documented as of this encounter Plan of Treatment Not on file documented as of this encounter Procedures Procedure NamePriorityDate/TimeAssociated DiagnosisCommentsXR ABDOMEN 1V 11/05/2023 10:12 AM EDT documented in this encounter Results * XR ABDOMEN 1V (11/05/2023 10:12 AM EDT)Anatomical RegionLateralityModality OtherSpecimen (Source)Anatomical Location / LateralityCollection Method / VolumeCollection TimeReceived Time11/05/2023 10:12 AM EDT Narrative 11/05/2023 10:14 AM EDT [facility] ?[address] ? [place] [address] ?XRay Report ? Signed ? Patient: CALDWELLFIONA F ? MR#: [id number] ?? : 1955 ?Acct:[id number] ?? Age/Sex: 68 / M ?ADM Date: 11/02/23 ?? Loc: RAD ? Attending Dr: Gladis Bright M.D. ? Ordering Physician: Gladis Bright M.D. ?? Date of Service: 11/02/23 ?? Procedure(s): XR abdomen 1V ?? Accession Number(s): [id number] ? cc: VÍCTOR MAGDALENO ; Gladis Bright M.D. ? [facility] ? [address] [place] [address] ? [place] [address] ? Patient Name: ?? FIONA CALDWELL ? MRN: [facility]:[id number] ? date: 1955 ?Sex: M ?? Assigned Patient Location: RAD ?? Current Patient Location: RAD ?? Accession/Order Number: [id number] ?? Exam Date: 11/02/2023 ??16:55 ?Report Date: 11/05/2023 ??10:12 ? At the request of: ?? GLADIS ??KAILA ? Procedure: ??XR abdomen 1V ? EXAMINATION: XR abdomen 1V ? HISTORY: Kidney stone ? COMPARISON: 06/21/2023 ? FINDINGS: ?? KIDNEY/URETER - RIGHT: No visible renal or ureteral calcifications. ?? KIDNEY/URETER - LEFT: 9 mm calcification lower pole of the left kidney ?? PELVIS: No visible ureteral calcifications. Any visible calcifications favor ?? phleboliths. ?? BOWEL: No abnormal dilation or deviation. ?? BONES: No acute abnormality. Moderate spondylosis ?? OTHER: Negative. No abnormal gaseous collections. ? XR/XR abdomen 1V ?? IMPRESSION: ? 9 mm left nephrolith ? Electronically authenticated by: CAPRICE ??HAMMAD ?? Date: 11/05/2023 ??10:12 ? Dictated By: ?Caprice Cueva M.D. ? Signed By: ?11/05/23 1014 ? DD/ 1012 ? TD/TT: ? [place] Mold Maker: Procedure Note Radiology, Radiologist, MD - 11/05/[address] [address] XRay Report Signed Patient: FIONA CALDWELL FMR#: [id number] : 1955cct:[id number] Age/Sex: 68 / MADM Date: 11/02/23 Loc: RAD Attending Dr: Gladis Bright M.D. Ordering Physician: Gladis Bright M.D. Date of Service: 11/02/23 Procedure(s): XR abdomen 1V Accession Number(s): [id number] cc: VÍCTOR MAGDALENO ; Gladis Bright M.D. The [address] [address] Patient Name: FIONA CALDWELL MRN: [id number] date: 1955 Sex: M Assigned Patient Location: [facility] Current Patient Location: [facility] Accession/Order Number: [id number] Exam Date: 11/02/2023 16:55 Report Date: 11/05/2023 10:12 At the request of: GLADIS BRIGHT Procedure: XR abdomen 1V EXAMINATION: XR abdomen 1V HISTORY: Kidney stone COMPARISON: 06/21/2023 FINDINGS: KIDNEY/URETER - RIGHT: No visible renal or ureteral calcifications. KIDNEY/URETER - LEFT: 9 mm calcification lower pole of the left kidney PELVIS: No visible ureteral calcifications. Any visible calcificationsfavor phleboliths. BOWEL: No abnormal dilation or deviation. BONES: No acute abnormality. Moderate spondylosis OTHER: Negative. No abnormal gaseous collections. XR/XR abdomen 1V IMPRESSION: 9 mm left nephrolith Electronically authenticated by: CAPRICE CUEVA Date: 11/05/2023 10:12 Dictated By: Caprice Cueva M.D. Signed By:11/05/23 1014 DD/ 1012 TD/TT: [place] Mold Maker: Authorizing ProviderResult TypeResult StatusGeneric External Data Provider CLINISYNC IMAGINGFinal Result documented in this encounter Visit Diagnoses Not on filedocumented in this encounter Care Teams Team MemberRelationshipSpecialtyStart DateEnd Date Víctor Magdaleno MD [address] [facility] [address] [place] [address] PCP - GeneralFamily Medicine07/04/22 Laure Johnson, CHUCK [address] [facility] [address] [place] [address] PCP - [place] [facility]/documented as of this encounter
--- NOTE | 2025-01-06 08:04 | CT_ITS ---
The [address] [address] Patient Name: FIONA BOSS MRN: [id number] date: 1955 Sex: M Assigned Patient Location: LAB Current Patient Location: LAB Accession/Order Number: [id number] Exam Date: 01/06/2025 08:34 Report Date: 01/06/2025 09:46 At the request of: ARIANA MAGDALENO Procedure: CT angio chest CT PULMONARY ANGIOGRAM WITH CONTRAST CLINICAL HISTORY: Follow-up pulmonary embolism I26.99 COMPARISON: 12/18/2023 TECHNIQUE: Spiral images were obtained through the chest following intravenous administration of 100 mL of Omnipaque 350. Images were reviewed using both narrow and wide window settings. Sagittal, coronal and 3 D volume-rendered reconstructions were performed and reviewed. This CT exam was performed using one or more following dose reduction techniques: Automated exposure control, adjustment of the mA and/or kV according to patient size, or use of iterative reconstruction technique. FINDINGS: The heart is top normal in size. There is no pericardial effusion. Coronary disease is seen. The ascending aorta is mildly ectatic. No dissection is seen. Mild plaque is present at the aortic arch and descending aorta. There is adequate opacification of the pulmonary arteries. No emboli are identified. A few small nonpathologic lymph nodes are seen. There is slight levoscoliotic curvature and degenerative change at the spine. Mild atelectasis and/or scarring is present, greatest at the right lower lobe which is similar to the prior. There is no additional consolidation, pleural effusion or pneumothorax. There are lower lobe pulmonary nodules measuring up to 4 mm in size which were also seen previously. Limited cuts through the upper abdomen show a potential small hepatic cysts. There is cholelithiasis. Colonic diverticula are noted. CT/CT angio chest IMPRESSION: NO CT EVIDENCE OF PULMONARY EMBOLISM. MINOR ATELECTASIS AND SCARRING. STABLE LOWER LOBE PULMONARY NODULES. Impression dictated by: Ariana Paez M.D. 01/06/2025 9:46 AM Dictation Location: [place] [address] Electronically authenticated by: [id number] Y Date: 01/06/2025 09:46
[2025-01-06 08:06] LABS: Estimated GFR (African America >60 (>=60 mL/min/1.73m^2); Estimated GFR (Non-African Ame 51 (>=60 mL/min/1.73m^2)
== END 2025-01-06 07:46 | disposition home or self-care (01) ==
LOC: LAB 07:47
PROVIDERS: PCP Family Medicine; Visit Provider Family Medicine
DX: I26.99 Other pulmonary embolism without acute cor pulmonale (principal); R91.8 Other nonspecific abnormal finding of lung field
CPT/HCPCS: 36415; 71275; 82565; Q9967